=== PATIENT | male | born 1950 | race Caucasian/White ===

== ENCOUNTER 2018-07-13 18:55 | Inpatient (IN) | payer MEDICARE, OTHER ==
[2018-07-13 19:29] LABS: ABS Basophils 0.1 10^3/ul (0-0.2); ABS Eosinophils 0.2 10^3/ul (0-0.6); ABS Lymphocytes 1.8 10^3/ul (1.0-4.8); ABS Monocytes 0.5 10^3/ul (0-0.8); ABS Nucleated RBC 0 10^3/ul; Eosinophil % 1.7 %; Hematocrit 28 % (42-52); Hemoglobin 9.3 g/dl (14.0-18.0); Lymphocyte % 18.6 %; Mean Corpuscular HGB Conc 33 g/dl (31-36); Mean Corpuscular Hemoglobin 30 pg (27-31); Mean Corpuscular Volume 91 fL (80-94); Mean Platelet Volume 8.5 fL (7.4-10.4); Nucleated Red Blood Cells % 0; Platelet Count 323 10^3/ul (150-450); Red Blood Count 3.12 10^6/ul (4.00-5.40); Red Cell Distribution Width 16 % (10.5-15); White Blood Count 9.6 10^3/ul (3.5-10.8)
--- NOTE | 2018-07-13 19:38 | ED ---
Shortness of Breath - HPI Summary HPI Summary: Patient sent to the ED by Dr. Weber urology complains of cold symptoms including nasal congestion, dry cough, 2 weeks, peripheral edema 5 days ( right lower extremity worse than left) exertional shortness of breath 3 days.. Patient has history of renal failure and urine self catheter. Patient also states that he has extreme whitecoat hypertension syndrome up into the 200s. Family states patient has tendency to understates symptoms. - History of Current Complaint Chief Complaint: EDShortnessOfBreath Time Seen by Provider: 07/13/18 19:11 Hx Obtained From: Patient, Family/Director [employer] Onset/Duration: Gradual Onset Current Severity: Moderate Dyspnea At: Exertion Aggrevating Factors: Nothing Alleviating Factors: Nothing Associated Signs & Symptoms: Cough (Nonproductive), Nasal Congestion - Allergy/Home Medications Allergies/Adverse Reactions: Allergies Allergy/AdvReac Type Severity Reaction Status Date / Time No Known Allergies Allergy Verified 07/13/18 19:02 PMH/Surg Hx/FS Hx/Imm Hx Endocrine/Hematology History: Denies: Hx Anticoagulant Therapy Cardiovascular History: Denies: Hx Pacemaker/ICD History: Reports: Hx Acute Renal Failure, Other Problems/Disorders - U/O UP AT NIGHT, PROSTATE SLOW URINATION Denies: Hx Benign Prostatic Hyperplasia, Hx Chronic Renal Failure, Hx Dialysis, Hx Kidney Infection, Hx Kidney Stones Sensory History: Reports: Hx Contacts or Glasses Denies: Hx Cataracts, Hx Eye Injury, Hx Eye Prosthesis, Hx Glaucoma, Hx Legally Blind, Hx Macular Degeneration, Hx Vision Problem, Hx Deafness, Hx Hearing Aid, Hx Hearing Problem, Other Sensory Impairments Opthamlomology History: Reports: Hx Contacts or Glasses Denies: Hx Cataracts, Hx Eye Injury, Hx Eye Prosthesis, Hx Glaucoma, Hx Legally Blind, Hx Macular Degeneration, Hx Vision Problem, Other Sensory Impairments Psychiatric History: Reports: Hx Anxiety Denies: Hx Panic Disorder - Surgical History Surgery Procedure, Year, and Place: tonsilectomy Infectious Disease History: No Infectious Disease History: Denies: Traveled Outside the [place] in Last 30 Days - Family History Known Family History: Positive: Unknown - Social History Alcohol Use: Rare Substance Use Type: Reports: None Smoking Status (MU): Never Smoked Tobacco Have You Smoked in the Last Year: No Review of Systems Constitutional: Negative Eyes: Negative Positive: Nasal Discharge Cardiovascular: Negative Positive: Shortness Of Breath, Cough Gastrointestinal: Negative Genitourinary: Negative Musculoskeletal: Negative Skin: Negative Neurological: Negative Psychological: Normal All Other Systems Reviewed And Are Negative: Yes Physical Exam - Summary Physical Exam Summary: Rales bilaterally. Mild peripheral edema bilateral lower extremities, right worse than left. Triage Information Reviewed: Yes Vital Signs On Initial Exam: Initial Vitals Temp Pulse Resp BP Pulse Ox 97.7 F 113 16 154/86 98 07/13/18 19:03 07/13/18 19:03 07/13/18 19:03 07/13/18 19:03 07/13/18 19:03 Vital Signs Reviewed: Yes Appearance: Positive: Well-Appearing Skin: Positive: Warm Head/Face: Positive: Normal Head/Face Inspection Eyes: Positive: Normal Neck: Positive: Supple Respiratory/Lung Sounds: Positive: Rales - bilat Cardiovascular: Positive: Normal Abdomen Description: Positive: Nontender Musculoskeletal: Positive: Normal Neurological: Positive: Normal Psychiatric: Positive: Normal AVPU Assessment: Alert - Tariq Coma Scale Best Eye Response: 4 - Spontaneous Best Motor Response: 6 - Obeys Commands Best Verbal Response: 5 - Oriented Coma Scale Total: 15 Diagnostics - Vital Signs Vital Signs Temp Pulse Resp BP Pulse Ox 07/13/18 19:03 97.7 F 113 16 154/86 98 - Laboratory Lab Results: Lab Results 07/13/18 Range/Units 19:20 WBC 9.6 (3.5-10.8) 10^3/ul RBC 3.12 L (4.00-5.40) 10^6/ul Hgb 9.3 L (14.0-18.0) g/dl Hct 28 L (42-52) % MCV 91 (80-94) fL MCH 30 (27-31) pg MCHC 33 (31-36) g/dl RDW 16 H (10.5-15) % Plt Count 323 (150-450) 10^3/ul MPV 8.5 (7.4-10.4) fL Neut % (Auto) 73.0 % Lymph % (Auto) 18.6 % Mclean % (Auto) 5.7 % Eos % (Auto) 1.7 % Baso % (Auto) 1.0 % Absolute Neuts (auto) 7.0 (1.5-7.7) 10^3/ul Absolute Lymphs (auto) 1.8 (1.0-4.8) 10^3/ul Absolute Monos (auto) 0.5 (0-0.8) 10^3/ul Absolute Eos (auto) 0.2 (0-0.6) 10^3/ul Absolute Basos (auto) 0.1 (0-0.2) 10^3/ul Absolute Nucleated RBC 0 10^3/ul Nucleated RBC % 0 Result Diagrams: 07/13/18 19:20 07/13/18 19:20 Lab Statement: Any lab studies that have been ordered have been reviewed, and results considered in the medical decision making process. Course/Dx - Course Course Of Treatment: Patient sent to the ED by Dr. Weber urology complains of cold symptoms including nasal congestion, dry cough, 2 weeks, peripheral edema 5 days (right lower extremity worse than left) exertional shortness of breath 3 days.. Patient has history of renal failure and urine self catheter. Patient also states that he has extreme whitecoat hypertension syndrome up into the 200s. Family states patient has tendency to understates symptoms. Physical exam:Rales bilaterally. Mild peripheral edema bilateral lower extremities, right worse than left. Triage vital signs within normal limits. Blood pressure in exam room elevated to 220/120. Checked manually 218/122. Patient states he gets extreme whitecoat syndrome with blood pressure elevating into the 200s. BP elevated, vital signs otherwise unremarkable. Creatinine 11.2. Hemoglobin 9.3. Elevated initial troponin 0.19. Potassium 4.8. BNP 7713. Discussed patient with Dr. Gilliam representing Dr. Weber nephrology, who recommended admission to the hospitalist rather than urgent transfer for dialysis. - Diagnoses Provider Diagnoses: Chronic anemia, Acute on chronic renal failure, CHF (congestive heart failure) Discharge - Sign-Out/Discharge Documenting (check all that apply): Patient Departure - Discharge Plan Condition: Stable Disposition: ADMITTED TO [facility] Referrals: Connor Hunter MD [Primary Care Provider] - - Billing Disposition and Condition Condition: STABLE Disposition: Admitted to [facility]
[2018-07-13 19:45] LABS: ALT 28 U/L (7-52); AST 24 U/L (13-39); Albumin 3.8 g/dL (3.2-5.2); Albumin/Globulin Ratio 1.2 (1-3); Alkaline Phosphatase 72 U/L (34-104); Anion Gap 16 mmol/L (2-11); BUN/Creatinine Ratio 10.8 (8-20); Blood Urea Nitrogen 121 mg/dL (6-24); C Reactive Protein 15.36 mg/L (<8.01); CO2 Carbon Dioxide 24 mmol/L (22-32); Calcium 10.1 mg/dL (8.6-10.3); Chloride 96 mmol/L (101-111); EGFR Non-African American 4.6 (>60); Globulin 3.3 g/dL (2-4); Glucose 120 mg/dL (70-100); Potassium 4.8 mmol/L (3.5-5.0); Sodium 136 mmol/L (135-145); Total Protein 7.1 g/dL (6.4-8.9)
[2018-07-13] MEDS ORDERED: LORazepam INJ* 2 MG/ML 1 ML VIAL IV PUSH ONE (20:06)
[2018-07-13] MEDS ORDERED: Albuterol 2.5 MG/3 ML NEB.SOL* (0.083%) INH PRN (20:23)
--- NOTE | 2018-07-13 20:52 | ADMNOTE ---
Subjective Date of Service: 07/13/18 Interval History: code status full this is admission h/p source from hpi this is a 67 yr old wm who is known to renal service was brought in by girlfriend due to his sob and leg/feet edema. girlfriend was out of town for one week and just came back yesterday. pt drove to pick her up in airport but was so sob that had to drive back from [place] airport. she said his sob has been better---> she later found his leg/feet were very swollen during dinner time and decided to seek medical attention. as per girlfriend, pt has been very vague reg his medical complaints. pt told her that he prob has a cold about 2 weeks ago---> girlfriend called home while away one week ago ---> found pt sounded different over the phone. pt told her that he just had a cold but has been better symptoms robison until she came back yesterday. pt does have increased fatique sob as per nevaehienjuanis for one week. he was here 4 yrs ago for acute renal failure with creatinine around 5.0 has been f/u with Dr Andre rolon for renal problem. phx htn with a component of whitecoat htn cri anxiety chronic anemia with hg around 10 hx of obstructive uropathy doing self cath at home ---> ? atonic bladder pshx dened social hx no cig no etoh due to brain tumor 15 yrs has been with girlfriend for 3 yrs, able to ambulate indp retired fhx denied any htn/dm/cad/cva or familiar renal dz including polyscystic dz Review of Systems - Measurements Intake and Output: Intake and Output Last 24 Hours 07/11/18 07/12/18 07/13/18 07/14/18 06:59 06:59 06:59 06:59 Weight 175 lb - Review of Systems General Comments: sob leg or feet edema Objective Active Medications: Albuterol (Ventolin 2.5 Mg/3 Ml Neb.Janee*) 2.5 mg INH RT.[id number] AWAKE PRN PRN Reason: sob/wheezing Bumetanide 10 mg/ IV Solution 80 mls @ 8 mls/hr IV .PER RATE ALEXI; Protocol Metolazone (Zaroxolyn Tab*) 5 mg PO DAILY@0830 [facility] Vital Signs - 8 hr 07/13/18 07/13/18 07/13/18 19:03 19:15 19:16 Temperature 97.7 F Pulse Rate 113 114 114 Respiratory 16 Rate Blood Pressure 154/86 223/149 (mmHg) O2 Sat by Pulse 98 97 96 Oximetry 07/13/18 07/13/18 19:30 20:17 Temperature Pulse Rate Respiratory 16 20 Rate Blood Pressure 226/131 (mmHg) O2 Sat by Pulse Oximetry Oxygen Devices in Use Now: Nasal Cannula Appearance: nad Eyes: No Scleral Icterus, PERRLA Ears/Nose/Mouth/Throat: NL Teeth, Lips, Gums, Clear Oropharnyx, Mucous Membranes Moist Neck: NL Appearance and Movements; NL JVP, Trachea Midline, No Thyroid Enlargement, Masses Respiratory: Symmetrical Chest Expansion and Respiratory Effort - decreased b/s r> r with few basilar rales not in respiratory distress , - Cardiovascular: NL Sounds; No Murmurs; No JVD, RRR Abdominal: NL Sounds; No Tenderness; No Distention Extremities: - - + 3 pedal edema from foot to knee b/l able to raise ue and le against gravity Skin: No Rash or Ulcers, - - pale looking Neurological: Alert and Oriented x 3, NL Sensation, NL Muscle Strength and Tone Result Diagrams: 07/13/18 19:20 07/13/18 19:20 Additional Lab and Data: Lab Results 07/13/18 Range/Units 19:20 WBC 9.6 (3.5-10.8) 10^3/ul RBC 3.12 L (4.00-5.40) 10^6/ul Hgb 9.3 L (14.0-18.0) g/dl Hct 28 L (42-52) % MCV 91 (80-94) fL MCH 30 (27-31) pg MCHC 33 (31-36) g/dl RDW 16 H (10.5-15) % Plt Count 323 (150-450) 10^3/ul MPV 8.5 (7.4-10.4) fL Neut % (Auto) 73.0 % Lymph % (Auto) 18.6 % Schuyler % (Auto) 5.7 % Eos % (Auto) 1.7 % Baso % (Auto) 1.0 % Absolute Neuts (auto) 7.0 (1.5-7.7) 10^3/ul Absolute Lymphs (auto) 1.8 (1.0-4.8) 10^3/ul Absolute Monos (auto) 0.5 (0-0.8) 10^3/ul Absolute Eos (auto) 0.2 (0-0.6) 10^3/ul Absolute Basos (auto) 0.1 (0-0.2) 10^3/ul Absolute Nucleated RBC 0 10^3/ul Nucleated RBC % 0 EKG Data: ns no acute st t change seen no peak t wave Assess/Plan/Problems-Billing Assessment: this is a 67 yr old wm with hx of cri with baseline creatinine 5.0 4 yrs ago was brought in to er with increased feet/leg edema and sob ---> girlfriend says he might have a cold two weeks ago but she was away until yesterday and found pt was in sig sob with le edema. intial creatinine is 12 but bicarb/k were within normal limits. initial bnp is close to 8000. chest x ray showed cephalization and ? rml infil ---> ct abd to r/o hydro was done which showed no hyro but + distended gallbladder wtih cholelithiasis ( no abd pain with benign abd on exam ) but + r mod pleural effusion and small left pleural effusion with b/ibasilar atelectasis. rml + additional groundglass consolidation/cysts most pronouced on the rll suggestive of active infeciton/inflammation/ edema. 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 will leave for renal to decide ) (2) Volume overload Current Visit: Yes Status: Acute Code(s): E87.70 - FLUID OVERLOAD, UNSPECIFIED SNOMED Code(s): 89168767 Comment: burger inplaced zaroxyline 5 mg daily as per renal bumex ( got ivp from er ) 1 mg/hr for 10 hrs (3) Obstructive uropathy Current Visit: No Status: Suspected Priority: High Onset Date: 06/27/14 Code(s): N13.9 - OBSTRUCTIVE AND REFLUX UROPATHY, UNSPECIFIED SNOMED Code(s): 2413247 Comment: ? atonic bladder ---> selef cath at home burger ck free psa in am (4) Hypertensive urgency Current Visit: Yes Status: Acute Code(s): I16.0 - HYPERTENSIVE URGENCY SNOMED Code(s): 140459033 Comment: labetolol drip ordered as per renal but pharmacy called and stated this med is on national back order and would like to reserve for preg eclampatic pt - lopressor 5 mg along hydralazine 10 q 6 prn ordrered instead tele with anil (5) Elevated C-reactive protein (CRP) Current Visit: Yes Status: Acute Code(s): R79.82 - ELEVATED C-REACTIVE PROTEIN (CRP) SNOMED Code(s): 759317683925076 Comment: not sure it is related to his acute renal failure no wbc no fever on admission blood cx done one set but no abx given yet (6) Pleural effusion, right Current Visit: Yes Status: Acute Code(s): J90 - PLEURAL EFFUSION, NOT ELSEWHERE CLASSIFIED SNOMED Code(s): 76523255 Comment: repeat chest xray ordered for am on bumex drip ck bnp in am (7) Elevated troponin I level Current Visit: Yes Status: Acute Code(s): R74.8 - ABNORMAL LEVELS OF OTHER SERUM ENZYMES SNOMED Code(s): 306432497 Comment: this is related due to his renal failure ekg on admission was neg he took his home asa 325 ---> current asa 325 ON HOLD UNTIL RENAL SEES HIM IN AM ( HE ALREADY TOOK HIS DOSE PRIOR TO ADMISSION ) IN VIEW OF HIS ACUTE RENAL FAILURE echo in am (8) Chronic anemia Current Visit: Yes Status: Acute Code(s): D64.9 - ANEMIA, UNSPECIFIED SNOMED Code(s): 467326415 Comment: baseline hg has around 10 ---> this is prob related to his underlying renal failure iron panel and erythpoientin level ordered for am as well as ldh/lft ( lft on admission wnl 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 does not think he is hemolysis plat wnl as well despite of acute renal failure and no rash) (9) Full code status Current Visit: Yes Status: Acute Code(s): Z78.9 - OTHER SPECIFIED HEALTH STATUS SNOMED Code(s): 593718275 (10) DVT (deep venous thrombosis) Current Visit: Yes Status: Acute Code(s): I82.409 - ACUTE EMBOLISM AND THOMBOS UNSP DEEP VN UNSP LOWER EXTREMITY SNOMED Code(s): 034041595 (11) Distended bladder Current Visit: Yes Status: Acute Code(s): N32.89 - OTHER SPECIFIED DISORDERS OF BLADDER SNOMED Code(s): 85845663 Comment: distended gallbladder with cholelithasis but lft wnl and benign abd moniter lft ordered for am consider deejay oleary in am to eval
[2018-07-13] MEDS ORDERED: Bumetanide IV* 10 MG in PREMIX* 0 ML IV ONE (21:00)
[2018-07-13 21:15] LABS: Iron 59 ug/dL (50-212); Total Iron Binding Capacity 384 mcg/dL (250-450); Transferrin 274 mg/dL (203-362)
[2018-07-13 21:37] LABS: Urine Appearance Cloudy; Urine Bacteria Absent (Absent); Urine Bilirubin Negative (Negative); Urine Blood 2+ (Negative); Urine Color Yellow; Urine Glucose 2+(150 mg/dL) (Negative); Urine Ketones Negative (Negative); Urine Nitrite Negative (Negative); Urine Protein 2+(100 mg/dL) (Negative); Urine Red Blood Cell 3+(>10/hpf) (Absent); Urine Specific Gravity 1.014 (1.010-1.030); Urine Urobilinogen Negative (Negative); Urine White Blood Cell Trace(0-5/hpf) (Absent)
[2018-07-13 21:40] LABS: Urine Creatinine 56.17 mg/dL; Urine Creatinine Concentration 56.17 mg/dL
[2018-07-13] MEDS ORDERED: Metoprolol Tartrate IV* 1 MG/ML 5 ML VIAL IV PRN (21:44)
[2018-07-13] MEDS ORDERED: hydrALAZINE IV* 20 MG/ML VIAL IV SLOW PU PRN (21:45)
[2018-07-13] MEDS: Bumetanide IV* 10 MG in PREMIX* 0 ML IV ONE (22:00)
[2018-07-13] MEDS ORDERED: Labetalol IV* 200 MG in NS 0.9% 250 ML* 160 ML IVPB SCH (22:00)
[2018-07-13 22:16] LABS: UR Microalbumin (mg/L) 2418.9; Urine Microalbumin/Creatinine 4306.3 (<31)
[2018-07-13] MEDS ORDERED: Zolpidem TAB* 5 MG PO ONE (23:00)
[2018-07-14 01:55] LABS: BUN/Creatinine Ratio 11.3 (8-20); Calcium 9.7 mg/dL (8.6-10.3); EGFR Non-African American 4.6 (>60); Potassium 4.4 mmol/L (3.5-5.0)
[2018-07-14] MEDS ORDERED: LORazepam INJ* 2 MG/ML 1 ML VIAL IV PUSH ONE ×2 (02:00→05:20)
[2018-07-14] MEDS ORDERED: LORazepam INJ* 2 MG/ML 1 ML VIAL IV PUSH PRN (02:35)
[2018-07-14] MEDS: Bumetanide IV* 10 MG in PREMIX* 0 ML IV ONE (04:14)
[2018-07-14] MEDS ORDERED: amLODIPine TAB* 5 MG PO ONE (05:30)
[2018-07-14] MEDS ORDERED: hydrALAZINE IV* 20 MG/ML VIAL IV SLOW PU SCH (06:00)
[2018-07-14 06:30] LABS: ABS Basophils 0.1 10^3/ul (0-0.2); ABS Eosinophils 0.1 10^3/ul (0-0.6); ABS Lymphocytes 0.8 10^3/ul (1.0-4.8); ABS Monocytes 0.7 10^3/ul (0-0.8); ABS Neutrophils 6.9 10^3/ul (1.5-7.7); ABS Nucleated RBC 0 10^3/ul; Eosinophil % 1.5 %; Hematocrit 25 % (42-52); Hemoglobin 8.2 g/dl (14.0-18.0); Lymphocyte % 9.1 %; Mean Corpuscular HGB Conc 33 g/dl (31-36); Mean Corpuscular Hemoglobin 30 pg (27-31); Mean Corpuscular Volume 90 fL (80-94); Mean Platelet Volume 9.1 fL (7.4-10.4); Nucleated Red Blood Cells % 0; Platelet Count 260 10^3/ul (150-450); Red Blood Count 2.74 10^6/ul (4.00-5.40); Red Cell Distribution Width 15 % (10.5-15); White Blood Count 8.7 10^3/ul (3.5-10.8)
[2018-07-14 06:41] LABS: INR 1.07 (0.77-1.02)
[2018-07-14 06:47] LABS: ALT 22 U/L (7-52); AST 21 U/L (13-39); Albumin 3.2 g/dL (3.2-5.2); Albumin/Globulin Ratio 1.2 (1-3); Alkaline Phosphatase 64 U/L (34-104); Anion Gap 15 mmol/L (2-11); BUN/Creatinine Ratio 11.8 (8-20); Blood Urea Nitrogen 130 mg/dL (6-24); CO2 Carbon Dioxide 22 mmol/L (22-32); CRP High Sensitivity 14.12 mg/L (<2.00); Calcium 9.4 mg/dL (8.6-10.3); Chloride 98 mmol/L (101-111); EGFR Non-African American 4.7 (>60); Globulin 2.7 g/dL (2-4); Glucose 98 mg/dL (70-100); Magnesium 2.7 mg/dL (1.9-2.7); Phosphorus 6.5 mg/dL (2.5-5.0); Potassium 4.1 mmol/L (3.5-5.0); Sodium 135 mmol/L (135-145); Total Protein 5.9 g/dL (6.4-8.9)
[2018-07-14 07:08] LABS: LDH 353 U/L (140-271)
[2018-07-14 08:50] LABS: Iron 35 ug/dL (50-212); LDH 296 U/L (140-271)
[2018-07-14] MEDS: Metolazone TAB* 5 MG PO SCH (09:11)
[2018-07-14] MEDS: Calcitriol CAP* 0.25 MCG PO SCH ×2 (09:12→21:08)
[2018-07-14] MEDS: Sodium Citrate/Citric Acid* 15 ML UDC PO SCH ×3 (09:12→17:46)
[2018-07-14] MEDS: Sevelamer TAB* 800 MG PO SCH ×3 (11:46→17:46)
--- NOTE | 2018-07-14 11:53 | ECHO ---
Patient: MABLE YOUNGER [facility] Rec#: [id number] : 1950 Date: 07/14/2018 Age: 67y Height: 180 cm / 70.9 in Weight: 79.4 kg / 175.0 lbs Sex: M BSA: 2 Room#: ICU 8 Admit Date#: 07/13/2018 Type: Inpatient Referring: Yeny Tony Reading: Pasha Avalos MD Side Sawyer: Aliza Renteria RN RDCS CC: Connor Hunter MD Transthoracic Echocardiogram Indication: CHF BP: 148/101 HR: 73 Rhythm: NSR Findings History: HTN, CRI, chronic anemia Technical Comments: The study quality is fair. The study was technically limited due to the patient's inability to lay in the left lateral decubitus position. Left Ventricle: The left ventricular chamber size is normal. Moderate concentric left ventricular hypertrophy is observed. There is global hypokinesis of the left ventricle with minor regional variation.the mid to distal inferior segments and the distal anteroapical segments may be relatively more hypokinetic. There is mildly decreased left ventricular systolic function. The estimated ejection fraction is 40-45%. Abnormal left ventricular diastolic function is observed.cannot determine grade. The patient was unable to perform a Valsalva maneuver. Left Atrium: The left atrium is mild to moderately dilated. Right Ventricle: The right ventricular chamber size and systolic function are within normal limits. Right Atrium: The right atrium is mildly dilated. Aortic Valve: The aortic valve is trileaflet. The aortic valve leaflets are mildly thickened. There is aortic annular calcification. There is moderate aortic regurgitation. There is no evidence of aortic stenosis. Mitral Valve: The mitral valve leaflets are mildly thickened. There is mild to moderate mitral regurgitation. There is no evidence of mitral stenosis. Tricuspid Valve: The tricuspid valve structure is not well visualized. There is trace to mild tricuspid regurgitation. Unable to estimate the right ventricular systolic pressure. There is no tricuspid stenosis. Pulmonic Valve: The pulmonic valve appears normal. There is mild pulmonic regurgitation. There is no pulmonic stenosis. Pericardium: There is no significant pericardial effusion. A pericardial fat pad is visualized. A left pleural effusion is present. Aorta: There is no dilatation of the ascending aorta. There is no dilatation of the aortic arch. There is no dilation of the aortic root. Pulmonary Artery: The main pulmonary artery is not well visualized. Venous: The inferior vena cava appears normal in size. There is less than 50% respiratory change in the inferior vena cava dimension. Conclusions Moderate concentric left ventricular hypertrophy is observed. There is global hypokinesis of the left ventricle with minor regional variation; the mid to distal inferior segments and the distal anteroapical segments may be relatively more hypokinetic. The estimated ejection fraction is 40-45%. There is mildly decreased left ventricular systolic function. Abnormal left ventricular diastolic function is observed; cannot determine grade. The left atrium is mild to moderately dilated. The aortic valve leaflets are mildly thickened. There is moderate aortic regurgitation. There is mild to moderate mitral regurgitation. There is trace to mild tricuspid regurgitation. There is mild pulmonic regurgitation. Overall, similar to 06/2014 with slight decrease in reported EF. Unable to compare images directly. Measurements Name Value Normal Range RVDdMajor (2D) 4.1 cm (2.2 - 4.4) RAd ISD 4CH 5.6 cm (3.4 - 4.9) RA (A4C)W 4.3 cm (2.9 - 4.6) IVSd (2D) 1.6 cm (0.6 - 1) LVPWd (2D) 1.5 cm (0.6 - 1) LVIDd (2D) 5.2 cm (3.6 - 5.4) LVIDs (2D) 3.9 cm - LV FS (2D) 25 % (25 - 45) Aortic Annulus 2.2 cm (1.4 - 2.6) Ao root diameter (2D) 3 cm (2.1 - 3.5) Ascending Ao 3.1 cm (2.1 - 3.4) Aortic arch 2.3 cm (1.8 - 3.4) LA dimension (AP) 2D 3.7 cm (2.3 - 3.8) LAd ISD 4CH 5.6 cm (2.9 - 5.3) LA ISD 4CH W 4.4 cm (2.5 - 4.5) Name Value Normal Range LA ESV BP (A/L) index 46.7 ml/m2 - Name Value Normal Range MV E-wave Vmax 0.77 m/sec - MV deceleration time 183 msec - MV A-wave Vmax 0.9 m/sec - MV E:A ratio 0.9 ratio - LV septal e' Vmax 0.07 m/sec - LV lateral e' Vmax 0.06 m/sec - LV E:e' septal ratio 11 ratio - LV E:e' lateral ratio 12.8 ratio - Name Value Normal Range AV Vmax 1.6 m/sec - AV VTI 30.3 cm - AV peak gradient 10 mmHg - AV mean gradient 6 mmHg - LVOT Vmax 1.2 m/sec - LVOT VTI 20.3 cm - LVOT peak gradient 5 mmHg - LVOT mean gradient 3 mmHg - AR PHT 466 msec - GANGA Vmax 0.89 m/sec - Name Value Normal Range IVC diameter 2.1 cm - Name Value Normal Range PV Vmax 0.89 m/sec -
[2018-07-14] MEDS: Bumetanide IV* 0.25 MG/ML 4 ML VIAL SLOW PUSH SCH ×2 (12:02→21:08)
--- NOTE | 2018-07-14 16:29 | PN ---
Subjective Date of Service: 07/14/18 Interval History: SOB little better.Detailed discussion with pt and about dialysis,options, transplant and condition Objective Active Medications: Albuterol (Ventolin 2.5 Mg/3 Ml Neb.Janee*) 2.5 mg INH [id number] AWAKE PRN PRN Reason: sob/wheezing Bumetanide (Bumex*) 2 mg SLOW PUSH BID [facility] Stop: 07/16/18 11:59 Last Admin: 07/14/18 12:02 Dose: 2 mg Calcitriol (Rocaltrol Cap*) 0.25 mcg PO BID [facility] Last Admin: 07/14/18 09:12 Dose: 0.25 mcg Citric Acid/Sodium Citrate (Bicitra*) 30 ml PO TID PC [facility] Last Admin: 07/14/18 12:02 Dose: 30 ml Hydralazine HCl (Apresoline Iv*) 10 mg IV SLOW PU Q4H PRN PRN Reason: BLOOD PRESSURE Lorazepam (Ativan Inj*) 0.5 mg IV PUSH ONCE PRN PRN Reason: ANXIETY Stop: 07/15/18 02:34 Last Admin: 07/14/18 05:19 Dose: 0.5 mg Metolazone (Zaroxolyn Tab*) 5 mg PO DAILY@0830 [facility] Last Admin: 07/14/18 09:11 Dose: 5 mg Metoprolol Tartrate (Lopressor Iv*) 5 mg IV Q6H PRN PRN Reason: BLOOD PRESSURE Sevelamer Carbonate (Renvela Tab*) 800 mg PO TID WITH MEALS [facility] Last Admin: 07/14/18 12:02 Dose: 800 mg Vital Signs - 8 hr 07/14/18 07/14/18 07/14/18 08:30 08:45 09:00 Temperature Pulse Rate 76 77 88 Respiratory 16 21 11 Rate Blood Pressure 153/83 162/88 (mmHg) O2 Sat by Pulse 97 96 93 Oximetry 07/14/18 07/14/18 07/14/18 09:01 09:16 09:30 Temperature Pulse Rate 91 86 80 Respiratory 17 24 20 Rate Blood Pressure 136/84 163/86 174/89 (mmHg) O2 Sat by Pulse 94 95 97 Oximetry 07/14/18 07/14/18 07/14/18 09:45 10:00 10:30 Temperature Pulse Rate 76 87 85 Respiratory 20 16 22 Rate Blood Pressure 150/79 150/88 164/91 (mmHg) O2 Sat by Pulse 97 97 96 Oximetry 07/14/18 07/14/18 07/14/18 11:00 11:30 12:00 Temperature 98.5 F Pulse Rate 76 88 82 Respiratory 18 22 15 Rate Blood Pressure 151/79 160/87 161/88 (mmHg) O2 Sat by Pulse 98 92 98 Oximetry 07/14/18 07/14/18 07/14/18 12:30 13:00 13:30 Temperature Pulse Rate 81 82 74 Respiratory 15 24 17 Rate Blood Pressure 152/82 144/80 129/74 (mmHg) O2 Sat by Pulse 95 97 97 Oximetry 07/14/18 07/14/18 07/14/18 14:00 14:30 15:00 Temperature Pulse Rate 77 76 77 Respiratory 17 16 18 Rate Blood Pressure 151/79 150/74 145/81 (mmHg) O2 Sat by Pulse 96 98 97 Oximetry 07/14/18 07/14/18 07/14/18 15:13 16:00 16:09 Temperature 99.2 F Pulse Rate 80 86 Respiratory 11 24 Rate Blood Pressure 171/89 (mmHg) O2 Sat by Pulse 98 98 Oximetry Oxygen Devices in Use Now: Nasal Cannula, OxyMask Eyes: No Scleral Icterus Ears/Nose/Mouth/Throat: NL Teeth, Lips, Gums Neck: - - JVD present but improved from last night.Maintaining 02 sats Respiratory: Symmetrical Chest Expansion and Respiratory Effort, - - Basal crackles Cardiovascular: NL Sounds; No Murmurs; No JVD, - - 2+ Edema bilateral LE Abdominal: NL Sounds; No Tenderness; No Distention Extremities: - - Edema present no pain Skin: No Rash or Ulcers Neurological: Alert and Oriented x 3, NL Muscle Strength and Tone Result Diagrams: 07/14/18 06:10 07/14/18 06:10 Additional Lab and Data: Lab Results 07/13/18 Range/Units 19:20 WBC 9.6 (3.5-10.8) 10^3/ul RBC 3.12 L (4.00-5.40) 10^6/ul Hgb 9.3 L (14.0-18.0) g/dl Hct 28 L (42-52) % MCV 91 (80-94) fL MCH 30 (27-31) pg MCHC 33 (31-36) g/dl RDW 16 H (10.5-15) % Plt Count 323 (150-450) 10^3/ul MPV 8.5 (7.4-10.4) fL Neut % (Auto) 73.0 % Lymph % (Auto) 18.6 % [place] % (Auto) 5.7 % Eos % (Auto) 1.7 % Baso % (Auto) 1.0 % Absolute Neuts (auto) 7.0 (1.5-7.7) 10^3/ul Absolute Lymphs (auto) 1.8 (1.0-4.8) 10^3/ul Absolute Monos (auto) 0.5 (0-0.8) 10^3/ul Absolute Eos (auto) 0.2 (0-0.6) 10^3/ul Absolute Basos (auto) 0.1 (0-0.2) 10^3/ul Absolute Nucleated RBC 0 10^3/ul Nucleated RBC % 0 Microbiology and Other Data: Microbiology 07/14/18 01:20 Nasal Screen MRSA (PCR) - Final Nasal Mrsa Not Detected EKG Data: ns no acute st t change seen no peak t wave Assess/Plan/Problems-Billing Assessment: 67 y/o with CKD5 with acute worsening,volume overload,hypertensive emergency - Patient Problems (1) Hypertensive emergency Current Visit: Yes Status: Acute Code(s): I16.1 - HYPERTENSIVE EMERGENCY SNOMED Code(s): 890504788960045 Comment: Likely volume driven With weight gain and sig edema Bumex drip and diuretics Labetelolol on back order.Was on IV hydralazine and lopressor prn -Overnight team started Amlodipine.Continue for now despite LE edema as high risk of hyperk with LARISA.Continue IV bumex and metalazone.Add B rhonda till improved in setting of inc troponins while pursuing cardiac w/u (2) Acute on chronic renal failure Current Visit: Yes Status: Acute Code(s): N17.9 - ACUTE KIDNEY FAILURE, UNSPECIFIED; N18.9 - CHRONIC KIDNEY DISEASE, UNSPECIFIED SNOMED Code(s): 621012219 Comment: Renal failure sec to Neurogenic Bladder and chronic kidney damage from urinary retention/?additional reflux nephropathy -Poss FSGS from above CT abd pelvis kidneys atrophic.No hydronephrosis Pt self caths.Garcia cath for strict I/O and help with obstruction PSA Will req urodynamic and f/u records from urology Interestingly pt noted to have 7 g of protein suggesting nephrotic syndrome on spot collection.May be inaccurate.But also noted to have proteinuria before.While this is possible from kidney damage from urinary retention,Also noted to have conc hypertrophy and changes on echo.Will pursue w/u to eval for other etiology predisposing to worsening as well. JAZIEL,ANCA,SPEP,UPEP,free light chains ( eval for amyloid etc),anti gbm,pla2r if avail ( membranous) w/u for completion. Reflux nephropathy can cause FSGS from chronic damage but no serologic marker.Not much kidney really to biopsy.However based on above w/u if further clarity needed, can consider kidney biopsy.Will leave it upto Dr Pickard who knows the pt very well. Completed 10 h bumex drip, will place on bumex 2 mg iv bid No emergent need for HD today.Electrolytes and acid base stable and volume manageable with diuretics.However will likely need dialysis initiated in the next 48-72h based on progress given that he has advanced kidney failure.Plan for Tunelled dialysis catheter with IR tomorrow and dialysis initiation Discussed kidney transplantation with pt and office will initiate referal to transplant center (3) Anemia Current Visit: Yes Status: Acute Code(s): D64.9 - ANEMIA, UNSPECIFIED SNOMED Code(s): 933438137 Comment: sec to renal failure no need for epo and contraindicated with such high bp but will follow closely acutely to eval for pul hemorrhage if acute drop (4) Metabolic acidosis Current Visit: Yes Status: Acute Code(s): E87.2 - ACIDOSIS SNOMED Code(s) : 57193437 Comment: continue bicitra (5) Elevated troponin I level Current Visit: Yes Status: Acute Code(s): R74.8 - ABNORMAL LEVELS OF OTHER SERUM ENZYMES SNOMED Code(s): 879873694 Comment: likely from inc bnp,vol overload and elevation in setting of renal failure however pt high risk for cardiac dx with his underlying renal condition echo w/u as above b rhonda,aspirin,monitor on tele (6) Volume overload Current Visit: Yes Status: Acute Code(s): E87.70 - FLUID OVERLOAD, UNSPECIFIED SNOMED Code(s): 58483622 Comment: as madie above bumex drip transitioning to bumex 2 mg iv bid and metalazone 5 mg po q daily Initiation of dialysis planning BP management to manage flash pul edema Will repeat CXR in am for further evaluation (7) Pulmonary edema Current Visit: No Status: Acute Priority: High Onset Date: 06/27/14 Code (s): J81.1 - CHRONIC PULMONARY EDEMA SNOMED Code(s): 71197125 Comment: see above in vol overload Status and Disposition: Total critical care time spent is 70 mins
[2018-07-14 18:54] LABS: Magnesium 2.8 mg/dL (1.9-2.7)
[2018-07-14 18:59] LABS: Phosphorus 6.9 mg/dL (2.5-5.0)
[2018-07-14] MEDS: Metoprolol Tartrate IV* 1 MG/ML 5 ML VIAL IV PRN (20:15)
[2018-07-14] MEDS: hydrALAZINE IV* 20 MG/ML VIAL IV SLOW PU PRN (23:05)
--- NOTE | 2018-07-15 00:58 | CONS ---
NEPHROLOGY CONSULTATION: DATE OF CONSULT: 07/13/18 REASON FOR CONSULT: [id number] renal failure/volume overload. HISTORY OF PRESENT ILLNESS: A 67-year-old male with a history of chronic kidney disease stage 5, thought to be secondary to neurogenic bladder, evaluated in the ER for shortness of breath. The patient denies any overt shortness of breath, but noted to be extremely edematous with some JVD; also reports that he has gained weight recently and noted to have significant lower extremity edema. The patient was noted to be like this by his who was away for a week and brought the patient then to the ER for further evaluation. The patient's blood pressure in the ER was noted to be 215/130. Initially, it was noted to be 226/131. The patient's prior labs have been reviewed. The patient saw Dr. Pickard in evaluation in March. At that time, his GFR was noted to be less than 10 and his creatinine was noted to be 7. PAST MEDICAL HISTORY: 1. Chronic kidney disease stage 5, as described above. 2. Neurogenic bladder, follows with Urology as an outpatient. 3. The patient was on dialysis for 2 months in 2013, when he was admitted for volume overload and acute kidney injury. He was noted to have flaccid neurogenic bladder at that time and eventually was able to come off dialysis. The patient also reports that he makes about 2 L of urine. 4. The patient self-catheterizes himself at home. 5. Chronic anemia. 6. Anxiety. 7. White-coat hypertension, but the patient has not really been on any blood pressure medications at home. 8. Denies a history of diabetes. MEDICATIONS: Home medication list: 1. Sodium citrate (Bicitra) 30 mL p.o. t.i.d. 2. Sevelamer 800 mg p.o. t.i.d. 3. Calcitriol 0.25 mcg p.o. b.i.d. 4. Aspirin 325 mg p.o. daily p.r.n. SOCIAL HISTORY: Does not smoke cigarettes. No alcohol use. Retired from [employer]. FAMILY HISTORY: Denies any known family history of kidney disease. No known congenital urethral, ureteral, or kidney abnormalities noted in the family. Denies any significant family history of heart disease. REVIEW OF SYSTEMS: Constitutional: Reports feeling very tired. Respiratory: Reports shortness of breath. Cardiovascular: No chest pain, no palpitations. Other review of systems as described in the HPI. Other 14-point review of systems noted to be negative. PHYSICAL EXAM: Vitals on admission notable for blood pressure of 226/131, respiratory rate 16, heart rate 112, temperature 97.7, oxygen saturation 90% on room air, fluctuating between 90% and 97%. HEENT: NC/AT. Heart: S1, S2 present. Regular at the time of exam. Tachycardic at the time of exam. JVD present. Lungs: Noted to have bibasilar crackles. No wheezes. Abdomen: Soft , nontender, no distention. Extremities: Noted to have 2+ edema. Neurologic: Alert and oriented x3. LABORATORY DATA: On admission, sodium 136, potassium 4.8, chloride 96, CO2 24, BUN 121, creatinine noted to be 11.2, glucose noted to be 120. ASSESSMENT AND PLAN: A 67-year-old male with a history of neurogenic bladder and chronic kidney disease stage 5, here with acute worsening in renal function/ volume overload and pulmonary edema. 1. Acute kidney injury on chronic kidney disease, stage 5/volume overload/ pulmonary edema. At this time, the patient's potassium noted to be 4.8. The patient also reports that he makes about 2 L of urine and he self-catheterizes himself. The patient noted to be in significant volume overload, but will acutely manage this with diuretics. We will give the patient 2 mg of IV Bumex and recommended to put the patient on a Bumex drip 10 mg over 10 hours and also recommend addition of metolazone 5 mg p.o. daily. Recommend repeating chest x- ray and monitoring the patient's oxygen status closely. 2. Even though the patient does not require emergent dialysis overnight, based on the patient's progress in the next 24 to 48 hours, the patient would likely need a dialysis initiated as he was already chronic kidney disease stage 5 with worsening with significant volume overload. We will follow the patient closely with the primary team. 3. Hypertensive emergency. Recommend IV labetalol and diuretics as described as the patient's blood pressure seems to be driven significantly by a volume component. 4. With respect to workup for his kidney failure and anasarca, also recommend getting a UA, urine protein and creatinine and a microalbumin/creatinine as the patient was already noted to have more than 3 g of protein during his March visit. If the patient noted to have significant nephrotic range proteinuria, can consider further workup. The patient's etiology of renal failure seems to be secondary to neurogenic bladder and chronic urinary retention and kidney damage; however, a second etiology with acute worsening may also be possible. On the same lines, it would be very important to get a CAT scan of the abdomen and pelvis to evaluate for any hydronephrosis or worsening obstructive uropathy that could be worsening his kidney function acutely and would also be prudent to evaluate for any masses, malignancy and prostate size and function to see if this has any contribution to his renal failure. 5. I recommend getting 2D echocardiogram to evaluate his cardiac function to understand his pulmonary edema and volume overload better. Also serial troponins. 6. Metabolic acidosis. At this time, the patient's bicarb is stable on the Bicitra and this is to be continued. 7. Anemia. The patient does not have any acute indications for blood transfusion or Epogen yet. 8. We will follow the patient closely through his hospital stay in the ICU. Total time spent with the patient is equal to 70 minutes. [id number]/[facility] #: [id number] MTDD
[2018-07-15] MEDS: Metoprolol Tartrate IV* 1 MG/ML 5 ML VIAL IV PRN (03:05)
[2018-07-15 06:36] LABS: ABS Basophils 0.1 10^3/ul (0-0.2); ABS Eosinophils 0.3 10^3/ul (0-0.6); ABS Lymphocytes 1.2 10^3/ul (1.0-4.8); ABS Monocytes 0.6 10^3/ul (0-0.8); ABS Neutrophils 7.7 10^3/ul (1.5-7.7); ABS Nucleated RBC 0 10^3/ul; Eosinophil % 2.7 %; Hematocrit 26 % (42-52); Hemoglobin 8.8 g/dl (14.0-18.0); Lymphocyte % 11.8 %; Mean Corpuscular HGB Conc 34 g/dl (31-36); Mean Corpuscular Hemoglobin 30 pg (27-31); Mean Corpuscular Volume 90 fL (80-94); Mean Platelet Volume 8.6 fL (7.4-10.4); Nucleated Red Blood Cells % 0; Platelet Count 264 10^3/ul (150-450); Red Blood Count 2.88 10^6/ul (4.00-5.40); Red Cell Distribution Width 15 % (10.5-15); White Blood Count 9.8 10^3/ul (3.5-10.8)
[2018-07-15 06:53] LABS: BUN/Creatinine Ratio 10.7 (8-20); Calcium 9.6 mg/dL (8.6-10.3); EGFR Non-African American 4.4 (>60)
--- NOTE | 2018-07-15 07:05 | PN ---
Subjective Date of Service: 07/15/18 Interval History: Feeling "pretty good" today. He is sitting up in the recliner and has no complaints other than being anxious to go home. He is able to lie in bed, he just finds it uncomfortable due to the cords, but denies orthopnea. He has no shortness of breath on 2L O2. He had a nose bleed but says this is not uncommon for him in the winter. His legs feel better and he thinks the swelling has decreased significantly. He has a good appetite. Objective Active Medications: Albuterol (Ventolin 2.5 Mg/3 Ml Neb.Janee*) 2.5 mg INH RT.[id number] AWAKE PRN PRN Reason: sob/wheezing Amlodipine Besylate (Norvasc Tab*) 10 mg PO DAILY [facility] Bumetanide (Bumex*) 2 mg SLOW PUSH BID [facility] Stop: 07/16/18 11:59 Last Admin: 07/14/18 21:08 Dose: 2 mg Calcitriol (Rocaltrol Cap*) 0.25 mcg PO BID [facility] Last Admin: 07/14/18 21:08 Dose: 0.25 mcg Citric Acid/Sodium Citrate (Bicitra*) 30 ml PO TID PC [facility] Last Admin: 07/14/18 17:46 Dose: 30 ml Hydralazine HCl (Apresoline Iv*) 10 mg IV SLOW PU Q4H PRN PRN Reason: SBP > 160 [facility] Last Admin: 07/14/18 23:05 Dose: 10 mg Metolazone (Zaroxolyn Tab*) 5 mg PO DAILY@0830 [facility] Last Admin: 07/14/18 09:11 Dose: 5 mg Metoprolol Tartrate (Lopressor Iv*) 5 mg IV Q6H PRN PRN Reason: SBP > 160 [facility] Last Admin: 07/15/18 03:05 Dose: 5 mg Metoprolol Tartrate (Lopressor Tab*) 25 mg PO DAILY [facility] Sevelamer Carbonate (Renvela Tab*) 800 mg PO TID WITH MEALS [facility] Last Admin: 07/14/18 17:46 Dose: 800 mg Vital Signs - 8 hr 07/14/18 07/14/18 07/15/18 23:16 23:31 00:00 Temperature Pulse Rate 86 84 86 Respiratory 16 15 15 Rate Blood Pressure 174/95 163/78 (mmHg) O2 Sat by Pulse 96 95 94 Oximetry 07/15/18 07/15/18 07/15/18 00:05 00:30 00:43 Temperature 97.8 F Pulse Rate 86 Respiratory 16 12 Rate Blood Pressure 170/93 (mmHg) O2 Sat by Pulse 94 Oximetry 07/15/18 07/15/18 07/15/18 00:58 01:00 01:30 Temperature Pulse Rate 86 87 Respiratory 18 23 18 Rate Blood Pressure 169/97 171/99 (mmHg) O2 Sat by Pulse 94 96 Oximetry 07/15/18 07/15/18 07/15/18 02:00 02:08 02:31 Temperature Pulse Rate 79 83 Respiratory 13 15 14 Rate Blood Pressure 165/98 159/105 (mmHg) O2 Sat by Pulse 96 96 Oximetry 07/15/18 07/15/18 07/15/18 03:00 03:02 03:15 Temperature Pulse Rate 86 86 Respiratory 12 19 17 Rate Blood Pressure 182/101 178/93 (mmHg) O2 Sat by Pulse 97 97 Oximetry 07/15/18 07/15/18 07/15/18 03:30 04:00 04:22 Temperature 98.5 F Pulse Rate 76 73 Respiratory 13 15 16 Rate Blood Pressure 164/97 159/92 (mmHg) O2 Sat by Pulse 95 94 Oximetry 07/15/18 07/15/18 07/15/18 04:30 05:03 05:04 Temperature Pulse Rate 75 75 Respiratory 8 14 13 Rate Blood Pressure 160/98 143/83 (mmHg) O2 Sat by Pulse 96 97 Oximetry 07/15/18 07/15/18 05:30 06:00 Temperature Pulse Rate 72 76 Respiratory 5 16 Rate Blood Pressure 140/80 155/89 (mmHg) O2 Sat by Pulse 97 95 Oximetry Oxygen Devices in Use Now: Nasal Cannula Appearance: alert, comfortable, well appearing, breathing comfortably Eyes: No Scleral Icterus Ears/Nose/Mouth/Throat: NL Teeth, Lips, Gums Neck: - - No JVP Respiratory: Symmetrical Chest Expansion and Respiratory Effort, - - No crackles Cardiovascular: NL Sounds; No Murmurs; No JVD, RRR, - - No rub Abdominal: NL Sounds; No Tenderness; No Distention, No Hepatosplenomegaly Lymphatic: No Cervical Adenopathy Extremities: - - 2+ pitting leg edema, R>L Skin: No Rash or Ulcers Neurological: Alert and Oriented x 3, - - no asterixis Result Diagrams: 07/15/18 06:24 07/15/18 06:24 Additional Lab and Data: Lab Results 07/13/18 Range/Units 19:20 WBC 9.6 (3.5-10.8) 10^3/ul RBC 3.12 L (4.00-5.40) 10^6/ul Hgb 9.3 L (14.0-18.0) g/dl Hct 28 L (42-52) % MCV 91 (80-94) fL MCH 30 (27-31) pg MCHC 33 (31-36) g/dl RDW 16 H (10.5-15) % Plt Count 323 (150-450) 10^3/ul MPV 8.5 (7.4-10.4) fL Neut % (Auto) 73.0 % Lymph % (Auto) 18.6 % [place]ck[place] % (Auto) 5.7 % Eos % (Auto) 1.7 % Baso % (Auto) 1.0 % Absolute Neuts (auto) 7.0 (1.5-7.7) 10^3/ul Absolute Lymphs (auto) 1.8 (1.0-4.8) 10^3/ul Absolute Monos (auto) 0.5 (0-0.8) 10^3/ul Absolute Eos (auto) 0.2 (0-0.6) 10^3/ul Absolute Basos (auto) 0.1 (0-0.2) 10^3/ul Absolute Nucleated RBC 0 10^3/ul Nucleated RBC % 0 Microbiology and Other Data: Microbiology 07/14/18 01:20 Nasal Screen MRSA (PCR) - Final Nasal Mrsa Not Detected EKG Data: ns no acute st t change seen no peak t wave Assess/Plan/Problems-Billing Assessment: This is a 67 year old man with history of CKD who had required HD for a few months 4 years ago; etiology of CKD was thought to be chronic urinary retention ; now admitted with volume overload, worsening renal failure, htn emergency. - Patient Problems (1) Acute on chronic renal failure Current Visit: Yes Status: Acute Code(s): N17.9 - ACUTE KIDNEY FAILURE, UNSPECIFIED; N18.9 - CHRONIC KIDNEY DISEASE, UNSPECIFIED SNOMED Code(s): 048302603 Comment: as above, etiology thought to be from neurogenic bladder/retention and reflux nephropathy; however he has marked proteinuria CT abd pelvis shows atrophic kidneys, no hydro Garcia cath for strict I/O and help with obstruction Serologic work up pending--sent this weekend by Dr. Chapman Good urine output on bumex 2 mg iv bid No need for OFFBEARER SEWER PIPE at this time; lytes and volume acceptable and no overt evidence of uremia Need to discuss plan going forward with Dr. Pickard today (2) Positive for macroalbuminuria Current Visit: Yes Status: Acute Code(s): R80.9 - PROTEINURIA, UNSPECIFIED SNOMED Code(s): 849792307 Comment: work up pending (yinka, anca, etc) biopsy may be warranted? will discuss with nephrology (3) Anemia Current Visit: Yes Status: Acute Code(s): D64.9 - ANEMIA, UNSPECIFIED SNOMED Code(s): 702200711 Comment: stable; likely due to ckd (4) Elevated troponin I level Current Visit: Yes Status: Acute Code(s): R74.8 - ABNORMAL LEVELS OF OTHER SERUM ENZYMES SNOMED Code(s): 175062113 Comment: likely from htn emergency in setting of TERI on CKD however pt high risk for cardiac dx with his underlying renal condition echo b rhonda,aspirin,monitor on tele (5) Hypertensive urgency Current Visit: Yes Status: Acute Code(s): I16.0 - HYPERTENSIVE URGENCY SNOMED Code(s): 101648354 Comment: stable now on metoprolol and amlodipine and bumex (6) Volume overload Current Visit: Yes Status: Acute Code(s): E87.70 - FLUID OVERLOAD, UNSPECIFIED SNOMED Code(s): 25552187 Comment: responding well to bumex iv BP control to prevent flash pulm edema Status and Disposition: Total critical care time spent is 60 min
[2018-07-15 07:18] LABS: Free T4 0.99 ng/dL (0.61-1.12)
[2018-07-15] MEDS: Sodium Citrate/Citric Acid* 15 ML UDC PO SCH ×3 (08:10→17:52)
[2018-07-15] MEDS: Bumetanide IV* 0.25 MG/ML 4 ML VIAL SLOW PUSH SCH ×2 (08:10→20:22)
[2018-07-15] MEDS: Sevelamer TAB* 800 MG PO SCH ×3 (08:10→17:52)
[2018-07-15] MEDS: amLODIPine TAB* 5 MG PO SCH (08:11)
[2018-07-15] MEDS: Metoprolol Tartrate TAB* 25 MG PO SCH (08:11)
[2018-07-15] MEDS: Calcitriol CAP* 0.25 MCG PO SCH ×2 (08:11→20:30)
[2018-07-15] MEDS: Metolazone TAB* 5 MG PO SCH (08:12)
[2018-07-15 09:34] LABS: TSH (Thyroid Stimulating Horm) 4.72 mcIU/mL (0.34-5.60)
[2018-07-16 05:47] LABS: ABS Basophils 0.1 10^3/ul (0-0.2); ABS Eosinophils 0.4 10^3/ul (0-0.6); ABS Lymphocytes 1.1 10^3/ul (1.0-4.8); ABS Monocytes 0.7 10^3/ul (0-0.8); ABS Neutrophils 6.7 10^3/ul (1.5-7.7); ABS Nucleated RBC 0 10^3/ul; Eosinophil % 4.5 %; Hematocrit 25 % (42-52); Hemoglobin 8.5 g/dl (14.0-18.0); Lymphocyte % 12.6 %; Mean Corpuscular HGB Conc 34 g/dl (31-36); Mean Corpuscular Hemoglobin 30 pg (27-31); Mean Corpuscular Volume 90 fL (80-94); Mean Platelet Volume 8.2 fL (7.4-10.4); Nucleated Red Blood Cells % 0; Platelet Count 287 10^3/ul (150-450); Red Blood Count 2.84 10^6/ul (4.00-5.40); Red Cell Distribution Width 15 % (10.5-15)
[2018-07-16 06:02] LABS: EGFR Non-African American 4.2 (>60); Magnesium 2.7 mg/dL (1.9-2.7); Phosphorus 8.1 mg/dL (2.5-5.0); Potassium 3.8 mmol/L (3.5-5.0)
[2018-07-16 06:20] LABS: BUN/Creatinine Ratio 11.4 (8-20)
[2018-07-16 06:35] LABS: Creatinine, Serum 12.05 mg/dL (0.51-0.95)
[2018-07-16 06:36] LABS: Urine Creatinine Concentration 39.67 mg/dL
[2018-07-16 06:58] LABS: Urine TP Concentration 235 mg/dL
--- NOTE | 2018-07-16 09:55 | PN ---
PROGRESS NOTE: DATE OF SERVICE: 07/16/18 HISTORY OF PRESENT ILLNESS: I had seen Mr. Gould yesterday. He had been admitted with an exacerbation of his chronic renal insufficiency secondary to obstructive uropathy. He had previously been on dialysis and had some recovery of renal function when starting on frequent self-catheterizations. He has been having some easy fatigability, some tremulousness. He had noticed some worsening of edema. He had had some weight gain. He was brought into the hospital where he was noted to have a significant elevation in his baseline serum creatinine. We had a prolonged discussion of approximately 45 minutes of the issue of whether to proceed along with dialysis. At this point, I pointed out to him that his renal function was considerably worse than it had been. I pointed out the risks to him including the risk of as well as worsening of his symptomatology. We discussed the issue of the potential for other superimposed nephrologic illnesses particularly because of the development of proteinuria. I discussed with him the issue of immunosuppression should one of those diagnoses be confirmed. He was not interested in proceeding on with immunosuppression even if we found one of those diseases. We discussed the issue of transplantation which is complicated by his neurogenic bladder. I recommended to him that we proceed along with placement of a cuffed tunneled hemodialysis catheter and treatment with hemodialysis and then eventually potentially the movement to home hemodialysis. His significant other was with him in the room during these discussions. I communicated all of this to Dr. Shaver. [id number]/[facility] #: [id number] [place]
[2018-07-16] MEDS ORDERED: ceFAZolin 1 GM in Dextrose (*) 1 GM/50 ML BAG IVPB ONE (10:00)
[2018-07-16] MEDS ORDERED: ceFAZolin 1 GM* X ONE DOSE (AddVan) IVPB ×2 (10:00)
[2018-07-16] MEDS ORDERED: Midazolam* 1 MG/ML 2 ML VIAL (2 MG) ONE (10:07)
[2018-07-16] MEDS ORDERED: fentaNYL* 50 MCG/ML 2 ML VIAL (100 MCG VIAL) ONE (10:08)
[2018-07-16 10:27] LABS: Hepatitis B Surface Antigen Nonreactive (Nonreactive)
[2018-07-16 10:45] LABS: Hepatitis C Antibody Nonreactive (Nonreactive)
[2018-07-16 10:56] LABS: Hepatitis B Surface AB Not Immune (Immune)
[2018-07-16] MEDS: Sodium Citrate/Citric Acid* 15 ML UDC PO SCH ×3 (12:37→17:27)
[2018-07-16] MEDS: Sevelamer TAB* 800 MG PO SCH ×3 (12:37→17:27)
[2018-07-16] MEDS: Bumetanide IV* 0.25 MG/ML 4 ML VIAL SLOW PUSH SCH (13:11)
[2018-07-16] MEDS: amLODIPine TAB* 5 MG PO SCH (13:12)
[2018-07-16] MEDS: Metoprolol Tartrate TAB* 25 MG PO SCH (13:12)
[2018-07-16] MEDS: Metolazone TAB* 5 MG PO SCH (13:12)
[2018-07-16] MEDS: Calcitriol CAP* 0.25 MCG PO SCH ×2 (13:22→20:27)
[2018-07-16] MEDS: hydrALAZINE IV* 20 MG/ML VIAL IV SLOW PU PRN (14:51)
[2018-07-16] MEDS ORDERED: Saline NASAL SPRAY 0.65%* BTL BOTH NARES PRN (15:17)
[2018-07-16] MEDS: Acetaminophen TAB* 325 MG PO PRN ×2 (15:46→20:27)
--- NOTE | 2018-07-16 16:01 | PN ---
Subjective Date of Service: 07/16/18 Interval History: Called for fever and tachycardia. Mr Gould is feeling poorly with chills but no other localizing symptoms. His permcath was placed this morning uneventfully. Objective Active Medications: Acetaminophen (Tylenol Tab*) 650 mg PO Q4H PRN PRN Reason: FEVER Last Admin: 07/16/18 15:46 Dose: 650 mg Albuterol (Ventolin 2.5 Mg/3 Ml Neb.Janee*) 2.5 mg INH [id number] AWAKE PRN PRN Reason: sob/wheezing Amlodipine Besylate (Norvasc Tab*) 10 mg PO DAILY [facility] Last Admin: 07/16/18 13:12 Dose: 10 mg Calcitriol (Rocaltrol Cap*) 0.25 mcg PO BID [facility] Last Admin: 07/16/18 13:22 Dose: 0.25 mcg Citric Acid/Sodium Citrate (Bicitra*) 30 ml PO TID PC [facility] Last Admin: 07/16/18 13:11 Dose: 30 ml Hydralazine HCl (Apresoline Iv*) 10 mg IV SLOW PU Q4H PRN PRN Reason: SBP > 160 MMHG Last Admin: 07/16/18 14:51 Dose: 10 mg Cefazolin Sodium 500 mg/ (Sodium Chloride) 50 mls @ 200 mls/hr IVPB Q12H [facility] Metolazone (Zaroxolyn Tab*) 5 mg PO DAILY@0830 [facility] Last Admin: 07/16/18 13:12 Dose: 5 mg Metoprolol Tartrate (Lopressor Iv*) 5 mg IV Q6H PRN PRN Reason: SBP > 160 MMHG Last Admin: 07/15/18 03:05 Dose: 5 mg Metoprolol Tartrate (Lopressor Tab*) 25 mg PO DAILY [facility] Last Admin: 07/16/18 13:12 Dose: 25 mg Sevelamer Carbonate (Renvela Tab*) 800 mg PO TID WITH MEALS [facility] Last Admin: 07/16/18 13:12 Dose: 800 mg Sodium Chloride (Sodium Chloride 0.65% Nasal [place]*) 1 spray BOTH NARES Q4H PRN PRN Reason: CONGESTION Vital Signs - 8 hr 07/16/18 07/16/18 07/16/18 08:00 12:20 14:43 Temperature 98.7 F 100.6 F Pulse Rate 94 98 Respiratory 16 14 18 Rate Blood Pressure 183/94 185/83 (mmHg) O2 Sat by Pulse 99 97 Oximetry Oxygen Devices in Use Now: Nasal Cannula Appearance: alert, rigors, no distress but uncomfortable Eyes: No Scleral Icterus Ears/Nose/Mouth/Throat: NL Teeth, Lips, Gums Respiratory: Symmetrical Chest Expansion and Respiratory Effort Cardiovascular: RRR, - - 2+ edema b/l Abdominal: NL Sounds; No Tenderness; No Distention Lymphatic: No Cervical Adenopathy Skin: No Rash or Ulcers, - - site of permcath is clean Neurological: Alert and Oriented x 3 Result Diagrams: 07/16/18 05:36 07/16/18 06:00 Additional Lab and Data: Lab Results 07/13/18 Range/Units 19:20 WBC 9.6 (3.5-10.8) 10^3/ul RBC 3.12 L (4.00-5.40) 10^6/ul Hgb 9.3 L (14.0-18.0) g/dl Hct 28 L (42-52) % MCV 91 (80-94) fL MCH 30 (27-31) pg MCHC 33 (31-36) g/dl RDW 16 H (10.5-15) % Plt Count 323 (150-450) 10^3/ul MPV 8.5 (7.4-10.4) fL Neut % (Auto) 73.0 % Lymph % (Auto) 18.6 % Warren % (Auto) 5.7 % Eos % (Auto) 1.7 % Baso % (Auto) 1.0 % Absolute Neuts (auto) 7.0 (1.5-7.7) 10^3/ul Absolute Lymphs (auto) 1.8 (1.0-4.8) 10^3/ul Absolute Monos (auto) 0.5 (0-0.8) 10^3/ul Absolute Eos (auto) 0.2 (0-0.6) 10^3/ul Absolute Basos (auto) 0.1 (0-0.2) 10^3/ul Absolute Nucleated RBC 0 10^3/ul Nucleated RBC % 0 Microbiology and Other Data: Microbiology 07/14/18 01:20 Nasal Screen MRSA (PCR) - Final Nasal Mrsa Not Detected EKG Data: ns no acute st t change seen no peak t wave Assess/Plan/Problems-Billing Assessment: This is a 67 year old man with history of CKD who had required HD for a few months 4 years ago; etiology of CKD was thought to be chronic urinary retention ; now admitted with volume overload, worsening renal failure, htn emergency. - Patient Problems (1) Sepsis Current Visit: Yes Status: Acute Comment: Source is unclear but most concerning for bloodstream infection--check stat blood cultures and UA. Start cefazolin empirically after blood cultures. No IVF given ESRDD. (2) Acute on chronic renal failure Current Visit: Yes Status: Acute Code(s): N17.9 - ACUTE KIDNEY FAILURE, UNSPECIFIED; N18.9 - CHRONIC KIDNEY DISEASE, UNSPECIFIED SNOMED Code(s): 473224270 Comment: etiology thought to be from neurogenic bladder/retention and reflux nephropathy; however he has marked proteinuria. regardless, he would not want pulse-dose steroids anyway, so proceding with HD is appropriate CT abd pelvis shows atrophic kidneys, no hydro Garcia cath for strict I/O and help with obstruction Serologic work up pending--sent this weekend by Dr. Chapman Good urine output on bumex 2 mg iv bid No need for CONVENTION WORKER at this time; lytes and volume acceptable and no overt evidence of uremia (3) Positive for macroalbuminuria Current Visit: Yes Status: Acute Code(s): R80.9 - PROTEINURIA, UNSPECIFIED SNOMED Code(s): 342765058 Comment: work up pending (yinka, anca, etc) but again, after a long discussion with Carlton Rico decided he would not want pulse dose steroids regardless (4) Anemia Current Visit: Yes Status: Acute Code(s): D64.9 - ANEMIA, UNSPECIFIED SNOMED Code(s): 052068145 Comment: stable; likely due to ckd (5) Elevated troponin I level Current Visit: Yes Status: Acute Code(s): R74.8 - ABNORMAL LEVELS OF OTHER SERUM ENZYMES SNOMED Code(s): 834864883 Comment: likely from htn emergency in setting of TERI on CKD however pt high risk for cardiac dx with his underlying renal condition echo b rhonda,aspirin,monitor on tele (6) Hypertensive urgency Current Visit: Yes Status: Acute Code(s): I16.0 - HYPERTENSIVE URGENCY SNOMED Code(s): 581877736 Comment: stable now on metoprolol and amlodipine and bumex (7) Volume overload Current Visit: Yes Status: Acute Code(s): E87.70 - FLUID OVERLOAD, UNSPECIFIED SNOMED Code(s): 61182887 Comment: responding well to bumex iv BP control to prevent flash pulm edema Status and Disposition: Total critical care time spent is 60 min
[2018-07-16 16:05] LABS: Kappa Free Light Chain 16.7 mg/dL
[2018-07-16 16:31] LABS: Urine Appearance Clear; Urine Bacteria Absent (Absent); Urine Bilirubin Negative (Negative); Urine Blood 2+ (Negative); Urine Color Straw; Urine Glucose 2+(150 mg/dL) (Negative); Urine Ketones Negative (Negative); Urine Nitrite Negative (Negative); Urine Protein 2+(100 mg/dL) (Negative); Urine Red Blood Cell 3+(>10/hpf) (Absent); Urine Urobilinogen Negative (Negative); Urine White Blood Cell 1+(6-10/hpf) (Absent)
[2018-07-16] MEDS: ceFAZolin 500 MG VIAL(*) 500 MG in NS 0.9% 50 ML* 50 ML IVPB SCH (16:37)
[2018-07-16 21:56] LABS: Calcium 9.3 mg/dL (8.6-10.3); EGFR Non-African American 4.1 (>60); Magnesium 2.5 mg/dL (1.9-2.7); Potassium 3.6 mmol/L (3.5-5.0)
[2018-07-16 22:15] LABS: BUN/Creatinine Ratio 11.4 (8-20)
[2018-07-17] MEDS: ceFAZolin 500 MG VIAL(*) 500 MG in NS 0.9% 50 ML* 50 ML IVPB SCH ×2 (03:30→17:08)
[2018-07-17 05:37] LABS: ABS Basophils 0 10^3/ul (0-0.2); ABS Eosinophils 0.1 10^3/ul (0-0.6); ABS Lymphocytes 1.1 10^3/ul (1.0-4.8); ABS Monocytes 0.7 10^3/ul (0-0.8); ABS Neutrophils 11.8 10^3/ul (1.5-7.7); ABS Nucleated RBC 0 10^3/ul; Eosinophil % 0.8 %; Hematocrit 22 % (42-52); Hemoglobin 7.3 g/dl (14.0-18.0); Lymphocyte % 7.7 %; Mean Corpuscular HGB Conc 34 g/dl (31-36); Mean Corpuscular Hemoglobin 30 pg (27-31); Mean Corpuscular Volume 89 fL (80-94); Mean Platelet Volume 8.1 fL (7.4-10.4); Nucleated Red Blood Cells % 0; Platelet Count 241 10^3/ul (150-450); Red Blood Count 2.43 10^6/ul (4.00-5.40); Red Cell Distribution Width 15 % (10.5-15); White Blood Count 13.8 10^3/ul (3.5-10.8)
[2018-07-17 05:46] LABS: INR 1.07 (0.77-1.02)
[2018-07-17 05:56] LABS: Albumin 2.9 g/dL (3.2-5.2); Albumin/Globulin Ratio 1.1 (1-3); Calcium 9.4 mg/dL (8.6-10.3); Globulin 2.6 g/dL (2-4); Indirect Bilirubin 0.2 mg/dL (0.3-1.0); Magnesium 2.7 mg/dL (1.9-2.7); Potassium 3.5 mmol/L (3.5-5.0); Total Bilirubin 0.3 mg/dL (0.2-1.0); Total Protein 5.5 g/dL (6.4-8.9)
[2018-07-17 06:40] LABS: BUN/Creatinine Ratio 11.1 (8-20)
--- NOTE | 2018-07-17 07:57 | PN ---
Subjective Date of Service: 07/17/18 Interval History: Mr. Gould had an uneventful night. He feels much better this morning and his agrees he is much improved. He has been afebrile since I saw him yesterday afternoon. No flank pain, no headache, no diarrhea, no rashes, no cough. Objective Active Medications: Acetaminophen (Tylenol Tab*) 650 mg PO Q4H PRN PRN Reason: FEVER Last Admin: 07/16/18 20:27 Dose: 650 mg Albuterol (Ventolin 2.5 Mg/3 Ml Neb.Janee*) 2.5 mg INH [id number] AWAKE PRN PRN Reason: sob/wheezing Amlodipine Besylate (Norvasc Tab*) 10 mg PO DAILY [facility] Last Admin: 07/16/18 13:12 Dose: 10 mg Calcitriol (Rocaltrol Cap*) 0.25 mcg PO BID [facility] Last Admin: 07/16/18 20:27 Dose: 0.25 mcg Citric Acid/Sodium Citrate (Bicitra*) 30 ml PO TID [facility] Last Admin: 07/16/18 17:27 Dose: 30 ml Hydralazine HCl (Apresoline Iv*) 10 mg IV SLOW PU Q4H PRN PRN Reason: SBP > 160 MMHG Last Admin: 07/16/18 14:51 Dose: 10 mg Cefazolin Sodium 500 mg/ (Sodium Chloride) 50 mls @ 200 mls/hr IVPB Q12H [facility] Last Admin: 07/17/18 03:30 Dose: 200 mls/hr Metolazone (Zaroxolyn Tab*) 5 mg PO DAILY@0830 [facility] Last Admin: 07/16/18 13:12 Dose: 5 mg Metoprolol Tartrate (Lopressor Iv*) 5 mg IV Q6H PRN PRN Reason: SBP > 160 MMHG Last Admin: 07/15/18 03:05 Dose: 5 mg Metoprolol Tartrate (Lopressor Tab*) 25 mg PO DAILY [facility] Last Admin: 07/16/18 13:12 Dose: 25 mg Sevelamer Carbonate (Renvela Tab*) 800 mg PO TID WITH MEALS [facility] Last Admin: 07/16/18 17:27 Dose: 800 mg Sodium Chloride (Sodium Chloride 0.65% Nasal [place]*) 1 spray BOTH NARES Q4H PRN PRN Reason: CONGESTION Last Admin: 07/16/18 19:00 Dose: 1 spray Vital Signs - 8 hr 07/17/18 07/17/18 03:19 07:11 Temperature 99.0 F 98.3 F Pulse Rate 78 81 Respiratory 18 20 Rate Blood Pressure 140/71 139/56 (mmHg) O2 Sat by Pulse 96 97 Oximetry Oxygen Devices in Use Now: Nasal Cannula Appearance: alert, well appearing Eyes: No Scleral Icterus Ears/Nose/Mouth/Throat: NL Teeth, Lips, Gums Respiratory: Symmetrical Chest Expansion and Respiratory Effort, Clear to Auscultation Cardiovascular: NL Sounds; No Murmurs; No JVD, RRR, - - right chest wall permcath Abdominal: NL Sounds; No Tenderness; No Distention Lymphatic: No Cervical Adenopathy Extremities: No Edema Skin: No Rash or Ulcers Neurological: Alert and Oriented x 3, - - no nuchal rigidity Result Diagrams: 07/17/18 05:25 07/17/18 05:25 Additional Lab and Data: Lab Results 07/13/18 Range/Units 19:20 WBC 9.6 (3.5-10.8) 10^3/ul RBC 3.12 L (4.00-5.40) 10^6/ul Hgb 9.3 L (14.0-18.0) g/dl Hct 28 L (42-52) % MCV 91 (80-94) fL MCH 30 (27-31) pg MCHC 33 (31-36) g/dl RDW 16 H (10.5-15) % Plt Count 323 (150-450) 10^3/ul MPV 8.5 (7.4-10.4) fL Neut % (Auto) 73.0 % Lymph % (Auto) 18.6 % [place] % (Auto) 5.7 % Eos % (Auto) 1.7 % Baso % (Auto) 1.0 % Absolute Neuts (auto) 7.0 (1.5-7.7) 10^3/ul Absolute Lymphs (auto) 1.8 (1.0-4.8) 10^3/ul Absolute Monos (auto) 0.5 (0-0.8) 10^3/ul Absolute Eos (auto) 0.2 (0-0.6) 10^3/ul Absolute Basos (auto) 0.1 (0-0.2) 10^3/ul Absolute Nucleated RBC 0 10^3/ul Nucleated RBC % 0 Microbiology and Other Data: Microbiology 07/14/18 01:20 Nasal Screen MRSA (PCR) - Final Nasal Mrsa Not Detected EKG Data: ns no acute st t change seen no peak t wave Assess/Plan/Problems-Billing Assessment: This is a 67 year old man with history of CKD who had required HD for a few months 4 years ago; etiology of CKD was thought to be chronic urinary retention ; now admitted with volume overload, worsening renal failure, htn emergency. - Patient Problems (1) Sepsis Current Visit: Yes Status: Acute Comment: Improved this morning after 2 doses of cefazolin. Source is unclear but most concerning for bloodstream infection--blood cultures are pending. UA unremarkable No other localizing source Remains volume overloaded--IVF contraindicated (2) Acute on chronic renal failure Current Visit: Yes Status: Acute Code(s): N17.9 - ACUTE KIDNEY FAILURE, UNSPECIFIED; N18.9 - CHRONIC KIDNEY DISEASE, UNSPECIFIED SNOMED Code(s): 733313547 Comment: etiology thought to be from neurogenic bladder/retention and reflux nephropathy; however he has marked proteinuria. regardless, he would not want pulse-dose steroids anyway, so proceding with HD is appropriate CT abd pelvis shows atrophic kidneys, no hydro Garcia cath for strict I/O and help with obstruction Serologic work up pending--sent this weekend by Dr. Chapman Good urine output on bumex 2 mg iv bid No need for BUDGET RECORD CLERK at this time; lytes and volume acceptable and no overt evidence of uremia (3) Positive for macroalbuminuria Current Visit: Yes Status: Acute Code(s): R80.9 - PROTEINURIA, UNSPECIFIED SNOMED Code(s): 185281684 Comment: work up pending (yinka, anca, etc) but again, after a long discussion with Carlton Rico decided he would not want pulse dose steroids regardless (4) Anemia Current Visit: Yes Status: Acute Code(s): D64.9 - ANEMIA, UNSPECIFIED SNOMED Code(s): 050594037 Comment: decreased this morning but evidence of bleeding goal is >7, will continue to monitor (5) Elevated troponin I level Current Visit: Yes Status: Acute Code(s): R74.8 - ABNORMAL LEVELS OF OTHER SERUM ENZYMES SNOMED Code(s): 171710856 Comment: likely from htn emergency in setting of TERI on CKD however pt high risk for cardiac dx with his underlying renal condition echo b rhonda,aspirin,monitor on tele (6) Hypertensive urgency Current Visit: Yes Status: Acute Code(s): I16.0 - HYPERTENSIVE URGENCY SNOMED Code(s): 843580170 Comment: stable now on metoprolol and amlodipine and bumex (7) Volume overload Current Visit: Yes Status: Acute Code(s): E87.70 - FLUID OVERLOAD, UNSPECIFIED SNOMED Code(s): 75058549 Comment: responding well to bumex iv BP control to prevent flash pulm edema
[2018-07-17] MEDS: Sodium Citrate/Citric Acid* 15 ML UDC PO SCH ×3 (08:30→17:08)
[2018-07-17] MEDS: Sevelamer TAB* 800 MG PO SCH ×3 (08:31→17:08)
[2018-07-17] MEDS: Metoprolol Tartrate TAB* 25 MG PO SCH (08:31)
[2018-07-17] MEDS: Metolazone TAB* 5 MG PO SCH (08:31)
[2018-07-17] MEDS: amLODIPine TAB* 5 MG PO SCH (08:31)
[2018-07-17] MEDS ORDERED: Bisacodyl SUPP* 10 MG SUPP PR PRN (13:40)
[2018-07-17 14:10] LABS: TB Mitogen minus Nil Result 6.53 IU/mL; TB Nil Result 0.02 IU/mL; TB1 Ag minus Nil Result 0 IU/mL
[2018-07-17] MEDS: Calcitriol CAP* 0.25 MCG PO SCH ×2 (17:00→20:58)
[2018-07-17 17:08] LABS: Albumin 2.7 g/dL (3.4-4.7); Albumin/Globulin Ratio 0.84; Gamma Globulin 0.9 g/dL (0.6-1.6); Total Protein(PEP) 5.8 g/dL (6.3 - 7.9)
[2018-07-17] MEDS ORDERED: Heparin DIALYSIS ONLY(*) 1,000 UNITS/ML VIAL DIALYSIS ONE (17:17)
[2018-07-17] MEDS ORDERED: Epoetin Alfa* 10,000 UNITS/ML VIAL IV ONE (17:17)
[2018-07-17] MEDS: Acetaminophen TAB* 325 MG PO PRN (20:58)
[2018-07-17] MEDS: hydrALAZINE IV* 20 MG/ML VIAL IV SLOW PU PRN (21:59)
[2018-07-18] MEDS: Metoprolol Tartrate IV* 1 MG/ML 5 ML VIAL IV PRN (00:04)
[2018-07-18] MEDS: ceFAZolin 500 MG VIAL(*) 500 MG in NS 0.9% 50 ML* 50 ML IVPB SCH (03:58)
[2018-07-18 05:37] LABS: Hematocrit 22 % (42-52); Hemoglobin 7.3 g/dl (14.0-18.0); Mean Corpuscular HGB Conc 34 g/dl (31-36); Mean Corpuscular Hemoglobin 30 pg (27-31); Mean Corpuscular Volume 89 fL (80-94); Mean Platelet Volume 8.6 fL (7.4-10.4); Platelet Count 254 10^3/ul (150-450); Red Blood Count 2.46 10^6/ul (4.00-5.40); Red Cell Distribution Width 15 % (10.5-15); White Blood Count 10.5 10^3/ul (3.5-10.8)
[2018-07-18 05:56] LABS: BUN/Creatinine Ratio 10.3 (8-20); Calcium 9.4 mg/dL (8.6-10.3); EGFR Non-African American 6.1 (>60); Magnesium 2.3 mg/dL (1.9-2.7); Potassium 3.5 mmol/L (3.5-5.0)
[2018-07-18] MEDS: Sevelamer TAB* 800 MG PO SCH ×2 (09:03→12:30)
[2018-07-18] MEDS: Metolazone TAB* 5 MG PO SCH (09:03)
[2018-07-18] MEDS: Metoprolol Tartrate TAB* 25 MG PO SCH (09:03)
[2018-07-18] MEDS: Sodium Citrate/Citric Acid* 15 ML UDC PO SCH ×2 (09:04→12:30)
[2018-07-18] MEDS: amLODIPine TAB* 5 MG PO SCH (09:04)
[2018-07-18] MEDS: Calcitriol CAP* 0.25 MCG PO SCH (09:07)
[2018-07-18] MEDS: hydrALAZINE IV* 20 MG/ML VIAL IV SLOW PU PRN (10:03)
[2018-07-18 12:20] VITALS: BP 140/72
--- NOTE | 2018-07-18 13:19 | DS ---
CC: Dr. Pickard DISCHARGE SUMMARY: DATE OF ADMISSION: 07/13/18 DATE OF DISCHARGE: 07/18/18 PRINCIPAL DISCHARGE DIAGNOSES: 1. End-stage renal disease. 2. Hypertensive urgency. 3. Dti-AP-bconhyiob myocardial infarction. 4. Presumed blood stream infection. SECONDARY DISCHARGE DIAGNOSES: 1. Anemia of chronic kidney disease. 2. Atonic bladder and reflux nephropathy. MEDICATIONS AT THE TIME OF DISCHARGE: 1. Aspirin 81 mg daily. 2. Bicitra 30 mL t.i.d. 3. Sevelamer 800 mg t.i.d. 4. Calcitriol 0.25 mcg b.i.d. 5. Keflex 250 mg every other day. 6. Amlodipine 10 mg daily. 7. Toprol-XL 25 mg daily. 8. Bumex 2 mg daily. PHYSICAL EXAM AT DISCHARGE: Temperature 98.8, heart rate 91, respiratory rate 16, pulse ox 98% on room air, blood pressure 172/78. General: Alert, well- appearing man, in no distress. He is sitting up in his chair and walking to the hallway frequently. HEENT: His pupils are 3 mm bilaterally. His oral mucosa is moist. Neck: He has JVP to 8 cm. He has no cervical adenopathy. Chest: He has the PermCath on his right chest wall. He is in a regular rate and rhythm with no murmurs. His lungs are clear bilaterally. His abdomen is soft, nontender, nondistended. He has 1+ lower extremity edema bilaterally. Neurologic: He has no asterixis, no tremor. He is oriented x3. He is mildly forgetful, but answers all questions and commands appropriately. HOSPITAL COURSE BY PROBLEM: 1. End-stage renal disease. Mr. Gould has a long history of chronic kidney disease for which he has followed with Dr. Pickard for many years. He required hemodialysis for several months 4 years ago, but was able to be discontinued from hemodialysis and has done well since that time. At admission, he was short of breath and was noted to have a markedly reduced GFR from his baseline so Mr. Gould was admitted to the ICU with volume overload. His electrolytes and acid-base status were acceptable and he had no indication for urgent renal replacement therapy. He underwent diuresis including a Bumex drip at admission and responded quite well. The etiology of his renal failure is thought to be from chronic reflux nephropathy; however, macroalbuminuria was noted, so other etiologies were considered. The reason for sudden decompensation may have been a recent viral illness. Further work up was discussed between the patient and Dr. Pickard, and Dr. Pickard explained that high dose pulse steroids would be the treatment if biopsies were positive and Mr. Gould elected to defer a biopsy and proceed with dialysis. This conversation can continue as an outpatient but in the meantime, his BUN continued to rise and his creatinine plateaued around 12.5 and since the trajectory is expected to continue this way, Dr. Pickard recommended a PermCath placement and initiation of dialysis on this admission. He underwent a tunneled catheter placement on 07/16/18 and underwent a first hemodialysis session on 07/17/18 and he tolerated it very well. On the morning of 07/18/18, he feels good. His potassium is 3.5. His bicarb is 23. His BUN is 90 from 139 and his creatinine is 8.78 from 2.54. He has maintained good urine output throughout his hospitalization and has responded well to Bumex, so I am discharging him on Bumex. He will also continue sevelamer, calcitriol, and Bicitra. He will come back to have his next dialysis session on Sunday morning at 5:30. He will be on a Sunday, , Sunday schedule and will follow closely with Dr. Pickard. 2. Sepsis. Mr. Gould had a fever, rigors, leukocytosis, and tachycardia several hours after his tunneled catheter was placed on 07/16/18. His blood cultures had been negative for 2 consecutive days and he has been on cefazolin since that time. His urinalysis was unremarkable and he had no other localizing symptoms. It will be unusual for a blood stream infection to occur so quickly after a tunneled catheter placement, but given the time course, I am treating him empirically for a transient bacteremia and discharging him on every other day Keflex. 3. Hypertensive urgency likely related to end-stage renal disease. New antihypertensives were added and he responded adequately and ultimately, his blood pressure will be better managed with dialysis. 4. NSTEMI. His troponin peaked at 0.38 likely related to demand in the setting of volume overload and end-stage renal disease; however, it should be noted that a transthoracic echocardiogram performed on 07/14/18 showed concentric LVH with global hypokinesis of the LV and minor regional variation with an EF of 40% to 45% and abnormal diastolic function. I would recommend a stress test in the future after he has stabilized on dialysis. 5. Obstructive uropathy with reflux nephropathy. This has been a chronic problem for him and he intermittently straight caths at home. He was maintained with the Garcia catheter while he was inpatient but he will be discharged with continuation of intermittent straight catheterization. 6. Anemia. Dr. Pickard started epoetin carin while he was admitted. He had no evidence of bleeding. His discharge hemoglobin is 7.3. DISPOSITION: Mr. Gould will be discharged to home on 07/18/18 with his . His discharge weight is 79.6 kilos. He is to report to dialysis on Sunday morning at 5:30 a.m. and he is aware of this. I have discussed his care with Dr. Pickard and he is in agreement with this plan. Mr. Gould is instructed to return to the emergency department should he experience loss of urine output, chest pain, shortness of breath, or any other new symptoms. TIME SPENT: Sixty minutes were spent on the discharge with the patient. [id number]/[facility] #: [id number] [place]
[2018-07-18 15:02] LABS: Albumin 55 %; Albumin/Globulin Ratio 1.22; Gamma Globulin 9 %; Total Protein Concentration 198 mg/dL; Total Protein(PEP) Urine 5643 mg/24 h (<229)
== END 2018-07-18 14:03 | disposition home or self-care (01) | DRG 673 ==
LOC: ED 18:55 → ICU 20:23 → MEDTELE 07-15 12:44
PROVIDERS: ADMIT Internal Medicine; ATTEND Internal Medicine
PROC: 0JH63XZ Insertion of Tunneled Vascular Access Device into Chest Subcutaneous Tissue and Fascia, Percutaneous Approach (ICD-10-PCS; principal; 2018-07-16)
PROC: 05HM33Z Insertion of Infusion Device into Right Internal Jugular Vein, Percutaneous Approach (ICD-10-PCS; 2018-07-16)
PROC: B513ZZA Fluoroscopy of Right Jugular Veins, Guidance (ICD-10-PCS; 2018-07-16)
PROC: 5A1D70Z Performance of Urinary Filtration, Intermittent, Less than 6 Hours Per Day (ICD-10-PCS; 2018-07-17)
DX: I12.0 Hypertensive chronic kidney disease with stage 5 chronic kidney disease or end stage renal disease (principal); J81.0 Acute pulmonary edema; N18.6 End stage renal disease; I21.A1 Myocardial infarction type 2; A41.9 Sepsis, unspecified organism; N17.9 Acute kidney failure, unspecified; E87.2 Acidosis; T82.7XXA Infection and inflammatory reaction due to other cardiac and vascular devices, implants and grafts, initial encounter; F41.9 Anxiety disorder, unspecified; R40.2412 Glasgow coma scale score 13-15, at arrival to emergency department; D63.1 Anemia in chronic kidney disease; N13.9 Obstructive and reflux uropathy, unspecified; K80.20 Calculus of gallbladder without cholecystitis without obstruction; I16.0 Hypertensive urgency; N31.9 Neuromuscular dysfunction of bladder, unspecified; N31.2 Flaccid neuropathic bladder, not elsewhere classified; Z79.82 Long term (current) use of aspirin; Y84.1 Kidney dialysis as the cause of abnormal reaction of the patient, or of later complication, without mention of misadventure at the time of the procedure; Y92.239 Unspecified place in hospital as the place of occurrence of the external cause
CPT/HCPCS: 36415; 36558; 71045; 71046; 74176; 76700; 76937; 77001; 80048; 80053; 80076; 81003; 81015; 82043; 82306; 82330; 82570; 82575; 82595; 82668; 83516; 83520; 83540; 83550; 83605; 83615; 83735; 83880; 83883; 83970; 84100; 84153; 84154; 84155; 84156; 84165; 84166; 84439; 84443; 84484; 85025; 85027; 85610; 85730; 86038; 86140; 86141; 86255; 86256; 86334; 86480; 86704; 86705; 86706; 86803; 86850; 86900; 86901; 87040; 87086; 87340; 87641; 93005; 93306; 93970; 99156; 99157; 99285; A9270-GY; C1750; G0103; J0360; J0690; J0885; J1642; J1644; J2060; J2250; J3010; J3490

== ENCOUNTER 2018-08-01 16:45 | Inpatient (IN) | payer MEDICARE, OTHER ==
[2018-08-01 17:36] LABS: ABS Basophils 0.1 10^3/ul (0-0.2); ABS Eosinophils 0.2 10^3/ul (0-0.6); ABS Lymphocytes 1.1 10^3/ul (1.0-4.8); ABS Monocytes 0.8 10^3/ul (0-0.8); ABS Neutrophils 4.3 10^3/ul (1.5-7.7); ABS Nucleated RBC 0 10^3/ul; Eosinophil % 2.5 %; Hematocrit 28 % (42-52); Hemoglobin 9.4 g/dl (14.0-18.0); Lymphocyte % 17.5 %; Mean Corpuscular HGB Conc 34 g/dl (31-36); Mean Corpuscular Hemoglobin 30 pg (27-31); Mean Corpuscular Volume 89 fL (80-94); Mean Platelet Volume 6.9 fL (7.4-10.4); Nucleated Red Blood Cells % 0.1; Platelet Count 376 10^3/ul (150-450); Red Blood Count 3.16 10^6/ul (4.00-5.40); Red Cell Distribution Width 15 % (10.5-15); White Blood Count 6.5 10^3/ul (3.5-10.8)
--- NOTE | 2018-08-01 17:52 | ED ---
Palpitations / Dysrhythmia - HPI Summary HPI Summary: A 68 y/o male presents to [facility] with a chief complaint of irregular heart rate since about 15:45 08/01/18, onset several hr after completing dialysis today. He knew his heart rate due to his apple watch readings "shooting up to the 140s then went back down to 70s and then back up to the 80s or 90s". He claims his BP was 160/80. At triage he rated his pain as 0/10. The pt has two ways to check his BP at home. His Panasonic cuff read BP 162/80 and pulse of 72. When using the Panasonic cuff again his pulse was up to 120s with the same BP. He also reports that his cardio system said that it detected an irregular heartbeat after taking his BP. The patient was admitted to [facility] on 07/13/18-07/18 for acute on chronic renal failure with hypertensive urgency. He was dialyzed during this admission via Permcath, and was treated for sepsis, transient bacteremia with no definite source. He does not have a fistula or graft. He was dialyzed in 2013 for a short time and was able to be maintained off dialysis until this recent admission 06/2018, and he has been on 3x/week outpt dialysis His troponin peaked 07/13/18 at 0.38, and discharge summary for that admission called this a NSTEMI, although pt was unaware of that dx. The patient denies any WISDOM, CP, fever or dizziness but reports palpitations. He reports that his dry weight stays around 79.3. The patient reports that things went well before and after dialysis today claiming his entering weight was 79.35kg and his leaving weight was 79.2kg. The patient has some swelling in his legs. He claims that he went home and fell asleep when his right anterior chest Permcath dialysis catheter slid over and was caught under his arm and he "adjusted it". The patient has a neurogenic bladder, pt believes due to prostate issues, and pt has been self catheterizing for urine since 2013. He states he still produces a good urine output and he was DC'd on Bumex. The patient reports that he waited for 1.5 hours for his , Christiana, to get home to drive him to the hospital. Pt and his do not recall pt ever having atrial fibrillation, and pt is not on anticoagulation. Vital signs in the room: HR 143, BP 150/107, O2 Sat 97. - History of Current Complaint Chief Complaint: EDDysrhythmPalp Hx Obtained From: Patient, Family/Process Lead - Christiana Onset/Duration: Sudden Onset, Lasting Hours, Still Present Timing: Constant Severity Initially: Mild Severity Currently: Mild Character: Irregular Aggravating: Nothing Alleviating: Nothing Associated Signs & Symptoms: Negative - Allergy/Home Medications Allergies/Adverse Reactions: Allergies Allergy/AdvReac Type Severity Reaction Status Date / Time No Known Allergies Allergy Verified 07/13/18 19:02 PMH/Surg Hx/FS Hx/Imm Hx Previously Healthy: No Endocrine/Hematology History: Reports: Hx Anemia - on Epogen with dialysis Denies: Hx Anticoagulant Therapy Cardiovascular History: Reports: Hx Hypertension, Other Cardiovascular Problems/ Disorders - elevated troponins on 06/2018 admission, global hypokinesis on ECHO Denies: Hx Pacemaker/ICD Respiratory History: Reports: Hx Pleural Effusion Denies: Other Respiratory Problems/Disorders History: Reports: Hx Acute Renal Failure, Hx Dialysis - via Permcath since , Other Problems/Disorders - self cath at home, due to neurogenic bladder since 2013 Denies: Hx Benign Prostatic Hyperplasia, Hx Kidney Infection, Hx Kidney Stones Sensory History: Reports: Hx Contacts or Glasses Denies: Hx Cataracts, Hx Eye Injury, Hx Eye Prosthesis, Hx Glaucoma, Hx Legally Blind, Hx Macular Degeneration, Hx Vision Problem, Hx Deafness, Hx Hearing Aid, Hx Hearing Problem, Other Sensory Impairments Opthamlomology History: Reports: Hx Contacts or Glasses Denies: Hx Cataracts, Hx Eye Injury, Hx Eye Prosthesis, Hx Glaucoma, Hx Legally Blind, Hx Macular Degeneration, Hx Vision Problem, Other Sensory Impairments Psychiatric History: Reports: Hx Anxiety Denies: Hx Panic Disorder - Surgical History Surgery Procedure, Year, and Place: tonsillectomy Infectious Disease History: No Infectious Disease History: Denies: Traveled Outside the [place] in Last 30 Days - Family History Known Family History: Positive: Other - negative: kidney disease - Social History Lives: With Family Alcohol Use: None Substance Use Type: Reports: None Hx Tobacco Use: No Smoking Status (MU): Never Smoked Tobacco Have You Smoked in the Last Year: No Review of Systems Negative: Fever Positive: Palpitations. Negative: Chest Pain Respiratory: Negative Gastrointestinal: Negative Genitourinary: Other - continues self catheterization for urine Positive: no symptoms reported Musculoskeletal: Negative Skin: Negative Neurological: Negative - Dizziness Negative: Headache Psychological: Normal All Other Systems Reviewed And Are Negative: Yes Physical Exam - Summary Physical Exam Summary: Appearance: Well-appearing, no pain distress, well-nourished Skin: Warm, color reflects adequate perfusion, dry, perm cath in right anterior chest sutured in place, dry and intact Head: Normal Head/Face inspection, atraumatic Eyes: Conjunctiva clear ENT: Normal inspection Neck: Supple, no nodes, no JVD Respiratory: Lungs clear, normal breath sounds, no respiratory distress Cardio: Rapid irregularly irregular rhythm, afib on monitor, No murmur, pulses normal, brisk capillary refill Abdomen: Soft, nontender Bowel sounds: Present Musculoskeletal: Strength Intact/ROM intact, no calf tenderness, 1+ edema. Psychological: Normal Neuro: Alert, muscle tone normal, no focal deficit Triage Information Reviewed: Yes Vital Signs On Initial Exam: Initial Vitals Temp Pulse Resp BP Pulse Ox 97.9 F 118 20 159/80 100 08/01/18 16:48 08/01/18 16:48 08/01/18 16:48 08/01/18 16:48 08/01/18 16:48 Vital Signs Reviewed: Yes Diagnostics - Vital Signs Vital Signs Temp Pulse Resp BP Pulse Ox 08/01/18 16:48 97.9 F 118 20 159/80 100 - Laboratory Lab Results: Lab Results 08/01/18 Range/Units 17:16 WBC 6.5 (3.5-10.8) 10^3/ul RBC 3.16 L (4.00-5.40) 10^6/ul Hgb 9.4 L (14.0-18.0) g/dl Hct 28 L (42-52) % MCV 89 (80-94) fL MCH 30 (27-31) pg MCHC 34 (31-36) g/dl RDW 15 (10.5-15) % Plt Count 376 (150-450) 10^3/ul MPV 6.9 L (7.4-10.4) fL Neut % (Auto) 66.2 % Lymph % (Auto) 17.5 % [place]cdonough % (Auto) 12.5 % Eos % (Auto) 2.5 % Baso % (Auto) 1.3 % Absolute Neuts (auto) 4.3 (1.5-7.7) 10^3/ul Absolute Lymphs (auto) 1.1 (1.0-4.8) 10^3/ul Absolute Monos (auto) 0.8 (0-0.8) 10^3/ul Absolute Eos (auto) 0.2 (0-0.6) 10^3/ul Absolute Basos (auto) 0.1 (0-0.2) 10^3/ul Absolute Nucleated RBC 0 10^3/ul Nucleated RBC % 0.1 Result Diagrams: 08/02/18 05:26 08/05/18 05:57 Lab Statement: Any lab studies that have been ordered have been reviewed, and results considered in the medical decision making process. - Radiology CXR Radiology Interpretation Completed By: ED Physician Summary of Radiographic Findings: Catheter is in the proper location, otherwise NAD. Pending official radiology report. - EKG 16:54 Cardiac Rate: Other Rate - atrial fibrillation at 136 bpm EKG Rhythm: Atrial Fibrillation ST Segment: Non-Specific Ectopy: None EKG Comparison: Other - compared with EKG 07/14/18, pt is now in afib with RVR, was in SR. Summary of EKG Findings: Atrial fibrillation at 136 bpm with nl IVCT, left axis (-31), nonspecific ST-T, no acute changes, compared with EKG done 07/14/18, pt now in Afib. Re-Evaluation - Re-Evaluation First Eval Re-Evaluation Time: 20:35 Change: Unchanged Comment: Discussed plan to admit and control afib rate, with the pt and patient' s . Second Eval Re-Evaluation Time: 20:00 Change: Unchanged Comment: Discussed results and plan with patient and his . Course/Dx - Course Course Of Treatment: A 68 y/o male hx ESRD on HD via Permcath right anterior chest, recent bacteremia, presents to [facility] with a chief complaint of irregular heart rate since about 15:45 08/01/18 several hours after dailysis today, which is new onset afib with RVR on EKG. He also c/o his dialysis Permcath being "moved" by him when he went to fall asleep. Care was discussed with Dr. Pickard who knows pt well. He advised blood cultures x 2 through the Permcath and Vancomycin 1gm IV, given pt's recent hx of bacteremia, and possible dislodging of the catheter by pt, and he recommends discussion with surgery regarding the catheter location/placement. A CXR which was discussed with Dr. Howe, surgery , showed good placement of the cath and NAD (pending official radiology report) . Troponin 0.03 at 17:16. The patient's EKG at 16:54 showed atrial fibrillation at 136 bpm. Pt was given metoprolol 5mg IV, with no significant change in rate, and then started on cardizem bolus and cardizem drip, and given vancomycin 1gm IV empirically. Anticoagulation/cardioversion per hospitalists/cardiology. Case discussed with Dr. Moreno, hospitalist, who accepted the patient for admission. The patient and are agreeable with this plan. - Diagnoses Provider Diagnoses: ESRD on hemodialysis, New onset atrial fibrillation, Atrial fibrillation with RVR - Physician Notifications Discussed Care Of Patient With: Connor Pickard Time Discussed With Above Provider: 18:15 Instructed by Provider To: Other - Discussed case with Dr. Pickard, recommends blood cultures, Vancomycin 1gm empirically, confirm catheter placement, usual treatment for new onset afib - Critical Care Time Critical Care Time: 30-74 min - 30 mins Discharge - Sign-Out/Discharge Documenting (check all that apply): Patient Departure - admit - Discharge Plan Condition: Stable Disposition: ADMITTED TO [facility] - Billing Disposition and Condition Condition: STABLE Disposition: Admitted to [facility] - Attestation Statements Document Initiated by Berkleye: Yes Documenting Scribe: Kleber Stewart Provider For Whom Delmy is Documenting (Include Credential): Dr. Yola Li MD Scribe Attestation: Kleber Beavers scribed for Dr. Yola Li MD on 08/08/18 at 1337. Scribe Documentation Reviewed: Yes Provider Attestation: The documentation as recorded by the Kleber al accurately reflects the service I personally performed and the decisions made by me, Dr. Yola Li MD Status of Scribe Document: Viewed Consult Consult: At 18:[address] Howe, surgery. At 18:[address] Howe, surgery, who claims that the catheter is in the proper location. At 19:[address] Moreno, who accepted the patient for admission.
[2018-08-01 17:53] LABS: Albumin 3.9 g/dL (3.2-5.2); Albumin/Globulin Ratio 1.4 (1-3); BUN/Creatinine Ratio 6.6 (8-20); Calcium 9.7 mg/dL (8.6-10.3); EGFR Non-African American 10.6 (>60); Globulin 2.7 g/dL (2-4); Magnesium 2.3 mg/dL (1.9-2.7); Potassium 4.2 mmol/L (3.5-5.0); Total Bilirubin 0.3 mg/dL (0.2-1.0); Total Protein 6.6 g/dL (6.4-8.9)
[2018-08-01] MEDS ORDERED: Metoprolol Tartrate IV* 1 MG/ML 5 ML VIAL IV ONE (18:14)
[2018-08-01] MEDS ORDERED: Vancomycin(*) 1,000 MG in NS 0.9% 250 ML* 250 ML IVPB ONE (18:28)
[2018-08-01 18:44] LABS: INR 0.94 (0.77-1.02)
[2018-08-01] MEDS ORDERED: Ondansetron INJ* 2 MG/ML VIAL IV PRN (19:12)
[2018-08-01] MEDS ORDERED: Acetaminophen TAB* 325 MG PO PRN (19:12)
[2018-08-01] MEDS ORDERED: Diltiazem IV* 5 MG/ML 5 ML VIAL (for loading dose/IV Push) (25 MG) IV SLOW PU ONE (19:17)
[2018-08-01 20:39] LABS: Urine Appearance Clear; Urine Bacteria Absent (Absent); Urine Bilirubin Negative (Negative); Urine Blood 1+ (Negative); Urine Color Straw; Urine Glucose 2+(150 mg/dL) (Negative); Urine Ketones Negative (Negative); Urine Nitrite Negative (Negative); Urine Protein 2+(100 mg/dL) (Negative); Urine Red Blood Cell Trace(0-2/hpf) (Absent); Urine Specific Gravity 1.004 (1.010-1.030); Urine Urobilinogen Negative (Negative); Urine White Blood Cell Trace(0-5/hpf) (Absent)
[2018-08-01] MEDS: Diltiazem IV VIAL* 125 MG in NS 0.9% 100 ML* 100 ML IVPB ONE ×2 (21:14→21:54)
--- NOTE | 2018-08-01 21:47 | HP ---
CC: Dr. Hunter; Dr. Connor Pickard, Nephrology * ADMISSION HISTORY AND PHYSICAL: DATE OF ADMISSION: 08/01/18 PRIMARY CARE PROVIDER: Dr. Connor Hunter. ATTENDING FOR THIS ADMISSION: Dr. Veronika Braxton.* (DICTATED BY DAIN ALVARADO, DELROY) CHIEF COMPLAINT: Atrial fibrillation during dialysis today. HISTORY OF PRESENT ILLNESS: This is a very pleasant 68-year-old male patient who has had a couple of recent admissions, most notably he was discharged on for hypertensive urgency, possible bacteremia secondary to dialysis cath insertion, and also some demand ischemia with elevated troponin. The patient was home in his usual state of health. He went to dialysis today. He reports no issues during his dialysis time. He returned home and stated he had taken a nap. He does wear a Fitbit device and noted that he had some elevated heart rate earlier in the week, but was not persistently elevated. When the patient was going to nap today, he reports that his catheter in his right chest wall had slid under his armpit and he felt that it got caught. When he moved the catheter over, he felt some fluttering in his chest and then noted his heart rate on his Fitbit device was elevated in the 100s, approximately in the 140s and irregular. The patient waited for his to get home. He states he remained asymptomatic during that time. Denied any chest pain. No shortness of breath. No nausea, no vomiting, no diaphoresis, no abdominal pains, no dizziness, and no further constitutional complaints. PAST MEDICAL HISTORY: His past medical history as stated above is significant for: 1. End-stage renal disease. 2. Recent bacteremia. 3. Anemia of chronic disease. 4. Neurogenic bladder. 5. Hypertension. 6. Elevated troponins. PAST SURGICAL HISTORY: His past surgical history is significant for tonsillectomy as a child and right chest catheter insertion. HOME MEDICATIONS: 1. Amlodipine 10 mg p.o. daily. 2. Bicitra 30 mL p.o. t.i.d. 3. Renvela 800 mg p.o. t.i.d. 4. Metoprolol succinate XL 25 mg p.o. daily. 5. Rocaltrol 0.25 mcg p.o. b.i.d. 6. Bumex 2 mg p.o. daily. 7. Aspirin 81 mg daily. FAMILY HISTORY: Noncontributory. SOCIAL HISTORY: He is retired. Lives at home with his . Reports no smoking, no illicit drug use, and no alcohol use. His healthcare proxy is his , who is at bedside. REVIEW OF SYSTEMS: A 10-point review of systems is negative, except as otherwise noted in HPI. PHYSICAL EXAMINATION GENERAL: Reveals a well-appearing male in no acute distress. VITAL SIGNS: Currently, blood pressure 110/76, heart rate 114, respiratory rate between 12 and 16, O2 saturation 96% on room air with a temperature of 97.9. HEENT: The patient is atraumatic, normocephalic. PERRLA, with nonicteric sclerae. Oral mucosa is moist. Tongue is midline. NECK: Supple, nontender. No JVD noted. No carotid bruits auscultated. No thyromegaly appreciated. LUNGS: Clear bilaterally to auscultation with no wheezing, rhonchi, or rales. CARDIOVASCULAR: S1, S2 present. Rate is tachycardic. Rhythm is irregular. He remains in atrial fibrillation on telemetry. ABDOMEN: Soft, nontender, nondistended. Positive bowel sounds in all 4 quadrants. No organomegaly noted. : Deferred. MUSCULOSKELETAL: There is no clubbing and no cyanosis. He does have trace ankle edema, primarily on the medial portion of his ankles, nonpitting in nature. He has got full range of motion. NEUROLOGIC: He is grossly intact with no focal deficits. PSYCHIATRIC: He is pleasant, cooperative, and appropriate. DIAGNOSTIC STUDIES/LABORATORY DATA: WBC 6.5, RBC is 3.16, hemoglobin 9.4, hematocrit 28, platelets 376. Sodium 136, potassium 4.2, chloride 96. BUN 36, creatinine 5.43. GFR 10.6. Glucose 118. Lactic acid is 0.7. Calcium 9.7. Magnesium 2.3. Bilirubin 0.30. AST 21, ALT 15, alk phos 55. Troponin is negative at 0.03. Protein 6.6, albumin 3.9, globulin 2.7. D-dimer is 348. INR is 0.94. Chest x-ray is pending read. However, chest x-ray appears to be no acute cardiopulmonary process. Lung lopes are clear. The right chest dialysis catheter is in place. IMPRESSION: This is a very pleasant 68-year-old male patient with new onset atrial fibrillation, being admitted for same. DIAGNOSES: 1. New onset atrial fibrillation. The patient received 5 mg of IV Lopressor in the ER which was unsuccessful. He has since gotten 10 mg of Cardizem and I have started him on a Cardizem drip at 5 mg. His rate has slowed. He remains in atrial fibrillation. Our hope is that the patient will convert while he is on Cardizem drip. If the patient does not convert, we can consider talking with Cardiology in the morning to see if the patient is a candidate for cardioversion. In terms of anticoagulation, the patient reports that this just happened today. He does not appear to have been in atrial fibrillation for a long time. We will evaluate need for anticoagulation after discussing with Cardiology. 2. For his end-stage renal disease, he is currently on hemodialysis Sunday, , and Sunday at 5:30 in the morning. The patient was dialyzed today. He will redo on Sunday. If he is still hospitalized, he will have dialysis in the hospital. The patient will be continued on his Renvela, his Bicitra, and his Bumex. 3. For his history of hypertension, he will be continued on his metoprolol XL. Also, continue his diuretic. We will hold his amlodipine in light of the Cardizem drip. Blood pressure is currently stable. This may be restarted or adjusted as needed. The patient also takes a daily baby aspirin and this will be continued. 4. At this point, the patient is stable for admission to telemetry. He is hemodynamically stable. I do not feel that he warrants ICU admission at this time. Again, if the patient does not convert, we will consult Cardiology in the morning given his other comorbid conditions. The rest of the patient's course will be determined by further diagnostics, laboratories and any other input from other providers as warranted during this admission. 5. Diet: Heart-healthy diet as tolerated. 6. Fluid, electrolytes, and nutrition. The patient does not require IV fluids at this time. 7. DVT prophylaxis. The patient will be placed on heparin subcu. If the need arises for systemic anticoagulation, that will be addressed and heparin will be discontinued. DISPOSITION: Admit to Telemetry. This plan has been discussed with the attending Dr. Braxton who is in agreement with admission plan. TIME SPENT: 60 minutes. DAIN ALVARADO, DELROY [id number]/[facility] #: [id number] [facility]ALTH SYSTEMGus
--- NOTE | 2018-08-01 21:59 | PN ---
Progress Note - Progress Note Date of Service: 08/01/18 Note: 68 yr old with ESRD presents with rapid afib. On diltiazem drip. Discussed starting heparin drip for possible cardioversion in AM if he does not convert. Will consult Cardiology and make patient NPO after MDN. CHADSVASC score is two. Recommend follow up with cardiology regarding terminal block assembler anticoagulation if not requiring anticoagulation. Will hold starting coumadin at this time.
[2018-08-01] MEDS ORDERED: Heparin VIAL(*) 5000 UNITS/ML VIAL (FIVE THOUSAND) IV SCH (22:00)
[2018-08-01] MEDS: Heparin DRIP 25,000 UNITS(*) 25,000 UNITS/500 ML BAG IV SCH (23:06)
[2018-08-01] MEDS: Sevelamer TAB* 800 MG PO SCH (23:17)
[2018-08-01] MEDS: LORazepam TAB(*) 0.5 MG PO PRN (23:17)
[2018-08-01] MEDS: Docusate CAP* 100 MG PO SCH (23:17)
[2018-08-01] MEDS: Sodium Citrate/Citric Acid* 15 ML UDC PO SCH (23:17)
[2018-08-01] MEDS: Calcitriol CAP* 0.25 MCG PO SCH (23:45)
[2018-08-02] MEDS ORDERED: Diltiazem IV VIAL* 125 MG in NS 0.9% 100 ML* 100 ML IV SCH ×3 (03:00→15:00)
[2018-08-02 05:32] LABS: ABS Basophils 0.1 10^3/ul (0-0.2); ABS Eosinophils 0.1 10^3/ul (0-0.6); ABS Lymphocytes 1.3 10^3/ul (1.0-4.8); ABS Monocytes 0.8 10^3/ul (0-0.8); ABS Neutrophils 5.6 10^3/ul (1.5-7.7); ABS Nucleated RBC 0 10^3/ul; Eosinophil % 1.2 %; Hematocrit 25 % (42-52); Hemoglobin 8.4 g/dl (14.0-18.0); Lymphocyte % 16.9 %; Mean Corpuscular HGB Conc 33 g/dl (31-36); Mean Corpuscular Hemoglobin 30 pg (27-31); Mean Corpuscular Volume 89 fL (80-94); Mean Platelet Volume 6.7 fL (7.4-10.4); Nucleated Red Blood Cells % 0; Platelet Count 331 10^3/ul (150-450); Red Blood Count 2.83 10^6/ul (4.00-5.40); Red Cell Distribution Width 15 % (10.5-15)
[2018-08-02 05:49] LABS: Albumin 3.5 g/dL (3.2-5.2); Albumin/Globulin Ratio 1.4 (1-3); BUN/Creatinine Ratio 6.4 (8-20); Calcium 9.6 mg/dL (8.6-10.3); EGFR Non-African American 8.3 (>60); Globulin 2.5 g/dL (2-4); Potassium 4.3 mmol/L (3.5-5.0); Total Bilirubin 0.3 mg/dL (0.2-1.0)
[2018-08-02] MEDS ORDERED: amLODIPine TAB* 5 MG PO SCH (09:00)
[2018-08-02] MEDS ORDERED: Metoprolol Succinate XL TAB* 25 MG PO SCH (09:00)
[2018-08-02] MEDS ORDERED: Epoetin Alfa (NF) 10,000 UNITS/ML VIAL - ten thousand IV ONE (14:00)
[2018-08-02] MEDS ORDERED: Heparin DIALYSIS ONLY(*) 1,000 UNITS/ML VIAL DIALYSIS ONE (14:00)
--- NOTE | 2018-08-02 14:35 | PN ---
Subjective Date of Service: 08/02/18 Interval History: Patient seen and examined. No acute overnight events. Patient states he did not sleep well, remains in afib with no changes. Denies chest pain, no palpitations , no SOB, no fevers or chills. Objective Active Medications: Acetaminophen (Tylenol Tab*) 650 mg PO Q4H PRN PRN Reason: FEVER/PAIN Aspirin (Aspirin Ec Tab*) 81 mg PO DAILY [facility] Bumetanide (Bumex Tab*) 2 mg PO DAILY [facility] Calcitriol (Rocaltrol Cap*) 0.25 mcg PO BID [facility] Last Admin: 08/01/18 23:45 Dose: 0.25 mcg Citric Acid/Sodium Citrate (Bicitra*) 30 ml PO TID [facility] Last Admin: 08/01/18 23:17 Dose: 30 ml Docusate Sodium (Colace Cap*) 100 mg PO BID [facility] Last Admin: 08/01/18 23:17 Dose: 100 mg Heparin Sodium (Porcine) (Heparin Vial(*)) 0 units IV .PER PROTOCOL [facility] Heparin Sodium/Dextrose (Heparin Drip 25,000 Units(*)) 25,000 units in 500 mls @ 0 mls/hr IV PER RATE [facility]; Protocol Last Admin: 08/01/18 23:06 Dose: 23 mls/hr Diltiazem HCl 125 mg/ Sodium (Chloride) 125 mls @ 10 mls/hr IV .INITIAL RATE [facility]; Protocol Lorazepam (Ativan Tab(*)) 0.5 mg PO Q8HR PRN PRN Reason: ANXIETY Last Admin: 08/01/18 23:17 Dose: 0.5 mg Metoprolol Succinate (Toprol Xl Tab*) 25 mg PO DAILY [facility] Ondansetron HCl (Zofran Inj*) 4 mg IV Q4H PRN PRN Reason: NAUSEA/VOMITING Pharmacy Profile Note (Coumadin Per Pharmacy*) 1 note FOLLOW UP .PER PHARMACY PROTOC [facility]; Protocol Sevelamer Carbonate (Renvela Tab*) 800 mg PO TID [facility] Last Admin: 08/01/18 23:17 Dose: 800 mg Warfarin Sodium (Coumadin Tab(*)) 5 mg PO 1700 [facility]; Protocol Stop: 08/02/18 23:00 Vital Signs - 8 hr 08/02/18 08/02/18 08/02/18 07:08 07:44 08:00 Temperature 98.3 F Respiratory 16 16 Rate Blood Pressure 144/93 (mmHg) O2 Sat by Pulse 98 Oximetry 08/02/18 08/02/18 08/02/18 08:08 09:08 10:07 Temperature Respiratory Rate Blood Pressure 103/77 134/81 139/93 (mmHg) O2 Sat by Pulse Oximetry 08/02/18 08/02/18 08/02/18 11:08 12:09 13:09 Temperature Respiratory Rate Blood Pressure 132/83 163/93 127/81 (mmHg) O2 Sat by Pulse Oximetry Oxygen Devices in Use Now: None Appearance: alert, NAD Eyes: No Scleral Icterus, PERRLA Ears/Nose/Mouth/Throat: NL Teeth, Lips, Gums, Mucous Membranes Moist Neck: NL Appearance and Movements; NL JVP, Trachea Midline Respiratory: Symmetrical Chest Expansion and Respiratory Effort, Clear to Auscultation Cardiovascular: NL Sounds; No Murmurs; No JVD, RRR Extremities: No Clubbing, Cyanosis, - - trace ankle edema at baseline Skin: No Rash or Ulcers Neurological: Alert and Oriented x 3, NL Sensation, NL Gait Nutrition: Taking PO's Result Diagrams: 08/02/18 05:26 08/02/18 05:26 Additional Lab and Data: Lab Results 08/01/18 Range/Units 17:16 WBC 6.5 (3.5-10.8) 10^3/ul RBC 3.16 L (4.00-5.40) 10^6/ul Hgb 9.4 L (14.0-18.0) g/dl Hct 28 L (42-52) % MCV 89 (80-94) fL MCH 30 (27-31) pg MCHC 34 (31-36) g/dl RDW 15 (10.5-15) % Plt Count 376 (150-450) 10^3/ul MPV 6.9 L (7.4-10.4) fL Neut % (Auto) 66.2 % Lymph % (Auto) 17.5 % [place] % (Auto) 12.5 % Eos % (Auto) 2.5 % Baso % (Auto) 1.3 % Absolute Neuts (auto) 4.3 (1.5-7.7) 10^3/ul Absolute Lymphs (auto) 1.1 (1.0-4.8) 10^3/ul Absolute Monos (auto) 0.8 (0-0.8) 10^3/ul Absolute Eos (auto) 0.2 (0-0.6) 10^3/ul Absolute Basos (auto) 0.1 (0-0.2) 10^3/ul Absolute Nucleated RBC 0 10^3/ul Nucleated RBC % 0.1 Assess/Plan/Problems-Billing Assessment: This is a 68 year old male with history of ESRD on HD , , Sun, and HTN that presented to ED with complaint of tachycardia, found to be in afib with RVR. - Patient Problems (1) Atrial fibrillation with RVR Code(s): I48.91 - UNSPECIFIED ATRIAL FIBRILLATION SNOMED Code(s): 125622866520304 Comment: - On metoprolol, however no history of afib in the past - s/p cardizem bolus, drip at 5mg/hr, will increase to 10mg/hr, as rate is low 100's today - transition to oral cardizem tomorrow if feasible - Continue heparin drip, start coumadin bridge this evening for AC - Follow INRs - Discussed plan with Dr. Donovan, he will see in follow up as outpatient within a week of discharge; not a candidate for DAVID with cardioversion until he is fully anticoagulated (patient has been asymptomatic of this rhythm and may have been in PAF for some time) (2) Anemia Code(s): D64.9 - ANEMIA, UNSPECIFIED SNOMED Code(s): 769428714 Comment: - Chronic 2/2 ESRD - Epoetin in dialysis as per Dr. Pickard (3) Renal failure Onset Date: 06/27/14 Comment: - [facility] dialysis , , Sun - Had dialysis on 08/01 as an outpatient, per nephrology will dialyze today (4) Obstructive uropathy Code(s): N13.9 - OBSTRUCTIVE AND REFLUX UROPATHY, UNSPECIFIED SNOMED Code(s): 8205297 Comment: - Neurogenic bladder, continue self cath PRN (5) Elevated troponin Code(s): R74.8 - ABNORMAL LEVELS OF OTHER SERUM ENZYMES SNOMED Code(s): 465850193 Comment: - No chest pain, likely demand in the setting of ESRD and new afib - Trops flat, will not continue trending (6) Hypertension Code(s): I10 - ESSENTIAL (PRIMARY) HYPERTENSION SNOMED Code(s): 46419079 Comment: - Hold amlodipine while on cardizem drip - Continue BB if BP stable (7) DVT prophylaxis Code(s): CVY1180 - SNOMED Code(s): 935741068 Comment: - Heparin coumadin bridge (8) Full code status Code(s): Z78.9 - OTHER SPECIFIED HEALTH STATUS SNOMED Code(s): 105162180 Status and Disposition: Remain inpatient while titrating cardizem and initiating AC.
[2018-08-02] MEDS: Calcitriol CAP* 0.25 MCG PO SCH ×2 (16:13→20:13)
[2018-08-02] MEDS: Bumetanide TAB* 2 MG PO SCH (16:13)
[2018-08-02] MEDS: Docusate CAP* 100 MG PO SCH ×2 (16:13→20:13)
[2018-08-02] MEDS: Sevelamer TAB* 800 MG PO SCH ×2 (16:13→17:12)
[2018-08-02] MEDS: Sodium Citrate/Citric Acid* 15 ML UDC PO SCH ×2 (16:13→20:12)
[2018-08-02] MEDS: Aspirin EC TAB* 81 MG TAB.EC PO SCH (16:13)
[2018-08-02] MEDS ORDERED: Warfarin TAB(*) 5 MG PO SCH (17:00)
--- NOTE | 2018-08-02 18:11 | ECHO ---
Patient: MABLE YOUNGER [facility] Rec#: [id number] : 1950 Date: 08/02/2018 Age: 68y Height: 180 cm / 70.9 in Weight: 79.2 kg / 174.6 lbs Sex: M BSA: 2 Admit Date#: 08/01/2018 Type: Inpatient Referring: Jeny Alston Reading: Janessa Petersen MD Duty Officer: Aliza Renteria RN RDCS CC: Connor Hunter MD Transthoracic Echocardiogram Indication: New onset A. fib BP: 134/81 HR: 117 Rhythm: A-Fib Findings History: HTN, chronic anemia, ESRD. Technical Comments: The study quality is fair. Left Ventricle: The left ventricular chamber size is normal. Moderate concentric left ventricular hypertrophy is observed. There is global hypokinesis of the left ventricle with minor regional variation. There is mildly decreased left ventricular systolic function. The estimated ejection fraction is 45-50%. The assessment of diastolic function is non-diagnostic. Left Atrium: The left atrium is mildly dilated. Right Ventricle: The right ventricular chamber size and systolic function are within normal limits. Right Atrium: The right atrium is mildly dilated. Aortic Valve: The aortic valve is trileaflet. The aortic valve leaflets are mildly thickened. There is aortic annular calcification. There is mild to moderate aortic regurgitation. There is no evidence of aortic stenosis. Mitral Valve: The mitral valve leaflets are mildly thickened. There is mild to moderate mitral regurgitation. There is no evidence of mitral stenosis. Tricuspid Valve: The tricuspid valve leaflets are normal. There is mild tricuspid regurgitation. No pulmonary hypertension is noted. There is no tricuspid stenosis. Pulmonic Valve: The pulmonic valve appears normal. There is trace to mild pulmonic regurgitation. There is no pulmonic stenosis. Pericardium: There is no significant pericardial effusion. Aorta: There is no dilatation of the ascending aorta. There is no dilatation of the aortic arch. There is no dilation of the aortic root. Pulmonary Artery: The main pulmonary artery is not well visualized. Venous: The inferior vena cava appears normal in size. There is an approximate 50% respiratory change in the inferior vena cava dimension. Summary: There are no significant changes when compared to the previous study done on 07/14/2018, no overt significant changes noticed. Conclusions The left ventricular chamber size is normal. Moderate concentric left ventricular hypertrophy is observed. There is global hypokinesis of the left ventricle with minor regional variation. The estimated ejection fraction is 45-50%. The assessment of diastolic function is non-diagnostic. The left atrium is mildly dilated. The right atrium is mildly dilated. There is mild to moderate aortic regurgitation. There is mild to moderate mitral regurgitation. There is mild tricuspid regurgitation. No pulmonary hypertension is noted. There is trace to mild pulmonic regurgitation. Measurements Name Value Normal Range RVDdMajor (2D) 3.1 cm (2.2 - 4.4) RAd ISD 4CH 5.5 cm (3.4 - 4.9) RA (A4C)W 3.8 cm (2.9 - 4.6) IVSd (2D) 1.5 cm (0.6 - 1) LVPWd (2D) 1.6 cm (0.6 - 1) LVIDd (2D) 4.6 cm (3.6 - 5.4) LVIDs (2D) 3 cm - LV FS (2D) 35 % (25 - 45) Aortic Annulus 2.4 cm (1.4 - 2.6) Ao root diameter (2D) 3.1 cm (2.1 - 3.5) Ascending Ao 3.2 cm (2.1 - 3.4) Aortic arch 2.4 cm (1.8 - 3.4) LA dimension (AP) 2D 4.1 cm (2.3 - 3.8) LAd ISD 4CH 5.6 cm (2.9 - 5.3) LA ISD 4CH W 5.3 cm (2.5 - 4.5) Name Value Normal Range LA ESV BP (A/L) index 34.1 ml/m2 - Name Value Normal Range MV E-wave Vmax 1.2 m/sec - MV deceleration time 157 msec - LV septal e' Vmax 0.09 m/sec - LV lateral e' Vmax 0.17 m/sec - LV E:e' septal ratio 13.3 ratio - LV E:e' lateral ratio 7.1 ratio - Name Value Normal Range AV Vmax 1.5 m/sec - AV VTI 24.3 cm - AV peak gradient 9 mmHg - AV mean gradient 6 mmHg - LVOT Vmax 1.1 m/sec - LVOT VTI 17.6 cm - LVOT peak gradient 5 mmHg - LVOT mean gradient 3 mmHg - AR PHT 393 msec - GANGA Vmax 1.1 m/sec - Name Value Normal Range TR Vmax 2.3 m/sec - TR peak gradient 21 mmHg - RAP 8 mmHg - RVSP 29 mmHg - IVC diameter 2.1 cm - Name Value Normal Range PV Vmax 0.82 m/sec -
[2018-08-02] MEDS: Diltiazem CD CAP* 180 MG PO SCH (20:14)
[2018-08-02] MEDS: LORazepam TAB(*) 0.5 MG PO PRN (22:06)
[2018-08-02] MEDS: Heparin DRIP 25,000 UNITS(*) 25,000 UNITS/500 ML BAG IV SCH (23:07)
[2018-08-03] MEDS: Metoprolol Tartrate TAB* 25 MG PO SCH ×3 (04:20→21:01)
[2018-08-03 05:59] LABS: Activated Partial Thrombo Time 42.9 seconds (26.0-36.3); INR 1.02 (0.77-1.02)
[2018-08-03 06:01] LABS: EGFR Non-African American 9.6 (>60)
[2018-08-03] MEDS: Bumetanide TAB* 2 MG PO SCH (08:10)
[2018-08-03] MEDS: Diltiazem CD CAP* 180 MG PO SCH (08:10)
[2018-08-03] MEDS: Sodium Citrate/Citric Acid* 15 ML UDC PO SCH ×3 (08:10→21:01)
[2018-08-03] MEDS: Sevelamer TAB* 800 MG PO SCH ×3 (08:10→17:05)
[2018-08-03] MEDS: Docusate CAP* 100 MG PO SCH ×2 (08:10→21:02)
[2018-08-03] MEDS: Aspirin EC TAB* 81 MG TAB.EC PO SCH (08:11)
[2018-08-03] MEDS: Calcitriol CAP* 0.25 MCG PO SCH ×2 (08:12→21:01)
--- NOTE | 2018-08-03 10:22 | PN ---
Subjective Date of Service: 08/03/18 Interval History: Mr. Gould denies complaint today. He specifically denies chest pain or SOB. He further denies nausea or abdominal pain and is tolerating oral intake well. He has been ambulating independently on the unit throughout the day. Objective Active Medications: Acetaminophen (Tylenol Tab*) 650 mg PO Q4H PRN Aspirin (Aspirin Ec Tab*) 81 mg PO DAILY [facility] Bumetanide (Bumex Tab*) 2 mg PO DAILY [facility] Calcitriol (Rocaltrol Cap*) 0.25 mcg PO BID [facility] Citric Acid/Sodium Citrate (Bicitra*) 30 ml PO TID [facility] Diltiazem HCl (Cardizem Cd Cap*) 180 mg PO DAILY [facility] Docusate Sodium (Colace Cap*) 100 mg PO BID [facility] Heparin Sodium (Porcine) (Heparin Vial(*)) 0 units IV .PER PROTOCOL [facility] Heparin Sodium/Dextrose (Heparin Drip 25,000 Units(*)) 25,000 units in 500 mls @ 0 mls/hr IV PER RATE [facility]; Protocol Lorazepam (Ativan Tab(*)) 0.5 mg PO Q8HR PRN Metoprolol Tartrate (Lopressor Tab*) 25 mg PO BID [facility] Ondansetron HCl (Zofran Inj*) 4 mg IV Q4H PRN Pharmacy Profile Note (Coumadin Per Pharmacy*) 1 note FOLLOW UP .PER PHARMACY PROTOC [facility]; Protocol Sevelamer Carbonate (Renvela Tab*) 800 mg PO TID WITH MEALS [facility] Vital Signs: Temp Pulse Resp BP Pulse Ox 98.5 F 82 16 161/89 97 08/03/18 07:23 08/03/18 07:23 08/03/18 08:00 08/03/18 07:23 08/03/18 07:23 Oxygen Devices in Use Now: None Appearance: Male sitting up in chair in NAD Eyes: No Scleral Icterus Ears/Nose/Mouth/Throat: Mucous Membranes Moist Neck: Trachea Midline Respiratory: Symmetrical Chest Expansion and Respiratory Effort, Clear to Auscultation Cardiovascular: NL Sounds; No Murmurs; No JVD, No Edema Abdominal: NL Sounds; No Tenderness; No Distention Lymphatic: No Cervical Adenopathy Extremities: No Edema Skin: No Rash or Ulcers Neurological: Alert and Oriented x 3, NL Muscle Strength and Tone Nutrition: Taking PO's Result Diagrams: 08/02/18 05:26 08/03/18 05:24 Additional Lab and Data: . Microbiology and Other Data: . Assess/Plan/Problems-Billing Assessment: Mr. Gould is a 68 year old male with history of ESRD on HD T, , Sat, and HTN that presented to ED with complaint of tachycardia, found to be in afib with RVR. - Patient Problems (1) Atrial fibrillation with RVR Comment: - New onset - Converted to SR, continue oral cardizem - Continue heparin drip bridge, continue coumadin follow INRs. - Discussed plan with Dr. Donovan, he will see in follow up as outpatient within a week of discharge; not a candidate for DAVID with cardioversion until he is fully anticoagulated (patient has been asymptomatic of this rhythm and may have been in PAF for some time) (2) Renal failure Comment: - [facility] dialysis T, , Sat - Had dialysis on 08/01 as an outpatient, continue per routine (3) Elevated troponin Comment: - No chest pain, likely demand in the setting of ESRD and new afib (4) Hypertension Comment: - SBP 160-170s. - Continue newly started cardizem, continue metoprolol and resume amlodipine (5) Chronic anemia Comment: - Stable at baseline. - Continue epogen. (6) Metabolic acidosis Comment: - Continue bicitra (7) Obstructive uropathy Comment: - Neurogenic bladder, continue self cath PRN (8) DVT prophylaxis Comment: - Heparin coumadin bridge (9) Full code status Comment: Status and Disposition: Remain inpatient for heparin bridge to coumadin.
[2018-08-03] MEDS: amLODIPine TAB* 5 MG PO SCH (11:44)
[2018-08-03] MEDS ORDERED: Warfarin TAB(*) 5 MG PO ONE (17:00)
[2018-08-03] MEDS: LORazepam TAB(*) 0.5 MG PO PRN (19:22)
[2018-08-03] MEDS: Heparin DRIP 25,000 UNITS(*) 25,000 UNITS/500 ML BAG IV SCH (23:43)
[2018-08-04 06:09] LABS: Activated Partial Thrombo Time 51.9 seconds (26.0-36.3); INR 1.06 (0.77-1.02)
[2018-08-04] MEDS: Metoprolol Tartrate TAB* 25 MG PO SCH ×2 (08:24→21:13)
[2018-08-04] MEDS: Sevelamer TAB* 800 MG PO SCH ×3 (08:24→17:06)
[2018-08-04] MEDS: Diltiazem CD CAP* 180 MG PO SCH (08:24)
[2018-08-04] MEDS: Bumetanide TAB* 2 MG PO SCH (08:24)
[2018-08-04] MEDS: Calcitriol CAP* 0.25 MCG PO SCH ×2 (08:25→21:12)
[2018-08-04] MEDS: amLODIPine TAB* 5 MG PO SCH (08:25)
[2018-08-04] MEDS: Sodium Citrate/Citric Acid* 15 ML UDC PO SCH ×3 (08:25→21:14)
[2018-08-04] MEDS: Docusate CAP* 100 MG PO SCH ×2 (08:25→21:14)
[2018-08-04] MEDS: Aspirin EC TAB* 81 MG TAB.EC PO SCH (08:25)
--- NOTE | 2018-08-04 12:06 | PN ---
Subjective Date of Service: 08/04/18 Interval History: Mr. Gould denies complaint other than frustration at the fact that he needs to stay in the hospital for initiation of anticoagulation. Objective Active Medications: Acetaminophen (Tylenol Tab*) 650 mg PO Q4H PRN Amlodipine Besylate (Norvasc Tab*) 10 mg PO DAILY [facility] Aspirin (Aspirin Ec Tab*) 81 mg PO DAILY [facility] Bumetanide (Bumex Tab*) 2 mg PO DAILY [facility] Calcitriol (Rocaltrol Cap*) 0.25 mcg PO BID [facility] Citric Acid/Sodium Citrate (Bicitra*) 30 ml PO TID [facility] Diltiazem HCl (Cardizem Cd Cap*) 180 mg PO DAILY [facility] Docusate Sodium (Colace Cap*) 100 mg PO BID [facility] Heparin Sodium (Porcine) (Heparin Vial(*)) 0 units IV .PER PROTOCOL [facility] Heparin Sodium/Dextrose (Heparin Drip 25,000 Units(*)) 25,000 units in 500 mls @ 0 mls/hr IV PER RATE [facility]; Protocol Lorazepam (Ativan Tab(*)) 0.5 mg PO Q8HR PRN Metoprolol Tartrate (Lopressor Tab*) 25 mg PO BID [facility] Ondansetron HCl (Zofran Inj*) 4 mg IV Q4H PRN Pharmacy Profile Note (Coumadin Per Pharmacy*) 1 note FOLLOW UP .PER PHARMACY PROTOC [facility]; Protocol Sevelamer Carbonate (Renvela Tab*) 800 mg PO TID WITH MEALS [facility] Vital Signs: Temp Pulse Resp BP Pulse Ox 98.5 F 68 16 143/76 100 08/04/18 07:47 08/04/18 07:47 08/04/18 08:00 08/04/18 07:47 08/04/18 07:47 Oxygen Devices in Use Now: None Appearance: Male ambulating in hallway in [facility] Eyes: No Scleral Icterus Ears/Nose/Mouth/Throat: Mucous Membranes Moist Neck: Trachea Midline Respiratory: Symmetrical Chest Expansion and Respiratory Effort, Clear to Auscultation Cardiovascular: NL Sounds; No Murmurs; No JVD, No Edema Abdominal: NL Sounds; No Tenderness; No Distention Extremities: No Edema Skin: No Rash or Ulcers Neurological: Alert and Oriented x 3, NL Muscle Strength and Tone Result Diagrams: 08/02/18 05:26 01/05/19 05:24 Additional Lab and Data: . Microbiology and Other Data: . Assess/Plan/Problems-Billing Assessment: Mr. Gould is a 68 year old male with history of ESRD on HD , , Sun, and HTN that presented to ED with complaint of tachycardia, found to be in afib with RVR. - Patient Problems (1) Atrial fibrillation with RVR Comment: - New onset - Converted to SR, continue oral cardizem - Continue heparin drip bridge, continue coumadin follow INRs. - Discussed plan with Dr. Donovan, he will see in follow up as outpatient within a week of discharge; not a candidate for DAVID with cardioversion until he is fully anticoagulated (patient has been asymptomatic of this rhythm and may have been in PAF for some time) (2) Renal failure Comment: - [facility] dialysis , , Sun - Had dialysis on 08/01 as an outpatient, continue per routine (3) Elevated troponin Comment: - No chest pain, likely demand in the setting of ESRD and new afib (4) Hypertension Comment: - SBP 140s. - Continue newly started cardizem, continue metoprolol and amlodipine (5) Chronic anemia Comment: - Stable at baseline. - Continue epogen. (6) Metabolic acidosis Comment: - Continue bicitra (7) Obstructive uropathy Comment: - Neurogenic bladder, continue self cath PRN (8) DVT prophylaxis Comment: - Heparin coumadin bridge (9) Full code status Comment: Status and Disposition: Remain inpatient for heparin bridge to coumadin.
[2018-08-04] MEDS ORDERED: Warfarin TAB(*) 7.5 MG PO ONE (17:00)
[2018-08-04] MEDS: Heparin DRIP 25,000 UNITS(*) 25,000 UNITS/500 ML BAG IV SCH (21:13)
[2018-08-04] MEDS: LORazepam TAB(*) 0.5 MG PO PRN (21:13)
[2018-08-05 06:28] LABS: Activated Partial Thrombo Time 78.5 seconds (26.0-36.3); INR 1.68 (0.77-1.02)
[2018-08-05] MEDS: Aspirin EC TAB* 81 MG TAB.EC PO SCH (08:06)
[2018-08-05] MEDS: Bumetanide TAB* 2 MG PO SCH (08:06)
[2018-08-05] MEDS: Sevelamer TAB* 800 MG PO SCH ×3 (08:06→16:42)
[2018-08-05] MEDS: Metoprolol Tartrate TAB* 25 MG PO SCH ×2 (08:06→20:45)
[2018-08-05] MEDS: amLODIPine TAB* 5 MG PO SCH (08:06)
[2018-08-05] MEDS: Docusate CAP* 100 MG PO SCH ×2 (08:06→20:45)
[2018-08-05] MEDS: Diltiazem CD CAP* 180 MG PO SCH (08:06)
[2018-08-05] MEDS: Calcitriol CAP* 0.25 MCG PO SCH ×2 (08:07→20:44)
[2018-08-05] MEDS: Sodium Citrate/Citric Acid* 15 ML UDC PO SCH ×3 (08:07→20:45)
[2018-08-05] MEDS ORDERED: Epoetin Alfa (NF) 10,000 UNITS/ML VIAL - ten thousand IV ONE (13:00)
[2018-08-05] MEDS ORDERED: Heparin DIALYSIS ONLY(*) 1,000 UNITS/ML VIAL DIALYSIS ONE (13:00)
--- NOTE | 2018-08-05 16:23 | PN ---
Subjective Date of Service: 08/05/18 Interval History: Mr. Gould denies any complaint today. He is happy that his INR is rising now and hopeful for discharge soon. Objective Active Medications: Acetaminophen (Tylenol Tab*) 650 mg PO Q4H PRN Amlodipine Besylate (Norvasc Tab*) 10 mg PO DAILY [facility] Aspirin (Aspirin Ec Tab*) 81 mg PO DAILY [facility] Bumetanide (Bumex Tab*) 2 mg PO DAILY [facility] Calcitriol (Rocaltrol Cap*) 0.25 mcg PO BID [facility] Citric Acid/Sodium Citrate (Bicitra*) 30 ml PO TID [facility] Diltiazem HCl (Cardizem Cd Cap*) 180 mg PO DAILY [facility] Docusate Sodium (Colace Cap*) 100 mg PO BID [facility] Heparin Sodium (Porcine) (Heparin Vial(*)) 0 units IV .PER PROTOCOL [facility] Heparin Sodium/Dextrose (Heparin Drip 25,000 Units(*)) 25,000 units in 500 mls @ 0 mls/hr IV PER RATE [facility]; Protocol Lorazepam (Ativan Tab(*)) 0.5 mg PO Q8HR PRN Metoprolol Tartrate (Lopressor Tab*) 25 mg PO BID [facility] Ondansetron HCl (Zofran Inj*) 4 mg IV Q4H PRN Pharmacy Profile Note (Coumadin Per Pharmacy*) 1 note FOLLOW UP .PER PHARMACY PROTOC [facility]; Protocol Sevelamer Carbonate (Renvela Tab*) 800 mg PO TID WITH MEALS [facility] Warfarin Sodium (Coumadin Tab(*)) 3 mg PO ONCE@1700 ONE Vital Signs: Temp Pulse Resp BP Pulse Ox 98.3 F 68 16 146/82 100 08/05/18 16:14 08/05/18 16:14 08/05/18 16:14 08/05/18 16:14 08/05/18 16:14 Oxygen Devices in Use Now: None Appearance: Male ambulating in hallways in [facility] Eyes: No Scleral Icterus Ears/Nose/Mouth/Throat: Mucous Membranes Moist Neck: Trachea Midline Respiratory: Symmetrical Chest Expansion and Respiratory Effort, Clear to Auscultation Cardiovascular: NL Sounds; No Murmurs; No JVD, No Edema Abdominal: NL Sounds; No Tenderness; No Distention Extremities: No Edema Skin: No Rash or Ulcers Neurological: Alert and Oriented x 3, NL Muscle Strength and Tone Nutrition: Taking PO's Result Diagrams: 08/02/18 05:26 08/05/18 05:57 Additional Lab and Data: . Microbiology and Other Data: . Assess/Plan/Problems-Billing Assessment: Mr. Gould is a 68 year old male with history of ESRD on HD T, Th, Sat, and HTN that presented to ED with complaint of tachycardia, found to be in afib with RVR. - Patient Problems (1) Atrial fibrillation with RVR Comment: - New onset - Converted to SR, continue oral cardizem - Continue heparin drip bridge, continue coumadin follow INRs. - Discussed plan with Dr. Donovan, he will see in follow up as outpatient within a week of discharge; not a candidate for DAVID with cardioversion until he is fully anticoagulated (patient has been asymptomatic of this rhythm and may have been in PAF for some time) (2) Renal failure Comment: - [facility] dialysis T, Th, Sat - Had dialysis on 08/01 as an outpatient, continue per routine (3) Elevated troponin Comment: - No chest pain, likely demand in the setting of ESRD and new afib (4) Hypertension Comment: - SBP 140s. - Continue newly started cardizem, continue metoprolol and amlodipine (5) Chronic anemia Comment: - Stable at baseline. - Continue epogen. (6) Metabolic acidosis Comment: - Continue bicitra (7) Obstructive uropathy Comment: - Neurogenic bladder, continue self cath PRN (8) DVT prophylaxis Comment: - Heparin coumadin bridge (9) Full code status Comment: Status and Disposition: Remain inpatient for heparin bridge to coumadin.
[2018-08-05] MEDS ORDERED: Warfarin TAB(*) 3 MG PO ONE (17:00)
[2018-08-05] MEDS: Heparin DRIP 25,000 UNITS(*) 25,000 UNITS/500 ML BAG IV SCH (20:50)
[2018-08-06] MEDS: LORazepam TAB(*) 0.5 MG PO PRN (01:20)
[2018-08-06 06:56] LABS: Activated Partial Thrombo Time 60.1 seconds (26.0-36.3); INR 2.79 (0.77-1.02)
[2018-08-06] MEDS: Bumetanide TAB* 2 MG PO SCH (08:20)
[2018-08-06] MEDS: amLODIPine TAB* 5 MG PO SCH (08:20)
[2018-08-06] MEDS: Docusate CAP* 100 MG PO SCH (08:20)
[2018-08-06] MEDS: Metoprolol Tartrate TAB* 25 MG PO SCH (08:20)
[2018-08-06] MEDS: Aspirin EC TAB* 81 MG TAB.EC PO SCH (08:20)
[2018-08-06] MEDS: Sevelamer TAB* 800 MG PO SCH (08:20)
[2018-08-06] MEDS: Diltiazem CD CAP* 180 MG PO SCH (08:20)
[2018-08-06] MEDS: Calcitriol CAP* 0.25 MCG PO SCH (08:24)
[2018-08-06] MEDS: Sodium Citrate/Citric Acid* 15 ML UDC PO SCH (08:28)
[2018-08-06] MEDS ORDERED: Sodium Citrate/Citric Acid* 15 ML UDC ONE (08:31)
[2018-08-06 11:16] VITALS: BP 146/76
[2018-08-06] MEDS ORDERED: Warfarin TAB(*) 1 MG PO ONE (17:00)
--- NOTE | 2018-08-06 21:02 | DS ---
CC: Dr. Connor Hunter; Dr. Milad Prasad * DISCHARGE SUMMARY: DATE OF ADMISSION: 08/01/18 DATE OF DISCHARGE: 08/06/18 PRIMARY CARE PROVIDER: Dr. Connor Hunter. SOFTWOOD FALLER: Dr. Milad Prasad. ATTENDING FOR THIS ADMISSION: Dr. Roya Avila.* (DICTATED BY DAIN ALVARADO NP) HOSPITAL COURSE: Please refer to admitting H and P dated 08/01/18 for details, but in short, this is a very pleasant 68-year-old gentleman with a history of renal failure, on hemodialysis who noted while he was at home by checking his Fitbit device that he had some tachycardia after having dialysis that morning. The patient stated his heart rate seemed irregular to him. It was in the rate of 140s. He waited for his to come home and came to the emergency department for evaluation. Upon evaluation in the ER, he was found to be in atrial fibrillation with rapid ventricular response. He received a bolus of Cardizem and was started on Cardizem drip. At that time, had a discussion with Cardiology regarding anticoagulation and possibility of cardioversion and it was determined that the patient should be anticoagulated and then cardioversion be planned for a later date given that it is unclear whether the patient had prior episodes of AFib and at that point would be at higher risk for cardioversion if he had been in AFib longer than 24 hours. Because the patient is on dialysis, his only option for anticoagulation will be Coumadin. He will be started on heparin, Coumadin bridge. He also had an echocardiogram of the heart on 08/02/18. His echo at that time showed EF of 45% to 50%, mild dilatation of the left atrium and the right atrium. There was some global hypokinesis of the left ventricle, moderate concentric left ventricular hypertrophy was observed, mild to moderate aortic regurg, mild to moderate mitral regurg, mild tricuspid regurg, no pulmonary hypertension noted and there was trace mild pulmonic regurgitation. The patient was already on a beta- rhonda; however, when he finally converted on the Cardizem drip, he was started on long-acting Cardizem, which seemed to give him decent rate control. His beta-rhonda was actually increased as well to 2 times a day. Blood pressure was maintained and controlled. The patient had daily INRs recorded. His INR on day of discharge was 2.79, showing him to be in therapeutic range. The patient was readied for discharge on the morning of 08/06/18. The patient had mildly elevated troponin levels; however, he did not have any chest pain and given his renal dysfunction and his tachycardic rate with his atrial fibrillation, his troponin was likely bumped secondary to his tachycardia. TSH was normal as were the rest of the patient's labs that were all within his baseline. DISCHARGE DIAGNOSES: 1. New onset atrial fibrillation. 2. History of renal failure, on hemodialysis. 3. History of hypertension, controlled. 4. History of obstructive uropathy with neurogenic bladder. 5. Chronic anemia secondary to chronic renal dysfunction, stable. 6. Persistent metabolic acidosis secondary to renal dysfunction. 7. Mildly elevated troponin. DISCHARGE MEDICATIONS: Include: 1. Amlodipine 10 mg daily. 2. Bicitra 30 mL 3 times a day. 3. Renvela 800 mg p.o. 3 times a day. 4. Rocaltrol 0.25 mcg p.o. 2 times a day. 5. Bumex 2 mg p.o. daily. 6. Aspirin 81 mg daily. 7. Warfarin 2 mg p.o. daily. 8. Metoprolol tartrate 25 mg p.o. b.i.d. 9. Ativan 0.5 mg p.o. b.i.d. as needed. 10. Cardizem CD 180 mg p.o. daily. REVIEW OF SYSTEMS: On the day of discharge, the patient denies any fever, fatigue, or chills. No chest pain, no shortness of breath. No nausea, no vomiting. No urinary complaints and no further constitutional complaints. PHYSICAL EXAM: Vital signs today are blood pressure 146/76, heart rate 67, regular sinus rhythm, respiratory rate 16, O2 saturation 99% on room air, temperature of 98.3. HEENT: The patient is atraumatic, normocephalic. PERRLA with nonicteric sclerae. Oral mucosa is moist. Tongue is midline. Neck is supple, nontender. No JVD noted. No carotid bruits auscultated. Cardiovascular: The patient has a positive S1, S2. Rate and rhythm are currently regular. No murmurs, gallops, or rubs noted. Lungs are clear bilaterally to auscultation with no wheezing, rhonchi, or rales. Chest: Right chest port noted for dialysis. Dressing is clean, dry, and intact. Skin: There is no erythema or drainage noted at the site. Abdomen is soft, nontender , nondistended. Positive bowel sounds in all 4 quadrants. is deferred. Musculoskeletal: There is no clubbing, no cyanosis, and no edema. He has +2 distal pulses palpable. Full range of motion. Steady gait. Gross motor and sensation intact. Neurologic: Grossly intact with no focal deficits. Psychiatric: He is cooperative and appropriate. LABORATORY DATA: WBCs 8.0, RBCs 2.83, hemoglobin 8.4, hematocrit 25, platelets 331,000. Sodium 139, potassium 4.3, chloride 102, CO2 of 30, BUN 75, creatinine 8.83, GFR 6.0, glucose 104. Lactic acid 0.7. Magnesium 2.3. Bilirubin 0.30, AST 18, ALT 14, alk phos 48. Protein 6.0, albumin 3.5, globulin 2.5. TSH 2.87. Troponins were 0.03, 0.08, 0.06. DISPOSITION: The patient will be discharged to home in stable condition. All questions were answered. DISCHARGE FOLLOWUP: The patient was instructed to follow up with Dr. Hunter, his primary care provider as needed. He was also instructed to follow up with either Dr. Prasad or Dr. Petersen of Cardiology in the office to continue to reassess his need for cardioversion in the future. TIME SPENT: Approximately 35 minutes interfacing with the patient and coordinating discharge plan. DAIN ALVARADO NP [id number]/CPS #: [id number] [place]
== END 2018-08-06 12:57 | disposition home or self-care (01) | DRG 308 ==
LOC: ED 16:45 → MEDTELE 19:12
PROVIDERS: ADMIT Pediatrics; ATTEND Internal Medicine
PROC: 5A1D70Z Performance of Urinary Filtration, Intermittent, Less than 6 Hours Per Day (ICD-10-PCS; principal; 2018-08-02)
PROC: 5A1D70Z Performance of Urinary Filtration, Intermittent, Less than 6 Hours Per Day (ICD-10-PCS; 2018-08-05)
DX: I48.91 Unspecified atrial fibrillation (principal); N18.6 End stage renal disease; I12.0 Hypertensive chronic kidney disease with stage 5 chronic kidney disease or end stage renal disease; E87.2 Acidosis; N31.9 Neuromuscular dysfunction of bladder, unspecified; N13.9 Obstructive and reflux uropathy, unspecified; D63.1 Anemia in chronic kidney disease; I08.3 Combined rheumatic disorders of mitral, aortic and tricuspid valves; R74.8 Abnormal levels of other serum enzymes; Z79.82 Long term (current) use of aspirin; Z99.2 Dependence on renal dialysis; Z79.899 Other long term (current) drug therapy
CPT/HCPCS: 36415; 71045; 80053; 81003; 81015; 82565; 83605; 83735; 84443; 84484; 84520; 85025; 85379; 85610; 85730; 87040; 87086; 93005; 93306; 99283; A9270-GY; J0885; J1644; J3370; J3490

== ENCOUNTER 2018-08-17 17:12 | Inpatient (IN) | payer MEDICARE, OTHER ==
[2018-08-17] MEDS ORDERED: Acetaminophen TAB* 325 MG PO ONE ×3 (17:39→18:24)
--- NOTE | 2018-08-17 17:39 | ED ---
HPI Febrile Illness - HPI Summary HPI Summary: This patient is a 68 year old M presenting to [facility] accompanied by his with a chief complaint of a fever of 100.7 after dialysis roughly three hours ago. Patient denies CP, SOB, cough, pain at chest catheter, and changes in urine. reports a history of A-fib with previous infections. Fever upon triage at 102.3. - History of Current Complaint Chief Complaint: EDFever Time Seen by Provider: 08/17/18 17:25 Hx Obtained From: Patient, Family/Wardrobe Custodian Onset/Duration: Started Hours Ago Timing: Constant Temperature: 100.7 F Initial Severity: Mild Current Severity: Moderate Pain Intensity: 0 Associated Signs and Symptoms: Other: - negative CP, SOB, cough, valentine at chest catheter, and urine changes - Additional Pertinent History Primary Care Physician: SUN - Allergy/Home Medications Allergies/Adverse Reactions: Allergies Allergy/AdvReac Type Severity Reaction Status Date / Time No Known Allergies Allergy Verified 08/17/18 17:19 PMH/Surg Hx/FS Hx/Imm Hx Endocrine/Hematology History: Reports: Hx Anemia - on Epogen with dialysis Denies: Hx Anticoagulant Therapy Cardiovascular History: Reports: Hx Hypertension, Other Cardiovascular Problems/ Disorders - elevated troponins on 06/2018 admission, global hypokinesis on ECHO Denies: Hx Pacemaker/ICD Respiratory History: Reports: Hx Pleural Effusion Denies: Other Respiratory Problems/Disorders History: Reports: Hx Acute Renal Failure, Hx Dialysis - via Permcath since , Other Problems/Disorders - self cath at home, due to neurogenic bladder since 2013 Denies: Hx Benign Prostatic Hyperplasia, Hx Chronic Renal Failure, Hx Kidney Infection, Hx Kidney Stones Sensory History: Reports: Hx Contacts or Glasses Denies: Hx Cataracts, Hx Eye Injury, Hx Eye Prosthesis, Hx Glaucoma, Hx Legally Blind, Hx Macular Degeneration, Hx Vision Problem, Hx Deafness, Hx Hearing Aid, Hx Hearing Problem, Other Sensory Impairments Opthamlomology History: Reports: Hx Contacts or Glasses Denies: Hx Cataracts, Hx Eye Injury, Hx Eye Prosthesis, Hx Glaucoma, Hx Legally Blind, Hx Macular Degeneration, Hx Vision Problem, Other Sensory Impairments Psychiatric History: Reports: Hx Anxiety Denies: Hx Panic Disorder - Surgical History Surgery Procedure, Year, and Place: tonsillectomy Infectious Disease History: No Infectious Disease History: Denies: Traveled Outside the [place] in Last 30 Days - Family History Known Family History: Negative: Renal Disease - Social History Alcohol Use: None Substance Use Type: Reports: None Hx Tobacco Use: No Smoking Status (MU): Never Smoked Tobacco Have You Smoked in the Last Year: No Review of Systems Positive: Fever Negative: Chest Pain Negative: Shortness Of Breath, Cough Positive: no symptoms reported All Other Systems Reviewed And Are Negative: Yes Physical Exam - Summary Physical Exam Summary: Appearance: ill-appearing, no pain distress Skin: warm, dry, reflects adequate perfusion Head/face: normal Eyes: EOMI, JAYLENE ENT: normal Neck: supple, non-tender Respiratory: CTA, breath sounds present Cardiovascular: RRR, pulses symmetrical Abdomen: non-tender, soft Musculoskeletal: strength/ROM intact, Chest Catheter present with mild erythema at insertion site Neuro: normal, sensory motor intact, A&Ox3 Triage Information Reviewed: Yes Vital Signs On Initial Exam: Initial Vitals Temp Pulse Resp BP Pulse Ox 102.3 F 90 16 164/78 98 08/17/18 17:14 08/17/18 17:14 08/17/18 17:14 08/17/18 17:14 08/17/18 17:14 Vital Signs Reviewed: Yes Diagnostics - Vital Signs Vital Signs Temp Pulse Resp BP Pulse Ox 08/17/18 17:14 102.3 F 90 16 164/78 98 - Laboratory Result Diagrams: 08/17/18 18:12 08/17/18 18:12 Lab Statement: Any lab studies that have been ordered have been reviewed, and results considered in the medical decision making process. - Radiology CXR Radiology Interpretation Completed By: ED Physician Summary of Radiographic Findings: No acute disease. - EKG 1743 Cardiac Rate: NL - 95 BPM EKG Rhythm: Sinus Rhythm Summary of EKG Findings: No acute disease. Course/Dx - Course Course Of Treatment: 68 year old M presenting with a fever of 100.7 after dialysis roughly three hours ago. Patient denies CP, SOB, cough, pain at chest catheter, and changes in urine. reports a history of A-fib with previous infections. Fever upon triage at 102.3. Site of chest catheter has mild erythema. Patient is gien 650mg of Tylenol PO, 975mg of Tylenol PO, and 325mg of Tylenol PO. Bloodwork reveals WBC of 19.3. IV abx are ordered immediately after lab results. UA is WNL. An EKG reveals no acute disease. Flu swabs are negative. CXR reveals no acute disease. Discussed case with Dr. Pickard, patient 's knifer up, and informed of plan to admit. Dr. Moreno, hospitalist agrees to admit. - Febrile Illness Differential Diagnoses: Cellulitis, Sepsis - Diagnoses Provider Diagnoses: Sepsis, End stage renal disease, Catheter-related bloodstream infection - Provider Notifications Discussed Care Of Patient With: Veronika Moreno - hospitalist Time Discussed With Above Provider: 19:25 Instructed by Provider To: Admit As Inpatient Discharge - Sign-Out/Discharge Documenting (check all that apply): Patient Departure - admit - Discharge Plan Condition: Stable Disposition: ADMITTED TO [facility] Referrals: Connor Hunter MD [Primary Care Provider] - - Billing Disposition and Condition Condition: STABLE Disposition: Admitted to [facility] - Attestation Statements Document Initiated by Scribe: Yes Documenting Scribe: Talisha Tolliver Provider For Whom Berkleye is Documenting (Include Credential): Kyle Denis MD Scribe Attestation: Talisha Beavers, scribed for Kyle Denis MD on 08/17/18 at 1959. Scribe Documentation Reviewed: Yes Provider Attestation: The documentation as recorded by the Talisha al accurately reflects the service I personally performed and the decisions made by Kyle herrera MD Status of Scribe Document: Viewed
[2018-08-17] MEDS ORDERED: NS 0.9% 250 ML* 250 ML IV ONE (18:20)
[2018-08-17 18:29] LABS: ABS Basophils 0.1 10^3/ul (0-0.2); ABS Eosinophils 0.1 10^3/ul (0-0.6); ABS Lymphocytes 0.4 10^3/ul (1.0-4.8); ABS Monocytes 1.3 10^3/ul (0-0.8); ABS Neutrophils 17.4 10^3/ul (1.5-7.7); ABS Nucleated RBC 0 10^3/ul; Eosinophil % 0.4 %; Hematocrit 28 % (42-52); Mean Corpuscular HGB Conc 32 g/dl (31-36); Mean Corpuscular Hemoglobin 28 pg (27-31); Mean Corpuscular Volume 86 fL (80-94); Nucleated Red Blood Cells % 0.1; Platelet Count 311 10^3/ul (150-450); Red Blood Count 3.27 10^6/ul (4.00-5.40); Red Cell Distribution Width 15 % (10.5-15); White Blood Count 19.3 10^3/ul (3.5-10.8)
[2018-08-17 18:37] LABS: Influenza A Molecular NEGATIVE (Negative); Influenza B Molecular NEGATIVE (Negative)
[2018-08-17 18:39] LABS: Activated Partial Thrombo Time 26.4 seconds (26.0-36.3); INR 1.25 (0.77-1.02)
[2018-08-17 18:50] LABS: Albumin 4.2 g/dL (3.2-5.2); Albumin/Globulin Ratio 1.4 (1-3); Calcium 9.4 mg/dL (8.6-10.3); EGFR African American 13.3 (>60); Potassium 3.9 mmol/L (3.5-5.0); Total Bilirubin 0.4 mg/dL (0.2-1.0); Total Protein 7.2 g/dL (6.4-8.9)
[2018-08-17] MEDS ORDERED: Piperacillin/Tazobac ADVAN(*) 3.375 GM in NS 0.9% 100 ML* 100 ML IVPB ONE (18:54)
[2018-08-17] MEDS ORDERED: Vancomycin(*) 1,000 MG VIAL IVPB SCH (19:00)
[2018-08-17 19:14] LABS: Urine Appearance Clear; Urine Color Yellow
[2018-08-17 19:15] LABS: Urine Ketones NEG (Negative); Urine Protein 3+(>=500 mg/dL) (Negative); Urine Specific Gravity 1.005 (1.010-1.030); Urine Urobilinogen NEG (Negative)
[2018-08-17 19:16] LABS: Urine Blood NEG (Negative)
[2018-08-17 19:17] LABS: Urine Bilirubin Negative (Negative); Urine Glucose Negative (Negative); Urine Nitrite Negative (Negative)
[2018-08-17 19:22] LABS: Urine Bacteria Absent (Absent); Urine Red Blood Cell Trace(0-2/hpf) (Absent); Urine Squamous Epithelial Cell Present (Absent); Urine White Blood Cell 1+(6-10/hpf) (Absent)
[2018-08-17] MEDS ORDERED: Acetaminophen TAB* 325 MG PO PRN (20:12)
[2018-08-17] MEDS ORDERED: Vancomycin(*) 1,000 MG in NS 0.9% 250 ML* 250 ML IVPB ONE (20:17)
[2018-08-17] MEDS ORDERED: Ondansetron INJ* 2 MG/ML VIAL IV PRN (20:17)
[2018-08-17] MEDS ORDERED: NS 0.9% 250 ML* 250 ML ONE (20:28)
[2018-08-17] MEDS ORDERED: NS 0.9% 1000 ML* 1,000 ML IV SCH (20:30)
[2018-08-17] MEDS ORDERED: LORazepam TAB(*) 0.5 MG PO PRN (20:31)
[2018-08-17] MEDS ORDERED: Vancomycin per Pharmacy* NOTE FOLLOW UP PRN (20:37)
[2018-08-17] MEDS ORDERED: Vancomycin(*) 1,250 MG IV x ONCE IVPB ONE ×2 (21:00)
[2018-08-17] MEDS ORDERED: Cefepime 1 GM in Dextrose(*) 1 GM/50 ML BAG IV SCH (21:00)
[2018-08-17 21:04] LABS: C Reactive Protein 3.04 mg/L (<8.01)
[2018-08-17] MEDS ORDERED: Heparin DRIP 25,000 UNITS(*) 25,000 UNITS/500 ML BAG ONE (21:14)
[2018-08-17] MEDS ORDERED: Heparin VIAL(*) 5000 UNITS/ML VIAL (FIVE THOUSAND) ONE ×2 (21:14→21:28)
[2018-08-17] MEDS: Heparin VIAL(*) 5000 UNITS/ML VIAL (FIVE THOUSAND) IV SCH (21:23)
[2018-08-17] MEDS: Heparin DRIP 25,000 UNITS(*) 25,000 UNITS/500 ML BAG IV SCH (21:31)
[2018-08-17 21:32] LABS: Erythrocyte Sed Rate 48 mm/Hr (0-40)
[2018-08-17] MEDS: Metoprolol Tartrate TAB* 25 MG PO SCH (23:51)
[2018-08-17] MEDS: Calcitriol CAP* 0.25 MCG PO SCH (23:51)
[2018-08-17] MEDS: Sevelamer TAB* 800 MG PO SCH (23:51)
[2018-08-17] MEDS: Sodium Citrate/Citric Acid* 15 ML UDC PO SCH (23:58)
--- NOTE | 2018-08-18 00:13 | HP ---
CC: Dr. Hunter; Dr. Chapman; Dr. Pickard * HISTORY AND PHYSICAL: DATE OF ADMISSION: 08/17/18 PRIMARY CARE PROVIDER: Dr. Hunter. CONSULTING OPERATIONS MGR: Dr. Chapman. MY ATTENDING PHYSICIAN WHILE IN THE HOSPITAL: Dr. Veronika Braxton * (report dictated by Ghulam Duque NP). CHIEF COMPLAINT: 1. Chills. 2. Fever. 3. Not feeling well. HISTORY OF PRESENT ILLNESS: Mr. Gould is a 68-year-old male patient, who recently was admitted here in the hospital for atrial fibrillation. He was discharged about 10 days ago. He comes in today stating that he went to dialysis today, he was feeling well. When he got home though, he noted that he was having chills; he was sweaty; he was shaking; he was rigoring; he just could not get warm. His checked his temperature; she noted that it was over 100. They were concerned and took him immediately to the hospital. In discussing with him, he denies having any open skin lesions, denies having any erythema, denies having any abdominal pain. There has been no nausea, vomiting , or diarrhea. He denied having any URI symptoms. He denied having any flu- like symptoms. He says that the only thing he has noticed is he has had some crust at his catheter site, but it is not tender. He noticed a little bit of discharge there, but it did not look purulent or did not look like pus to him. He came into the ED and it was noted that he had a fever of 102. His white count was 19,000. There was concern for possible sepsis with an unclear source. So, we were asked to evaluate for admission. PAST MEDICAL HISTORY: Significant for: 1. Atrial fibrillation. 2. End-stage renal disease, on hemodialysis via tunneled catheter. 3. Neurogenic bladder. He does self-cath. 4. Chronic anemia. 5. Metabolic acidosis secondary to renal dysfunction. 6. Hypertension. PAST SURGICAL HISTORY: 1. He has had tonsillectomy. 2. Tunneled catheter placement for dialysis. HOME MEDICATIONS: We are going to clarify this list, but according to last discharge summary includes: 1. Amlodipine 10 mg daily. 2. Warfarin 2 mg daily. 3. Bicitra 30 cc t.i.d. 4. Renvela 800 mg p.o. t.i.d. 5. Metoprolol 25 mg p.o. b.i.d. 6. Diltiazem 180 mg daily. 7. Calcitriol 0.25 mcg p.o. b.i.d. 8. Bumex 2 mg p.o. daily. 9. Aspirin 81 mg daily. 10. Ativan 0.5 mg p.o. b.i.d. ALLERGIES TO MEDICATIONS: Include no known drug allergies. FAMILY HISTORY: He says neither of his parents had kidney trouble; both are now . SOCIAL HISTORY: He says that he does not smoke. He does not drink alcohol. Surrogate decision maker is his . REVIEW OF SYSTEMS: There is a documented fever here. He denies having any significant weight change. There was no double vision. He denied having any ear discharge. There is no rhinorrhea. There is no sore throat. No thyroid enlargement. He denied having any chest pain. There was no orthopnea. There was no nocturnal dyspnea. There was no abdominal pain. There was no nausea, no vomiting. There was no dysuria, no frequency, no seizure, no loss of consciousness, no pruritus, and no skin ulcerations. Review of 14 systems completed, all others negative. PHYSICAL EXAMINATION GENERAL: At this time, Mr. Gould is a 68-year-old male patient. He is sitting in the ED stretcher. He does not appear to be in any acute distress. He appears to be well nourished and well developed. VITAL SIGNS: Blood pressure 149/71 with a pulse of 86, respirations were 18, O2 sat 94%, temperature 102.3. HEENT: Head: Atraumatic and normocephalic. Eyes: EOMs intact. Sclerae anicteric and not pale. Throat: Oral mucosa appears to be dry. No oropharyngeal erythema. NECK: Supple. LUNGS: Clear to auscultation bilaterally. There were no wheezes, rales, or rhonchi. HEART: Sounds S1, S2. Regular rate and rhythm. No murmurs, rubs, or gallops. ABDOMEN: Soft. It was flat. It was nontender. Bowel sounds were present. EXTREMITIES: He had 2+ edema in the lower extremities. He had 5/5 strength. NEUROLOGICAL: He is awake. He is alert. He is oriented x3. Speech was clear. He had no gross obvious focal deficits. SKIN: Grossly intact. He does have a small area of erythema near the tunneled catheter. It was not tender. There did not appear to be any discharge. LABORATORY DATA/DIAGNOSTIC STUDIES: He did have an EKG obtained today, which showed a normal sinus rhythm. He did have ST depression in lead I and lead II and V6 as well. No elevation was noted. No T-wave inversions. He did appear to have LVH. When we look at the previous EKG, that ST depression pattern is similar with exception of V6. He had an echo recently done on the 08/02/18, which showed EF of 45 to 50%. Chest x-ray obtained today. When I reviewed it, I did not appreciate any acute infiltrate. He does have what appears to be pulmonary vascular congestion. On review of the previous chest x-ray, to me, it appears to be similar. No pleural effusions were noted. No infiltrates. Old medical records were reviewed. ASSESSMENT AND PLAN: Mr. Gould is a 68-year-old male patient coming into the ED today with complaints of chills and fever. On evaluation, found to have evidence of sepsis with unclear source. He will be admitted under inpatient status for: 1. Sepsis. Etiology of this is unclear. I am concerned for a line infection. I have asked the ED staff to send off a culture from the line and 2 peripheral cultures to follow. He does have some slight erythema there, although it is nontender. He has had flu swab, which is negative. His urine to me appears to be unimpressive. He does have 1 white cell, 1 leukocyte esterase, but no bacteria. I will wait for culture. I think he needs to be put on vancomycin and cefepime. I am not going to give him the 30 cc/kg bolus as his blood pressure when he came in was 164/81. He is not showing any signs of end-stage organ dysfunction, and he says he is feeling better. He did receive fluid in the ED. Certainly, if he does have any changes or the blood pressure trends down, then obviously we will bolus him as needed, but I think we can hold off at this point. 2. History of end-stage renal disease. We will touch base with Nephrology tomorrow and dialyze him as indicated. He does not appear to have any need for emergent dialysis currently. 3. Hypertension. Continue meds as prescribed. 4. Atrial fibrillation. Continue meds as prescribed. I do note that his INR is subtherapeutic. I am going to put him on a heparin drip as I am concerned that this is a line infection, and if that is the case, then he may need further procedure, so I think heparin in the interim and then converting him back to Coumadin when it is appropriate. 5. DVT prophylaxis: Again, he will be placed on heparin drip. 6. Code status: Full code. 7. Fluids, electrolytes, and nutrition: He can have a renal diet. TIME SPENT: Time spent on the admission was 60 minutes, greater than half the time spent [id number] with the patient, other half time spent going over the plan of care with the patient and implementing plan of care. I did discuss the plan of care with my attending, Dr. Braxton and she is in agreement. GHULAM DUQUE, DELROY [id number]/CPS #: [id number]
[2018-08-18 06:24] LABS: ABS Basophils 0.1 10^3/ul (0-0.2); ABS Eosinophils 0.1 10^3/ul (0-0.6); ABS Lymphocytes 1.5 10^3/ul (1.0-4.8); ABS Monocytes 1.3 10^3/ul (0-0.8); ABS Neutrophils 15.2 10^3/ul (1.5-7.7); ABS Nucleated RBC 0 10^3/ul; Eosinophil % 0.6 %; Hematocrit 25 % (42-52); Hemoglobin 7.9 g/dl (14.0-18.0); Lymphocyte % 8.3 %; Mean Corpuscular HGB Conc 32 g/dl (31-36); Mean Corpuscular Hemoglobin 27 pg (27-31); Mean Corpuscular Volume 85 fL (80-94); Mean Platelet Volume 7.1 fL (7.4-10.4); Nucleated Red Blood Cells % 0; Platelet Count 265 10^3/ul (150-450); Red Blood Count 2.91 10^6/ul (4.00-5.40); Red Cell Distribution Width 15 % (10.5-15); White Blood Count 18.2 10^3/ul (3.5-10.8)
[2018-08-18 06:40] LABS: Activated Partial Thrombo Time 89.1 seconds (26.0-36.3); INR 1.51 (0.77-1.02)
[2018-08-18 06:46] LABS: BUN/Creatinine Ratio 8.5 (8-20); EGFR African American 10.5 (>60); EGFR Non-African American 8.7 (>60); Potassium 3.8 mmol/L (3.5-5.0)
[2018-08-18] MEDS ORDERED: Vancomycin Random Level* NOTE FOLLOW UP ONE (09:00)
[2018-08-18] MEDS: Cefepime 1 GM in Dextrose(*) 1 GM/50 ML BAG IV SCH (09:13)
[2018-08-18] MEDS: Calcitriol CAP* 0.25 MCG PO SCH ×3 (09:13→21:08)
[2018-08-18] MEDS: Sodium Citrate/Citric Acid* 15 ML UDC PO SCH ×3 (09:15→20:59)
[2018-08-18] MEDS: Diltiazem CD CAP* 180 MG PO SCH (09:15)
[2018-08-18] MEDS: Aspirin EC TAB* 81 MG TAB.EC PO SCH (09:15)
[2018-08-18] MEDS: amLODIPine TAB* 5 MG PO SCH (09:15)
[2018-08-18] MEDS: Sevelamer TAB* 800 MG PO SCH ×3 (09:15→20:59)
[2018-08-18] MEDS: Bumetanide TAB* 2 MG PO SCH (09:15)
[2018-08-18] MEDS: Metoprolol Tartrate TAB* 25 MG PO SCH ×2 (09:16→20:59)
--- NOTE | 2018-08-18 13:40 | PN ---
Subjective Date of Service: 08/18/18 Objective Active Medications: Acetaminophen (Tylenol Tab*) 650 mg PO Q6H PRN PRN Reason: FEVER/PAIN Amlodipine Besylate (Norvasc Tab*) 10 mg PO DAILY [facility] Last Admin: 08/18/18 09:15 Dose: 10 mg Aspirin (Aspirin Ec Tab*) 81 mg PO DAILY [facility] Last Admin: 08/18/18 09:15 Dose: 81 mg Bumetanide (Bumex Tab*) 2 mg PO DAILY [facility] Last Admin: 08/18/18 09:15 Dose: 2 mg Calcitriol (Rocaltrol Cap*) 0.25 mcg PO BID [facility] Last Admin: 08/18/18 09:13 Dose: Not Given Citric Acid/Sodium Citrate (Bicitra*) 30 ml PO TID [facility] Last Admin: 08/18/18 12:56 Dose: 30 ml Diltiazem HCl (Cardizem Cd Cap*) 180 mg PO DAILY [facility] Last Admin: 08/18/18 09:15 Dose: 180 mg Heparin Sodium (Porcine) (Heparin Vial(*)) 0 units IV .PER PROTOCOL [facility] Last Admin: 08/17/18 21:23 Dose: 5,450 units Heparin Sodium/Dextrose (Heparin Drip 25,000 Units(*)) 25,000 units in 500 mls @ 0 mls/hr IV PER RATE [facility]; Protocol Last Admin: 08/17/18 21:31 Dose: 23 mls/hr Cefepime HCl (Maxipime 1 Gm In Dextrose Duplex (*)) 1 gm in 50 mls @ 100 mls/ hr IV Q24H [facility] Last Admin: 08/18/18 09:13 Dose: 100 mls/hr Vancomycin HCl / Sodium (Chloride) 250 mls @ 166.667 mls/hr IVPB .CONTINUE PROTOCOL [facility]; Protocol Lorazepam (Ativan Tab(*)) 0.5 mg PO BID PRN PRN Reason: ANXIETY Metoprolol Tartrate (Lopressor Tab*) 25 mg PO BID [facility] Last Admin: 08/18/18 09:16 Dose: 25 mg Ondansetron HCl (Zofran Inj*) 4 mg IV Q6H PRN PRN Reason: NAUSEA Pharmacy Consult (Vancomycin Per Pharmacy*) 1 note FOLLOW UP . PRN PRN Reason: PER PROTOCOL Sevelamer Carbonate (Renvela Tab*) 800 mg PO TID [facility] Last Admin: 08/18/18 12:56 Dose: 800 mg Vital Signs - 8 hr 08/18/18 08/18/18 08/18/18 06:00 08:59 09:50 Temperature 98.4 F 99.0 F Pulse Rate 70 73 Respiratory 18 16 16 Rate Blood Pressure 140/69 145/79 (mmHg) O2 Sat by Pulse 99 99 Oximetry Oxygen Devices in Use Now: None Eyes: No Scleral Icterus Ears/Nose/Mouth/Throat: Clear Oropharnyx Neck: NL Appearance and Movements; NL JVP Respiratory: Symmetrical Chest Expansion and Respiratory Effort, Clear to Auscultation Cardiovascular: NL Sounds; No Murmurs; No JVD, RRR Abdominal: NL Sounds; No Tenderness; No Distention Extremities: No Edema, - - 1+ Edema bilaterally Skin: No Rash or Ulcers Neurological: Alert and Oriented x 3 Lines/Tubes/Other Access: Clean, Dry and Intact Central Line Result Diagrams: 08/18/18 05:52 08/18/18 05:52 Microbiology and Other Data: Microbiology 08/17/18 17:43 Influenza Types A,B Antigen - Final Nasopharyngeal Specimen received for Influenza A/B Molecular testing Assess/Plan/Problems-Billing Assessment: - Patient Problems (1) Sepsis Current Visit: Yes Status: Acute Comment: Continue Vanco and Cefepime Responding, clinically no fever and no further rigors Walking around the floor and reports feeling much better today Urine and blood cultures pending Possible Line infection If Line infection, will need exchange/replacement and can consider line holiday for 24-48h if warranted based on cultures,organism and dialysis needs (2) ESRD (end stage renal disease) Current Visit: Yes Status: Acute Code(s): N18.6 - END STAGE RENAL DISEASE SNOMED Code(s): 65443925 Comment: Dialysed 08/17/18 full run no problems during dialysis No evidence of toxemia or volume overload (3) Metabolic acidosis Current Visit: Yes Status: Acute Code(s): E87.2 - ACIDOSIS SNOMED Code(s) : 62419072 Comment: Continue Bicitra (4) A-fib Current Visit: Yes Status: Acute Code(s): I48.91 - UNSPECIFIED ATRIAL FIBRILLATION SNOMED Code(s): 34874225 Comment: Continue rate control meds Holding Coumadin that was sub therapeutic and currently on heparin drip if needs another line (5) Hypertension Current Visit: Yes Status: Acute Code(s): I10 - ESSENTIAL (PRIMARY) HYPERTENSION SNOMED Code(s): 66540095 Comment: continue current management
[2018-08-18] MEDS ORDERED: Vancomycin(*) 500 MG in NS 0.9% 250 ML* 250 ML IVPB ONE (14:30)
--- NOTE | 2018-08-18 18:55 | CONS ---
NEPHROLOGY CONSULTATION NOTE: DATE OF CONSULT: 08/17/18 REQUESTING PROVIDER: Ghulam Duque NP SERVICE: [facility] Nephrology. REASON FOR CONSULT: ESRD dialysis management and sepsis. HISTORY OF PRESENT ILLNESS: A 68-year-old male with history of atrial fibrillation, end-stage renal disease on hemodialysis which was initiated recently via a tunneled dialysis catheter, comes in to [facility] with complaints of fevers, chills, had a fever of 102 in the ER. His white count was note d to be 19,000. The patient reports rigors at home. The patient was dialyzed earlier this morning o n Sunday and completed his full run with no problems. The patient reports that his symptoms starte d 3 hours after coming back from dialysis. The patient was initiated on dialysis less than a month a go with a tunneled dialysis catheter. Etiology of his renal failure was thought to be secondary to r eflux and chronic scarring from reflux and the patient was also noted to have nephrotic syndrome. [facility] patient has a history of neurogenic bladder and self-caths himself for many years. PAST MEDICAL HISTORY: 1. Atrial fibrillation. 2. End-stage renal disease, likely on hemodialysis via a tunneled dialysis catheter. 3. Neurogenic bladder. 4. Chronic anemia. 5. Metabolic acidosis secondary to renal dysfunction. 6. Hypertension. PAST SURGICAL HISTORY: 1. Tonsillectomy. 2. Tunneled catheter placement for dialysis. HOME MEDICATIONS: Prior to admission: 1. Amlodipine 10 mg. 2. Aspirin 81 mg daily. 3. Warfarin 2.5 mg p.o. daily. 4. Bicitra 30 mL p.o. t.i.d. 5. Sevelamer 800 mg p.o. t.i.d. 6. Sertraline 25 mg p.o. daily. 7. Metoprolol 25 mg p.o. b.i.d. 8. Cardizem 180 mg p.o. daily. 9. Bumex 2 mg p.o. daily. FAMILY HISTORY: No known history of kidney disease in the family. SOCIAL HISTORY: Does not smoke, does not drink alcohol. REVIEW OF SYSTEMS: As described in the HPI, with fevers, rigors, feeling poorly. No shortness of dylan ath, no chest pain. Other 14-point review of systems noted to be negative. PHYSICAL EXAM: Vitals: Blood pressure 149/71, pulse 86, respirations 18, O2 sat is 94%, temp 102.3. HEENT: NC/AT. Heart: S1, S2 present, regular at time of exam, tachycardic at time of exam. Abdo men: Soft, nontender. No rebound, no guarding. Lungs: Clear to auscultation bilaterally. No whee zes, rales, or rhonchi. Neck: Supple. No JVD at time of exam. Extremities: 2+ edema in lower ext remities, 5/5 strength. Neurologic: Awake, alert, oriented. Speech clear. No focal deficits. Ski n: Slight erythema around the tunneled catheter, nontender, no discharge. DIAGNOSTIC STUDIES/LAB DATA: WBC 19.3, hemoglobin 9, hematocrit 28, platelets noted to be 311,000. Sodium 135, potassium 3.9, chloride 96, CO2 of 29, BUN 42, creatinine 5.24, glucose noted to be 119. The patient continues to make urine and continues to self-cath himself. ASSESSMENT AND PLAN: 1. Sepsis, etiology not fully certain; however, line infection is certainly possible in the setting of his dialysis catheter. Recommended the inpatient team to panculture with blood cultures and urine and we will check cultures from the catheter site, culture any drainage around, and also get periphe ral cultures. Chest x-ray to be performed. Flu swab noted to be negative. Recommend broad- spectrum gram positive and gram-negative coverage at this time until the organism is speciated. The patient' s blood pressure and vitals noted to be stable at this time. 2. End-stage renal disease. The patient was initiated on dialysis recently with progressive chronic kidney disease, stage 5. The patient follows closely with Dr. Pickard and discussion ongoing with e patient about further transplant evaluation and workup. At this time, the patient was dialyzed on Sunday and currently has no signs of volume overload or toxemia. We will wait on cultures and if i t is assessed to be line infection or blood cultures come back positive, can consider line removal an d based on dialysis needs, may be able to hold off for 24 to 48 hours and attempt replacement of line . We will decide further based on cultures and also depending on the organism. 3. Hypertension. Recommend continuation of current medications. 4. Atrial fibrillation. Agree with plan to place on a heparin drip as the patient may need procedur e and INR also noted to be therapeutic. We will continue the patient's rate control medications. 5. Metabolic acidosis. Continue Bicitra. TIME SPENT: Total time spent with the patient is equal to 45 minutes. [id number]/[facility] #: [id number]
[2018-08-18] MEDS: Heparin DRIP 25,000 UNITS(*) 25,000 UNITS/500 ML BAG IV SCH ×2 (21:00→23:41)
[2018-08-18] MEDS: Heparin VIAL(*) 5000 UNITS/ML VIAL (FIVE THOUSAND) IV SCH (23:37)
[2018-08-19 06:35] LABS: ABS Basophils 0.1 10^3/ul (0-0.2); ABS Eosinophils 0.5 10^3/ul (0-0.6); ABS Lymphocytes 1.4 10^3/ul (1.0-4.8); ABS Monocytes 0.8 10^3/ul (0-0.8); ABS Neutrophils 7.7 10^3/ul (1.5-7.7); ABS Nucleated RBC 0 10^3/ul; Eosinophil % 5.1 %; Hematocrit 28 % (42-52); Hemoglobin 8.9 g/dl (14.0-18.0); Mean Corpuscular HGB Conc 33 g/dl (31-36); Mean Corpuscular Hemoglobin 28 pg (27-31); Mean Corpuscular Volume 85 fL (80-94); Mean Platelet Volume 7.2 fL (7.4-10.4); Nucleated Red Blood Cells % 0; Platelet Count 268 10^3/ul (150-450); Red Blood Count 3.22 10^6/ul (4.00-5.40); Red Cell Distribution Width 15 % (10.5-15); White Blood Count 10.4 10^3/ul (3.5-10.8)
[2018-08-19 06:41] LABS: INR 1.31 (0.77-1.02)
[2018-08-19 07:03] LABS: BUN/Creatinine Ratio 9.5 (8-20); Calcium 9.7 mg/dL (8.6-10.3); EGFR African American 7.8 (>60); EGFR Non-African American 6.4 (>60); Potassium 4.1 mmol/L (3.5-5.0)
[2018-08-19] MEDS: Bumetanide TAB* 2 MG PO SCH (08:58)
[2018-08-19] MEDS: amLODIPine TAB* 5 MG PO SCH (08:58)
[2018-08-19] MEDS: Diltiazem CD CAP* 180 MG PO SCH (08:59)
[2018-08-19] MEDS: Aspirin EC TAB* 81 MG TAB.EC PO SCH (08:59)
[2018-08-19] MEDS: Sevelamer TAB* 800 MG PO SCH ×3 (08:59→20:15)
[2018-08-19] MEDS: Metoprolol Tartrate TAB* 25 MG PO SCH ×2 (08:59→20:15)
[2018-08-19] MEDS: Calcitriol CAP* 0.25 MCG PO SCH (09:00)
[2018-08-19] MEDS: Cefepime 1 GM in Dextrose(*) 1 GM/50 ML BAG IV SCH (09:00)
[2018-08-19] MEDS: Sodium Citrate/Citric Acid* 15 ML UDC PO SCH ×3 (09:00→20:15)
[2018-08-19] MEDS ORDERED: EPOETIN ALFA-EPBX * 10,000 UNIT/ML VIAL IV ONE (13:15)
--- NOTE | 2018-08-19 13:33 | CONS ---
CONSULTATION REPORT: DATE OF CONSULT: 08/19/18 REQUESTING PHYSICIAN: Yecenia Chester MD. CONSULTING SERVICE: Infectious Disease. REASON FOR CONSULTATION: Fever. IMPRESSION: 1. Fever after dialysis via right tunneled catheter on Sunday, had associated rigors and sweats. All symptoms resolved on broad-spectrum antibiotics. Going to have dialysis again today. Blood cultures are negative at 24 hours, could be a slow-growing organism present. He does still urinate. Last straight catheter urinalysis showed no blood, 1+ leukocyte esterase, he has now a change in his urine and urine cultures negative, seems less likely to be urinary tract infection. He has no other prostatic material present. 2. Stage 5 chronic kidney disease. Hemodialysis for the 6 weeks. 3. Atrial fibrillation. 4. Obstructive uropathy. 5. Hypertension. RECOMMENDATION: Agree with broad-spectrum antibiotics. We will hold the blood cultures for 5 days. Plan on completing a week's worth of vancomycin post hemodialysis assuming all the cultures are negative. HISTORY OF PRESENT ILLNESS: This is a 68-year-old man on hemodialysis is doing well until Sunday. A couple of hours after dialysis, he woke from a nap with fever, shaking chills, and sweats. Temp was 102. His brought him to the emergency room. He had a white blood cell count of 19,000. He was started on vancomycin and cefepime. Blood cultures were went. They were negative for 24 hours. His white count is down to 10 today. He has been afebrile other than the first night. He has no focal pain. He has no nausea, vomiting, diarrhea, or abdominal pain. PAST MEDICAL HISTORY: 1. Stage 5 chronic kidney disease, right tunneled IJ catheter. 2. Atrial fibrillation. 3. Obstructive uropathy, self catheterizes. 4. Chronic anemia. 5. Hypertension. 6. Status post tonsillectomy. MEDICATIONS: 1. Tylenol. 2. Amlodipine. 3. Aspirin. 4. Bumex. 5. Calcitriol. 6. Diltiazem. 7. Heparin infusion. 8. Lorazepam. 9. Cefepime 1 g IV daily. 10. Metoprolol. 11. Sevelamer. 12. Vancomycin. ALLERGIES: No known drug allergies. FAMILY HISTORY: Both parents . SOCIAL HISTORY: He lives with his in [place]. They have some dogs; no puppies. No cats. No sick contacts. No travel. REVIEW OF SYSTEMS: All negative except as noted above to a 14-point review. PHYSICAL EXAM: Vital Signs: Temperature 36, heart rate 60, respiratory rate 18 , blood pressure 150/70, oxygen saturation is 100% on room air. In general, he is awake, not in distress. Neurologic: He is oriented x3, follows all commands. HEENT: There is no conjunctival hemorrhage. Oropharynx is without lesions. Neck is supple, without mass. Heart has regular rate and rhythm, without murmurs, rubs, or gallops. Lungs are clear to auscultation bilaterally. Abdomen: Soft, nontender, and nondistended. There are bowel sounds present. Skin: There is no rash or splinter hemorrhage. The right tunneled IJ catheter site slight crust; there is no erythema or fluctuance. Musculoskeletal: There is no spine tenderness to palpation. DIAGNOSTIC STUDIES/LAB DATA: White blood cell count 10, hemoglobin 8.9, platelets 268. Creatinine is 8, potassium 4, bicarb 25, anion gap 15. Please see impression and recommendations outlined above. Thank you for asking me to see Mr. Gould in consultation. [id number]/[facility] #: [id number] [facility]
--- NOTE | 2018-08-19 17:13 | PN ---
Subjective Date of Service: 08/19/18 Interval History: HD # 3 on 08/19/18 68 yo M with PMH A fib on AC, ESRD 2/2 CKD on HD, HTn, anxiety who presented after fever/rigors in outpt HD, cultures with NGTD Overnight, no acute events, remains afebrile, VS otherwise stable satting well on RA, BP 140s-150s/80s, HR 50s-70s. Tolerating diet, voiding freely. This morning seen with at bedside prior to HD, feels well, no acute complaints. Discussed case and lack of compelling culture data, will have ID and Nephrology consult together, no contraindications to dialysis today. Objective Active Medications: Acetaminophen (Tylenol Tab*) 650 mg PO Q6H PRN PRN Reason: FEVER/PAIN Amlodipine Besylate (Norvasc Tab*) 10 mg PO DAILY [facility] Last Admin: 08/19/18 08:58 Dose: 10 mg Aspirin (Aspirin Ec Tab*) 81 mg PO DAILY [facility] Last Admin: 08/19/18 08:59 Dose: 81 mg Bumetanide (Bumex Tab*) 2 mg PO DAILY [facility] Last Admin: 08/19/18 08:58 Dose: 2 mg Calcitriol (Rocaltrol Cap*) 0.25 mcg PO BID [facility] Last Admin: 08/19/18 09:00 Dose: Not Given Citric Acid/Sodium Citrate (Bicitra*) 30 ml PO TID [facility] Last Admin: 08/19/18 13:23 Dose: 30 ml Diltiazem HCl (Cardizem Cd Cap*) 180 mg PO DAILY [facility] Last Admin: 08/19/18 08:59 Dose: 180 mg Heparin Sodium (Porcine) (Heparin Vial(*)) 0 units IV .PER PROTOCOL [facility] Last Admin: 08/18/18 23:37 Dose: 2,750 units Heparin Sodium/Dextrose (Heparin Drip 25,000 Units(*)) 25,000 units in 500 mls @ 0 mls/hr IV PER RATE [facility]; Protocol Last Admin: 08/18/18 23:41 Dose: 23 mls/hr Cefepime HCl (Maxipime 1 Gm In Dextrose Duplex (*)) 1 gm in 50 mls @ 100 mls/ hr IV Q24H [facility] Last Admin: 08/19/18 09:00 Dose: 100 mls/hr Lorazepam (Ativan Tab(*)) 0.5 mg PO BID PRN PRN Reason: ANXIETY Metoprolol Tartrate (Lopressor Tab*) 25 mg PO BID [facility] Last Admin: 08/19/18 08:59 Dose: 25 mg Ondansetron HCl (Zofran Inj*) 4 mg IV Q6H PRN PRN Reason: NAUSEA Pharmacy Consult (Vancomycin Per Pharmacy*) 1 note FOLLOW UP . PRN PRN Reason: PER PROTOCOL Sertraline HCl (Zoloft*) 25 mg PO DAILY [facility] Sevelamer Carbonate (Renvela Tab*) 800 mg PO TID [facility] Last Admin: 08/19/18 13:23 Dose: 800 mg Vital Signs - 8 hr 08/19/18 11:31 Temperature 97.5 F Pulse Rate 60 Respiratory 18 Rate Blood Pressure 152/70 (mmHg) O2 Sat by Pulse 100 Oximetry Oxygen Devices in Use Now: None Appearance: Well man in NAD Eyes: No Scleral Icterus, PERRLA Ears/Nose/Mouth/Throat: NL Teeth, Lips, Gums, Mucous Membranes Moist Neck: NL Appearance and Movements; NL JVP Respiratory: Symmetrical Chest Expansion and Respiratory Effort, Clear to Auscultation Cardiovascular: NL Sounds; No Murmurs; No JVD, RRR Abdominal: NL Sounds; No Tenderness; No Distention Lymphatic: No Cervical Adenopathy Extremities: No Edema Skin: No Rash or Ulcers Neurological: Alert and Oriented x 3 Lines/Tubes/Other Access: Clean, Dry and Intact Central Line - HD, Tunneled Cath Result Diagrams: 08/19/18 06:24 08/19/18 06:24 Microbiology and Other Data: Microbiology 08/17/18 17:43 Influenza Types A,B Antigen - Final Nasopharyngeal Specimen received for Influenza A/B Molecular testing Blood Cx: NGTD 08/17 Urine Cx: NGTD 08/17 Assess/Plan/Problems-Billing Assessment: 68 yo M with PMH A fib on AC, ESRD 2/2 CKD on HD, HTn, anxiety who presented after fever/rigors in outpt HD, cultures with NGTD - Patient Problems (1) Sepsis Current Visit: Yes Status: Acute Comment: Resolved -Culture data with NGTD, d/c Cefipime, continue post HD Vanco x 1 week -Will hold cultures for 24 -If Line infection, will need exchange/replacement and can consider line holiday for 24-48h if warranted based on cultures,organism and dialysis needs (2) A-fib Current Visit: Yes Status: Acute Code(s): I48.91 - UNSPECIFIED ATRIAL FIBRILLATION SNOMED Code(s): 44038235 Comment: Continue rate control meds -Resume Warfarin 2.5mg, subtherapeutic, can stop heparin gtt in AM -Subtherpeutic inr not acute hospitlization indication (3) ESRD (end stage renal disease) Current Visit: Yes Status: Acute Code(s): N18.6 - END STAGE RENAL DISEASE SNOMED Code(s): 34550246 Comment: Dialysed today 08/19 wihtou problems during dialysis No evidence of toxemia or volume overload -Can hold PO calcitrol (4) Hypertension Current Visit: Yes Status: Acute Code(s): I10 - ESSENTIAL (PRIMARY) HYPERTENSION SNOMED Code(s): 49819878 Comment: continue Dilt, Amlodipine (5) Chronic anemia Current Visit: No Status: Acute Code(s): D64.9 - ANEMIA, UNSPECIFIED SNOMED Code(s): 975122418 Comment: - Stable at baseline. (6) Anxiety Current Visit: Yes Status: Acute Code(s): F41.9 - ANXIETY DISORDER, UNSPECIFIED SNOMED Code(s): 42813926 Comment: -Sertraline, low dose ativan as per home med (7) Distended bladder Current Visit: No Status: Acute Code(s): N32.89 - OTHER SPECIFIED DISORDERS OF BLADDER SNOMED Code(s): 39370126 Comment: Self caths at baseline (8) DVT prophylaxis Current Visit: No Status: Acute Code(s): QUR1291 - SNOMED Code(s): 178914737 Comment: - Heparin coumadin bridge Status and Disposition: Likely stable for d/c tomorrow
[2018-08-19] MEDS: Warfarin TAB(*) 2.5 MG PO SCH (18:14)
[2018-08-19] MEDS: Sertraline* 25 MG TAB PO SCH (18:14)
[2018-08-19] MEDS ORDERED: Vancomycin(*) 500 MG in NS 0.9% 250 ML* 250 ML IVPB ONE (18:30)
[2018-08-19] MEDS: Heparin DRIP 25,000 UNITS(*) 25,000 UNITS/500 ML BAG IV SCH (21:10)
[2018-08-20 07:36] VITALS: BP 154/74
[2018-08-20] MEDS: Sertraline* 25 MG TAB PO SCH (07:36)
[2018-08-20] MEDS: Sodium Citrate/Citric Acid* 15 ML UDC PO SCH (07:36)
[2018-08-20] MEDS: Warfarin TAB(*) 2.5 MG PO SCH (07:37)
[2018-08-20] MEDS: amLODIPine TAB* 5 MG PO SCH (07:37)
[2018-08-20] MEDS: Sevelamer TAB* 800 MG PO SCH (07:37)
[2018-08-20] MEDS: Bumetanide TAB* 2 MG PO SCH (07:37)
[2018-08-20] MEDS: Diltiazem CD CAP* 180 MG PO SCH (07:38)
[2018-08-20] MEDS: Metoprolol Tartrate TAB* 25 MG PO SCH (07:38)
[2018-08-20] MEDS: Aspirin EC TAB* 81 MG TAB.EC PO SCH (07:38)
[2018-08-20 08:45] LABS: ABS Basophils 0.1 10^3/ul (0-0.2); ABS Eosinophils 0.6 10^3/ul (0-0.6); ABS Lymphocytes 1.4 10^3/ul (1.0-4.8); ABS Monocytes 0.7 10^3/ul (0-0.8); ABS Neutrophils 6.1 10^3/ul (1.5-7.7); ABS Nucleated RBC 0 10^3/ul; Eosinophil % 6.3 %; Hematocrit 30 % (42-52); Hemoglobin 9.8 g/dl (14.0-18.0); Lymphocyte % 15.4 %; Mean Corpuscular HGB Conc 33 g/dl (31-36); Mean Corpuscular Hemoglobin 28 pg (27-31); Mean Corpuscular Volume 86 fL (80-94); Mean Platelet Volume 7.4 fL (7.4-10.4); Nucleated Red Blood Cells % 0; Platelet Count 328 10^3/ul (150-450); Red Blood Count 3.49 10^6/ul (4.00-5.40); Red Cell Distribution Width 15 % (10.5-15); White Blood Count 8.8 10^3/ul (3.5-10.8)
[2018-08-20 09:02] LABS: BUN/Creatinine Ratio 7.9 (8-20); Calcium 10.1 mg/dL (8.6-10.3); EGFR African American 11.3 (>60); EGFR Non-African American 9.3 (>60); Potassium 4.8 mmol/L (3.5-5.0)
--- NOTE | 2018-08-20 09:16 | PN ---
Subjective Date of Service: 08/20/18 Interval History: HD # 4 on 08/20/18 68 yo M with PMH A fib on AC, ESRD 2/2 CKD on HD, HTn, anxiety who presented after fever/rigors in outpt HD, cultures with NGTD Overnight, no acute events, remains afebrile, VS stable, mild HTN 154/90. Tolerating diet, voiding freely. This morning seen at beside feels well, no acute complaints. Discussed case and lack of compelling culture data, will have ID and Nephrology consulted and agree on 1 week post HD Vanco, discussed with Dr. Pickard Objective Active Medications: Acetaminophen (Tylenol Tab*) 650 mg PO Q6H PRN PRN Reason: FEVER/PAIN Amlodipine Besylate (Norvasc Tab*) 10 mg PO DAILY [facility] Last Admin: 08/20/18 07:37 Dose: 10 mg Aspirin (Aspirin Ec Tab*) 81 mg PO DAILY [facility] Last Admin: 08/20/18 07:38 Dose: 81 mg Bumetanide (Bumex Tab*) 2 mg PO DAILY [facility] Last Admin: 08/20/18 07:37 Dose: 2 mg Citric Acid/Sodium Citrate (Bicitra*) 30 ml PO TID [facility] Last Admin: 08/20/18 07:36 Dose: 30 ml Diltiazem HCl (Cardizem Cd Cap*) 180 mg PO DAILY [facility] Last Admin: 08/20/18 07:38 Dose: 180 mg Heparin Sodium (Porcine) (Heparin Vial(*)) 0 units IV .PER PROTOCOL [facility] Last Admin: 08/18/18 23:37 Dose: 2,750 units Lorazepam (Ativan Tab(*)) 0.5 mg PO BID PRN PRN Reason: ANXIETY Metoprolol Tartrate (Lopressor Tab*) 25 mg PO BID [facility] Last Admin: 08/20/18 07:38 Dose: 25 mg Ondansetron HCl (Zofran Inj*) 4 mg IV Q6H PRN PRN Reason: NAUSEA Pharmacy Consult (Vancomycin Per Pharmacy*) 1 note FOLLOW UP . PRN PRN Reason: PER PROTOCOL Sertraline HCl (Zoloft*) 25 mg PO DAILY [facility] Last Admin: 08/20/18 07:36 Dose: 25 mg Sevelamer Carbonate (Renvela Tab*) 800 mg PO TID [facility] Last Admin: 08/20/18 07:37 Dose: 800 mg Warfarin Sodium (Coumadin Tab(*)) 2.5 mg PO DAILY [facility]; Protocol Last Admin: 08/20/18 07:37 Dose: 2.5 mg Vital Signs - 8 hr 08/20/18 08/20/18 03:41 07:26 Temperature 98.1 F 98.7 F Pulse Rate 56 70 Respiratory 18 18 Rate Blood Pressure 141/62 154/74 (mmHg) O2 Sat by Pulse 99 99 Oximetry Oxygen Devices in Use Now: None Appearance: well man in NAD Eyes: No Scleral Icterus, PERRLA Ears/Nose/Mouth/Throat: NL Teeth, Lips, Gums, Mucous Membranes Moist Neck: NL Appearance and Movements; NL JVP Respiratory: Symmetrical Chest Expansion and Respiratory Effort, Clear to Auscultation Cardiovascular: NL Sounds; No Murmurs; No JVD, RRR Abdominal: NL Sounds; No Tenderness; No Distention, No Hepatosplenomegaly Lymphatic: No Cervical Adenopathy Extremities: No Edema Skin: No Rash or Ulcers Neurological: Alert and Oriented x 3 Result Diagrams: 08/20/18 08:26 08/20/18 08:26 Microbiology and Other Data: Microbiology 08/17/18 17:43 Influenza Types A,B Antigen - Final Nasopharyngeal Specimen received for Influenza A/B Molecular testing Blood Cx: NGTD 08/17 Urine Cx: NGTD 08/17 Assess/Plan/Problems-Billing Assessment: 68 yo M with PMH A fib on AC, ESRD 2/2 CKD on HD, HTn, anxiety who presented after fever/rigors in outpt HD, cultures with NGTD - Patient Problems (1) Sepsis Current Visit: Yes Status: Acute Comment: Resolved -Culture data with NGTD, d/c Cefipime, continue post HD Vanco x 1 week -Will hold cultures for 5 days (2) A-fib Current Visit: Yes Status: Acute Code(s): I48.91 - UNSPECIFIED ATRIAL FIBRILLATION SNOMED Code(s): 64214518 Comment: Continue rate control meds -Resume Warfarin 2.5mg, subtherapeutic, can stop heparin gtt, INr pending from this AM likelyhome on 5mg on Sun/, 2.5mg on other days, FU in 1 week -Subtherpeutic inr not acute hospitlization indication (3) ESRD (end stage renal disease) Current Visit: Yes Status: Acute Code(s): N18.6 - END STAGE RENAL DISEASE SNOMED Code(s): 11909266 Comment: Dialysed 08/19 wihtou problems during dialysis No evidence of toxemia or volume overload -Can hold PO calcitrol (4) Hypertension Current Visit: Yes Status: Acute Code(s): I10 - ESSENTIAL (PRIMARY) HYPERTENSION SNOMED Code(s): 04168974 Comment: continue Dilt, Amlodipine (5) Chronic anemia Current Visit: No Status: Acute Code(s): D64.9 - ANEMIA, UNSPECIFIED SNOMED Code(s): 432853535 Comment: - Stable at baseline. (6) Anxiety Current Visit: Yes Status: Acute Code(s): F41.9 - ANXIETY DISORDER, UNSPECIFIED SNOMED Code(s): 43365897 Comment: -Sertraline, low dose ativan as per home med (7) Distended bladder Current Visit: No Status: Acute Code(s): N32.89 - OTHER SPECIFIED DISORDERS OF BLADDER SNOMED Code(s): 38098147 Comment: Self caths at baseline (8) DVT prophylaxis Current Visit: No Status: Acute Code(s): EOX1114 - SNOMED Code(s): 411154760 Comment: - Heparin coumadin bridge Status and Disposition: Likely stable for d/c
[2018-08-20 09:28] LABS: INR 1.1 (0.77-1.02)
[2018-08-20 09:53] LABS: Vancomycin Random 16.4 mcg/mL
--- NOTE | 2018-08-20 22:39 | DS ---
CC: Dr. Hunter* DISCHARGE SUMMARY: DATE OF ADMISSION: 08/17/18. DATE OF DISCHARGE: 08/20/18 PRIMARY CARE PROVIDER: Dr. Hunter. PRIMARY DIAGNOSIS: Fever. SECONDARY DIAGNOSES: 1. End-stage renal disease, on hemodialysis through tunneled catheter. 2. Atrial fibrillation 3. Neurogenic bladder with self cath. 4. Chronic anemia. 5. Metabolic acidosis secondary to renal dysfunction. 6. Hypertension. MEDICATIONS ON DISCHARGE: Are as follows: 1. Amlodipine 5 mg p.o. b.i.d. per his home medication. 2. Sertraline 25 mg p.o. daily. 3. Sevelamer 800 mg p.o. t.i.d. 4. Bicitra 30 mL p.o. t.i.d. 5. Dialyvite 1 tab p.o. daily. 6. Aspirin 81 mg p.o. daily. 7. Bumex or bumetanide 2 mg p.o. daily. 8. Diltiazem CD 180 mg p.o. daily. 9. Lorazepam 0.5 mg p.o. b.i.d. p.r.n. 10. Metoprolol tartrate 25 mg p.o. b.i.d. 11. Warfarin 2 to 5 mg p.o. daily depending on INR dosing. The medication changes on this discharge are as follows: He will be dosed with vancomycin post hemodialysis for an additional week after hospitalization. HISTORY OF PRESENT ILLNESS AND HOSPITAL COURSE: Are as follows: This is a 68-year-old man with above past medical history, who presented to the emergency room on 08/17/18, who was noted to have fever after hemodialysis session. He was having chills and sweaty. His checked his temperature and she noted that was over 100. In the emergency room, he was febrile to 102. He was in atrial fibrillation, the rate controlled in the low 100s. He was satting well on room air. His blood pressure was stable. His labs were notable for white blood cell count of 19,000. He had a H and H that was notable for a mild anemia and platelets were unremarkable. His BMP was consistent with a patient with ESRD with elevated creatinine and not particularly off baseline. Damon cultures were drawn in the emergency room including a chest x-ray, which did not show any infiltrate. An EKG was done that showed an ST depression pattern that was similar to prior. He was admitted to the medical service for further evaluation and treatment. While on the medical floor, his hospital course by problem is as follows: 1. Sepsis with fever, elevated heart rate and white blood cell count. His criteria met for sepsis of unclear source, which was thought initially to be from a line infection, although he does self-catheterize at baseline. He had urine cultures, blood cultures drawn, which were no growth to date. For his entire hospitalization, he was placed on vancomycin and cefepime initially, although that was narrowed to vancomycin alone, as the urine cultures came back negative. He completed successful hemodialysis on 08/19/18 without any febrile events. ID was consulted on this case to determine the appropriateness of line exchange in a patient with tunneled catheterization with fever and sepsis of unknown source. Given his dramatic improvement on vancomycin with negative blood cultures prior to administration of antibiotics, the decision was made not to remove the line at this time, which Nephrology was in agreement with. Ultimately, the decision to dose the patient with vancomycin for 1 week additional after discharge was made and if fever were to spike again during hemodialysis plan for line exchange would occur. 2. ESRD. As noted from above, he was dialyzed in the hospital without complications. 3. Hypertension. His home meds were continued. 4. Atrial fibrillation. Of note, his INR is subtherapeutic on admission. He was placed on heparin drip while we attempted to bridge to Coumadin. His Coumadin dose was increased slightly and his INR at time of discharge was 1.44. He was discharged on a higher dose of Coumadin and will need to follow up with primary care provider to continue titration of his slightly subtherapeutic INR with a goal of 2 to 3. For atrial fibrillation, he plans on stopping into a family medicine later this week. No other active problems were managed in this hospitalization. Discussion with Infectious Disease and Nephrology happened on multiple days, and ultimately the decision was to discharge the patient to home with plan to provide vancomycin at hemodialysis for 1 week afterwards. His vitals on day of discharge were as follows: He was normotensive and afebrile. He remained afebrile throughout his hospitalization after the ER. Pulse rate was in the 70s, respiratory rate 18, satting 99% on room air. His physical exam is notable for a very well-appearing man, in no acute distress. His lungs are clear to auscultation bilaterally. Cardiovascular, he is regular rate and rhythm. No murmurs, rubs or gallops. His belly is soft, nontender, nondistended. He has no edema. He has a tunneled catheter in place at right. Otherwise, his skin is without rash or ulcer. He is alert and oriented x3. LABORATORY DATA: His labs on day of discharge were notable for a mild normocytic anemia at 9.8/30. Otherwise, white count was 8.8 and platelets 328. BMP was notable for sodium of 138, potassium 4.8, chloride 102, bicarb 24, BUN 48, and creatinine of 6.06, which is his baseline given this is an ESRD patient. Microbiology of note was negative for influenza. Blood cultures were no growth to date since 08/17/18. Urine cultures were no growth to date since 08/17/18. Imaging done included a chest x-ray, which was unremarkable. REVIEW OF SYSTEMS: Review of systems done on day of discharge negative for a 10 - point review of systems. Discussion with he and his they felt comfortable with the plan to discharge to home and continue to monitor his symptoms with plan to continue vancomycin per ID recommendations at hemodialysis and Dr. Pickard is in agreement with this plan on day of discharge is contacted by phone. Primary care provider, who is Dr. Hunter is CC'd on this note. Issues to follow up on post hospitalization. 1. Subtherapeutic INR. He was told to take 5 mg of Coumadin on Tuesdays and with additional days at 2 mg, which is his home dose. He will follow up later this week to do self check [facility] and they will plan on dose adjusting from there. 2. Fever in the setting of recent hemodialysis. He has no obvious infectious source for the fever, although certainly could be viral in nature. Out of abundance of precaution, vancomycin will be dosed post HD by Dr. Pickard for the next week, and he is aware of this plan and can be dosed and ordered by the Nephrology Team. Otherwise, no active problems were managed. Please do not hesitate to contact us if there are any questions regarding the care of this patient during this hospitalization. [id number]/[facility] #: [id number] [facility]
== END 2018-08-20 11:15 | disposition home or self-care (01) | DRG 871 ==
LOC: ED 17:12 → MED 20:09
PROVIDERS: ADMIT Internal Medicine; ATTEND Internal Medicine
PROC: 5A1D70Z Performance of Urinary Filtration, Intermittent, Less than 6 Hours Per Day (ICD-10-PCS; principal; 2018-08-19)
DX: A41.9 Sepsis, unspecified organism (principal); N18.6 End stage renal disease; I12.0 Hypertensive chronic kidney disease with stage 5 chronic kidney disease or end stage renal disease; E87.2 Acidosis; I48.91 Unspecified atrial fibrillation; N31.9 Neuromuscular dysfunction of bladder, unspecified; D64.9 Anemia, unspecified; N13.9 Obstructive and reflux uropathy, unspecified; R79.1 Abnormal coagulation profile; Z99.2 Dependence on renal dialysis; Z79.01 Long term (current) use of anticoagulants; Z79.82 Long term (current) use of aspirin; Z79.899 Other long term (current) drug therapy
CPT/HCPCS: 36415; 71045; 80048; 80053; 80202; 81003; 81015; 83605; 85025; 85610; 85652; 85730; 86140; 87040; 87086; 93005; 99284; A9270-GY; J0692; J1644; J2543; J3370

== ENCOUNTER → 2019-03-05 09:41 | Day surgery (SDC) | payer MEDICARE, OTHER ==
--- NOTE | 2019-02-25 14:45 | HP ---
AMENDED REPORT NOW INCLUDES DESIGNATED COSIGNER CC: Dr. Hunter; Dr. Petersen at Cardiology; Dr. Pickard; Meghan Garcia, activity coordinator at [facility] in [place] ADMISSION HISTORY AND PHYSICAL: DATE OF ADMISSION: 03/05/19 ATTENDING SURGEON: Dr. Milad Lau.* (DICTATED BY DONTA MONTES DE OCA) CHIEF COMPLAINT: End stage renal disease; desire for peritoneal dialysis access. HISTORY OF PRESENT ILLNESS: This is a 68-year-old male with history of obstructive uropathy leading to acute kidney injury in 2013 for which he required temporary hemodialysis. He was again found to have a declining kidney function in 2018 with fluid retention and decreased creatinine clearance requiring re-initiation of hemodialysis. He was also found in early July this year to be in atrial fibrillation and has been on anticoagulation since that time. He was also admitted later in July from 08/17/18 to 08/20/18 for sepsis without clear defined etiology. He responded well to the antibiotics and did not require removal or replacement of his hemodialysis catheter. He is currently maintained on a Sunday, , and Sunday hemodialysis schedule and was seen by Dr. Lau on 01/28/19 for consideration of PD cath replacement. He has not had any prior abdominal surgeries. He is under consideration for future transplantation. He was considered or recommended for an AV fistula, but he refused. PAST MEDICAL HISTORY: End stage renal disease as noted above; arbitral fibrillation, on chronic anticoagulation (see below for medication changes perioperatively), hypertension, BPH, seasonal allergies, and anxiety. PAST SURGICAL HISTORY: His only surgeries have been tonsillectomy removal and placement of a tunneled hemodialysis catheter. No complications reported. MEDICATIONS: 1. Cardia XL 300 mg once daily. 2. Sodium citrate 30 mL t.i.d. 3. Aspirin 81 mg q. day (he will continue perioperative). 4. Bumex 2 mg once daily. 5. Metoprolol succinate 25 mg b.i.d. 6. Renvela 800 mg t.i.d. 7. Amlodipine 5 mg b.i.d. 8. Calcitriol 3 times weekly at dialysis. 9. Sertraline 25 mg once daily. 10. Multivitamin once daily. 11. Coumadin 5 mg once daily with the exception of Sunday's when he takes 2.5 mg. His last dose will be 02/26/19 and will be resumed postoperatively at Dr. Lau's direction. He will also be bridged with Lovenox 40 mg once daily beginning on 03/01/19 and continuing up to his last dose on 03/02/19. ALLERGIES: Unknown. FAMILY HISTORY: Noncontributory in terms of anesthesia problems, bleeding, or clotting disorders. SOCIAL HISTORY: The patient is . He is a non-smoker, does not drink alcohol or use any recreational drugs REVIEW OF SYSTEMS: General: No additional constitutional symptoms other than as noted above including his 2 hospitalizations in July. HEENT: No problems reported. Cardiovascular: History of hypertension. No chest pain or palpitations, see also Dr. Petersen's note regarding recent cardiac workup and testing. Respiratory: No history of asthma, chronic cough or shortness of breath. GI: No problems reported. Colonoscopy completed recently with removal of benign polyps. : As above. He underwent recent prostate biopsy, which he states was benign. He does self catheterize because of neurogenic bladder. Endocrine: No diabetes or thyroid dysfunction. PHYSICAL EXAMINATION GENERAL: He is well-nourished, well-developed male, in no acute distress. Skin warm and dry. No suspicious rashes or lesions. VITAL SIGNS: Height 71 inches, weight 178 pounds, blood pressure 158/70, pulse 60, respirations 16. HEENT: Pupils are equal, round, and reactive. EOMs intact. No conjunctival pallor. Oropharynx: Teeth in good repair. No intraoral lesions. NECK: No lymphadenopathy, thyromegaly, or masses. LUNGS: Clear to auscultation. No rales or wheezes. He has a right upper chest tunneled catheter in place. Dressing is clean and dry. HEART: Regular rate and rhythm. No murmur noted. ABDOMEN: Soft, nontender to palpation. No palpable masses or organomegaly. GENITAL: Not done. RECTAL: Not done. BACK: No spinous process or CVA tenderness. EXTREMITIES: No edema through his compression stockings which he wears daily. NEUROLOGICAL: Grossly intact. IMPRESSION: Endstage renal disease with desire for peritoneal dialysis access. PLAN: Laparoscopic placement of peritoneal dialysis catheter. DONTA MONTES DE OCA [id number]/[facility] #: [id number] MONTRELL
[~2019-03-05 09:41] MED LIST: Acetaminophen TAB* 325 MG PO PRN; Buffered Lidocaine 1% SYRIN* 1 ML/SYRINGE INTRADERM ONE; Bupivacaine 0.25% EPI 200,000* 30 ML SDV ONE; Bupivacaine 0.25% W/EPI* 10 ML SDV ONE; Cisatracurium* 2 MG/ML MDV 5 ML ONE; Dexamethasone IV* 4 MG/ML 1 ML (4 MG) IV SLOW PU ONE; Dexamethasone IV* 4 MG/ML 1 ML (4 MG) ONE; DiMENhydriNATE IV* 50 MG/ML VIAL IV PUSH PRN; EPHEDrine (Pressors)* 50 MG/ML VIAL ONE; Glycopyrrolate IV* 0.2 MG/ML 1 ML VIAL ONE; Heparin DIALYSIS ONLY(*) 1,000 UNITS/ML VIAL ONE; Heparin VIAL(*) 5000 UNITS/ML VIAL (FIVE THOUSAND) ONE; Lidocaine 2% PF * 5 ML VIAL ONE; Midazolam* 1 MG/ML 2 ML VIAL (2 MG) ONE; NS 0.45% 1000 ML BAG* 1,000 ML IV SCH; Naloxone* 0.4 MG/ML 1 ML VIAL IV PRN; Neostigmine Methylsulfate* 3 MG/3 ML SYRINGE ONE; Ondansetron INJ* 2 MG/ML VIAL ONE; Propofol* 10 MG/ML 20 ML BTL ONE; ceFAZolin 2 GM in NS PREMIX(*) 2 GM/100 ML BAG IVPB ONE; fentaNYL* 50 MCG/ML 2 ML VIAL (100 MCG VIAL) IV PRN; fentaNYL* 50 MCG/ML 2 ML VIAL (100 MCG VIAL) ONE; oxyCODONE/Acetamin 5/325 MG* TAB PO PRN
--- NOTE | 2019-03-05 13:39 | BRIEFOPN ---
Brief Operative Note - Surgery Procedures: Procedures Pre-OP Diagnoses: ESRD Post-op Diagnosis: same Procedure: Laparoscopic placement of peritoneal dialysis catheter, omentopexy Surgeon: Judi Asst: none Anethesia: DENIA EBL: minimal IVF: minimal Specimen: none Drains: 62cm [facility] [place]
[2019-03-05 14:40] VITALS: BP 155/76
--- NOTE | 2019-03-05 21:19 | OP ---
CC: Dr. Connor Pickard; Dr. Petersen; Dr. Connor Hunter * DATE OF OPERATION: 03/05/19 - SDS DATE OF : 52 PRIMARY CARE PHYSICIAN: Dr. Connor Hunter. SURGEON: Milad Lau MD. LEGAL AID: None. ANESTHESIOLOGIST: Dr. Davison. ANESTHESIA: General anesthesia. PRE-OP DIAGNOSIS: End-stage renal disease. POST-OP DIAGNOSIS: End-stage renal disease. OPERATIVE PROCEDURE: Laparoscopic placement of peritoneal dialysis catheter and omentopexy. ESTIMATED BLOOD LOSS: Minimal blood loss. FLUIDS: Minimal crystalloid fluid given. TUBING: A 62 cm Curl cath placed. DESCRIPTION OF PROCEDURE: The patient was identified in the preoperative area. Belt line marked. He was marked and consent was signed and the patient was taken to the operating room and placed on the operating table in a supine position. Preoperative antibiotics were given. Sequential devices were placed on bilateral lower extremities. General anesthesia was induced. The patient's abdomen was prepped and draped in a standard surgical fashion and the time-out was performed. A incision was made at the Goins's point on the left. This was deepened down the anterior fascia, which was elevated and a Veress needle inserted into the abdominal cavity, which was then allowed to insufflate to a pressure of 15 mmHg. The patient tolerated the insufflation well. An 8-mm optical trocar was then inserted through this incision after removing Veress needle. Review of the abdomen showed no blood. There was no fluid in the abdomen. Small bowel appeared intact. There was no adhesions. It should be noted that the incisions that we made on the skin did bleed easily. The 5-mm trocar was then placed at the left lower quadrant and then omentopexy was performed by placing the omentum at the right upper quadrant using an 0- Vicryl suture anterior abdominal wall using an Endoclose device. Next, a 62-cm Curl cath was inserted through the 8-mm port. This was then positioned in the pelvis and brought out through separate incision through the left rectus muscle that tunneled through this muscle. We then tunneled the tubing in the appropriate fashion to the proposed exit site. We hooked it up to the dialysate and flowed well and emptied easily. Review of the abdomen showed no bleeding, no enteric contents. Before the abdomen was allowed to collapse, we closed the anterior fascia at the 5-mm port site at the left lower quadrant with an 0-Vicryl suture using Endoclose device since there had been oozing at all incision sites. We then collapsed the abdomen and took all the trocars out and then closed the anterior fascia at the left upper quadrant port site with an 0-Vicryl suture in a simple fashion. Wounds were then irrigated and reapproximated with 4-0 Monocryl subcuticular sutures followed by Steri-Strips and sterile dressing. The patient tolerated the procedure well and was woken up in the OR and transferred to the PACU in stable condition. [id number]/[facility] #: [id number] MTDGus
== END | disposition home or self-care (01) ==
LOC: OR 09:41
PROVIDERS: ATTEND Surgery
DX: I12.0 Hypertensive chronic kidney disease with stage 5 chronic kidney disease or end stage renal disease (principal); N18.6 End stage renal disease; Z79.01 Long term (current) use of anticoagulants; N13.9 Obstructive and reflux uropathy, unspecified; I48.91 Unspecified atrial fibrillation; J30.2 Other seasonal allergic rhinitis; F41.9 Anxiety disorder, unspecified; Z79.82 Long term (current) use of aspirin
CPT/HCPCS: 36415; 84132; J0690; J1100; J1644; J2250; J2405; J2704; J2710; J3010

== ENCOUNTER 2023-08-02 10:50 | Observation (INO) ==
[2023-08-02 12:26] LABS: Hematocrit 28.2 % (38-53); Hemoglobin 9.5 g/dL (13.2-16.3); Mean Corpuscular Hemoglobin 31.6 pg (27-33); Mean Corpuscular Hgb Conc 33.8 g/dL (31-36); Mean Corpuscular Volume 93.7 fL (80-97); Mean Platelet Volume 7.7 fL (7.5-11.2); Platelet Count 374 10^3/uL (150-450); Red Blood Count 3.01 10^6/uL (4.06-5.63); Red Cell Distribution Width 17.5 % (12-17); White Blood Count 2.6 10^3/uL (3.6-10.2)
[2023-08-02 12:28] LABS: Urine Appearance Cloudy; Urine Bilirubin Negative (Negative); Urine Blood Negative (Negative); Urine Color Yellow; Urine Glucose Negative (Negative); Urine Ketones Negative (Negative); Urine Nitrite Positive (Negative); Urine Protein Negative (Negative); Urine Specific Gravity 1.011 (1.002-1.030); Urine Urobilinogen Negative (Negative)
[2023-08-02 12:38] LABS: Urine Bacteria 1+ (Absent); Urine Red Blood Cell 2+(6-10/hpf) (Absent); Urine Squamous Epithelial Cell Present (Absent); Urine White Blood Cell 3+(>20/hpf) (Absent)
[2023-08-02 12:42] LABS: Albumin 3.9 g/dL (3.2-5.2); Albumin/Globulin Ratio 1.3 (1-3); C Reactive Protein 2.94 mg/L (<8.01); Calcium 11.7 mg/dL (8.6-10.3); Creatinine, Serum 1.32 mg/dL (0.67-1.17); Globulin 2.9 g/dL (2-4); Potassium 4.6 mmol/L (3.5-5.0); Total Bilirubin 0.5 mg/dL (0.2-1.0); Total Protein 6.8 g/dL (6.4-8.9); eGFR CKD-EPI 57.3 (>60)
[2023-08-02 12:54] LABS: ABS Eosinophils 0.1 10^3/uL (0.0-0.5); ABS Lymphocytes 0.3 10^3/uL (1.0-4.8); ABS Monocytes 0.5 10^3/uL (0.0-1.1); ABS Neutrophils 1.7 10^3/uL (1.5-7.6); ABS Nucleated RBC 0.01 10^3/ul; Eosinophil % 2.9 %; Lymphocyte % 10.3 %; Nucleated Red Blood Cells % 0.2 %/100WBC (0.0-0.8)
[2023-08-02] MEDS ORDERED: Linezolid 600 MG IVPREMIX(*) 600 MG/300 ML BAG IVPB ONE (13:01)
[2023-08-02] MEDS ORDERED: Polyethylene Glycol 3350 BTL 238 GM BTL PO PRN (16:19)
[2023-08-02] MEDS ORDERED: Polyethylene Glycol 3350 17 GM PACKET PO PRN (16:52)
[2023-08-02 19:52] LABS: Mean Corpuscular Hemoglobin 31.5 pg (27-33); Mean Corpuscular Hgb Conc 33.5 g/dL (31-36); Mean Corpuscular Volume 93.9 fL (80-97); Mean Platelet Volume 7.8 fL (7.5-11.2); Platelet Count 419 10^3/uL (150-450); Red Blood Count 3.19 10^6/uL (4.06-5.63); White Blood Count 2.8 10^3/uL (3.6-10.2)
[2023-08-02 20:10] LABS: Creatinine, Serum 1.46 mg/dL (0.67-1.17); eGFR CKD-EPI 50.8 (>60)
[2023-08-02 20:15] LABS: Activated Partial Thrombo Time 34.6 seconds (26.0-38.0); INR 1.1 (0.83-1.13)
[2023-08-02] MEDS: cycloSPORINE Modfied 100mg CAP PO SCH (20:46)
[2023-08-02] MEDS ORDERED: CINACALCET 60 MG PO SCH (21:00)
[2023-08-02 21:01] LABS: ABS Lymphocytes 0.3 10^3/uL (1.0-4.8); ABS Monocytes 0.4 10^3/uL (0.0-1.1); Eosinophil % 0.7 %; Lymphocyte % 11.5 %; Nucleated Red Blood Cells % 0.1 %/100WBC (0.0-0.8)
[2023-08-02] MEDS: Heparin 5000 UNITS/ML 1 mL VIAL SUBCUT SCH (22:08)
[2023-08-03] MEDS: Heparin 5000 UNITS/ML 1 mL VIAL SUBCUT SCH (06:30)
[2023-08-03 07:25] LABS: Calcium 11.2 mg/dL (8.6-10.3); Creatinine, Serum 1.55 mg/dL (0.67-1.17); Magnesium 1.4 mg/dL (1.9-2.7); Potassium 4.1 mmol/L (3.5-5.0); eGFR CKD-EPI 47.3 (>60)
[2023-08-03] MEDS ORDERED: Linezolid 600 MG IVPREMIX(*) 600 MG/300 ML BAG IVPB SCH (07:30)
[2023-08-03] MEDS ORDERED: Aspirin EC 81 mg TAB.EC (enteric coated) PO SCH (09:00)
[2023-08-03] MEDS ORDERED: SOFOSBUVIR PO SCH (09:00)
[2023-08-03] MEDS ORDERED: VELPATASVIR PO SCH (09:00)
[2023-08-03] MEDS: cycloSPORINE Modfied 100mg CAP PO SCH (09:07)
[2023-08-03 10:32] VITALS: BP 148/71
== END 2023-08-03 15:33 ==
LOC: ED 10:50 → INTOOBSV 15:15 → EDHOLD 15:15 → SSU 16:50
PROVIDERS: ADMIT Internal Medicine; ATTEND Internal Medicine

== ENCOUNTER 2023-08-06 21:11 | Observation (INO) ==
[2023-08-06 21:59] LABS: Hematocrit 30.2 % (38-53); Hemoglobin 10.2 g/dL (13.2-16.3); Mean Corpuscular Hemoglobin 30.7 pg (27-33); Mean Corpuscular Hgb Conc 33.6 g/dL (31-36); Mean Corpuscular Volume 91.3 fL (80-97); Mean Platelet Volume 7.8 fL (7.5-11.2); Platelet Count 320 10^3/uL (150-450); Red Blood Count 3.31 10^6/uL (4.06-5.63); Red Cell Distribution Width 17.1 % (12-17); White Blood Count 6.6 10^3/uL (3.6-10.2)
[2023-08-06 22:06] LABS: Urine Appearance Cloudy; Urine Bilirubin Negative (Negative); Urine Blood 2+ (Negative); Urine Color Yellow; Urine Glucose Negative (Negative); Urine Ketones Negative (Negative); Urine Nitrite Negative (Negative); Urine Protein 1+(30 mg/dL) (Negative); Urine Specific Gravity 1.011 (1.002-1.030); Urine Urobilinogen Negative (Negative)
[2023-08-06 22:18] LABS: Albumin 4.2 g/dL (3.2-5.2); Albumin/Globulin Ratio 1.4 (1-3); C Reactive Protein 102.07 mg/L (<8.01); Calcium 11.8 mg/dL (8.6-10.3); Creatinine, Serum 1.67 mg/dL (0.67-1.17); Globulin 3.1 g/dL (2-4); Potassium 4.4 mmol/L (3.5-5.0); Total Bilirubin 0.8 mg/dL (0.2-1.0); Total Protein 7.3 g/dL (6.4-8.9); eGFR CKD-EPI 43.2 (>60)
[2023-08-06 22:20] LABS: ABS Lymphocytes 0.2 10^3/uL (1.0-4.8); ABS Monocytes 1.2 10^3/uL (0.0-1.1); ABS Neutrophils 5.2 10^3/uL (1.5-7.6); ABS Nucleated RBC 0.01 10^3/ul; Lymphocyte % 3.3 %; Nucleated Red Blood Cells % 0.1 %/100WBC (0.0-0.8)
[2023-08-06 22:28] LABS: Urine Bacteria 1+ (Absent); Urine Red Blood Cell 2+(6-10/hpf) (Absent); Urine Squamous Epithelial Cell Present (Absent); Urine White Blood Cell 3+(>20/hpf) (Absent)
[2023-08-06] MEDS ORDERED: NS 0.9% 1000 ml BAG 1,000 ML IV ONE (23:08)
[2023-08-07 05:54] LABS: Hematocrit 22.3 % (38-53); Hemoglobin 7.7 g/dL (13.2-16.3); Mean Corpuscular Hemoglobin 31.4 pg (27-33); Mean Corpuscular Hgb Conc 34.4 g/dL (31-36); Mean Corpuscular Volume 91.1 fL (80-97); Mean Platelet Volume 7.6 fL (7.5-11.2); Platelet Count 234 10^3/uL (150-450); Red Blood Count 2.45 10^6/uL (4.06-5.63); Red Cell Distribution Width 16.7 % (12-17); White Blood Count 4.6 10^3/uL (3.6-10.2)
[2023-08-07 06:10] LABS: C Reactive Protein 102.45 mg/L (<8.01); Calcium 10.4 mg/dL (8.6-10.3); Creatinine, Serum 1.44 mg/dL (0.67-1.17); Potassium 3.7 mmol/L (3.5-5.0); eGFR CKD-EPI 51.6 (>60)
[2023-08-07 06:48] LABS: ABS Lymphocytes 0.2 10^3/uL (1.0-4.8); ABS Neutrophils 3.3 10^3/uL (1.5-7.6); Eosinophil % 0.2 %; Lymphocyte % 4.9 %; Nucleated Red Blood Cells % 0.1 %/100WBC (0.0-0.8)
[2023-08-07] MEDS ORDERED: Polyethylene Glycol 3350 17 GM PACKET PO PRN (06:57)
[2023-08-07] MEDS ORDERED: Petroleum Jelly 1.75 Oz (small jar) TOPICAL PRN (06:59)
[2023-08-07 08:10] LABS: Hematocrit 22.5 % (38-53); Hemoglobin 7.8 g/dL (13.2-16.3); Mean Corpuscular Hemoglobin 31.6 pg (27-33); Mean Corpuscular Hgb Conc 34.5 g/dL (31-36); Mean Corpuscular Volume 91.5 fL (80-97); Mean Platelet Volume 7.9 fL (7.5-11.2); Platelet Count 238 10^3/uL (150-450); Red Blood Count 2.46 10^6/uL (4.06-5.63); Red Cell Distribution Width 17.4 % (12-17); White Blood Count 4.6 10^3/uL (3.6-10.2)
[2023-08-07 08:30] LABS: Creatinine, Serum 1.44 mg/dL (0.67-1.17); eGFR CKD-EPI 51.6 (>60)
[2023-08-07 08:33] LABS: Activated Partial Thrombo Time 32.8 seconds (26.0-38.0); INR 1.28 (0.83-1.13)
[2023-08-07 10:02] LABS: ABS Lymphocytes 0.2 10^3/uL (1.0-4.8); ABS Neutrophils 3.3 10^3/uL (1.5-7.6); ABS Nucleated RBC 0.01 10^3/ul; Eosinophil % 0.4 %; Lymphocyte % 4.9 %; Nucleated Red Blood Cells % 0.1 %/100WBC (0.0-0.8)
[2023-08-07 10:03] LABS: RBC Morphology Normal (Normal)
[2023-08-07] MEDS: Heparin 5000 UNITS/ML 1 mL VIAL SUBCUT SCH ×2 (11:31→20:51)
[2023-08-07] MEDS: SOFOSBUVIR PO SCH (11:44)
[2023-08-07] MEDS: VELPATASVIR PO SCH (11:44)
[2023-08-07] MEDS: cycloSPORINE Modfied 100mg CAP PO SCH ×2 (11:45→20:51)
[2023-08-07] MEDS ORDERED: Heparin 5000 UNITS/ML 1 mL VIAL SUBCUT SCH (14:00)
[2023-08-08 06:22] LABS: Hematocrit 26.6 % (38-53); Mean Corpuscular Hemoglobin 30.7 pg (27-33); Mean Corpuscular Hgb Conc 33.6 g/dL (31-36); Mean Corpuscular Volume 91.4 fL (80-97); Mean Platelet Volume 8.1 fL (7.5-11.2); Platelet Count 270 10^3/uL (150-450); Red Blood Count 2.91 10^6/uL (4.06-5.63); White Blood Count 4.5 10^3/uL (3.6-10.2)
[2023-08-08 06:38] LABS: Calcium 11.1 mg/dL (8.6-10.3); Creatinine, Serum 1.54 mg/dL (0.67-1.17); Magnesium 1.5 mg/dL (1.9-2.7); Potassium 3.4 mmol/L (3.5-5.0); eGFR CKD-EPI 47.6 (>60)
[2023-08-08] MEDS ORDERED: Potassium EFFERVES 25 meq TAB PO ONE (07:27)
[2023-08-08] MEDS ORDERED: Magnesium Sulf 4 GM/100 ML IV 4,000 MG/100 ML BAG IVPB ONE (08:00)
[2023-08-08 08:05] LABS: ABS Eosinophils 0.1 10^3/uL (0.0-0.5); ABS Lymphocytes 0.3 10^3/uL (1.0-4.8); ABS Neutrophils 3.1 10^3/uL (1.5-7.6); ABS Nucleated RBC 0.01 10^3/ul; Eosinophil % 1.6 %; Nucleated Red Blood Cells % 0.2 %/100WBC (0.0-0.8)
[2023-08-08 08:06] LABS: RBC Morphology Normal (Normal)
[2023-08-08] MEDS ORDERED: Influenza vaccine *QUAD* *2023-24* 0.5 ML SYRINGE IM ONE (09:00)
[2023-08-08] MEDS: cycloSPORINE Modfied 100mg CAP PO SCH (09:10)
[2023-08-08] MEDS: Heparin 5000 UNITS/ML 1 mL VIAL SUBCUT SCH (09:11)
[2023-08-08] MEDS: VELPATASVIR PO SCH (12:18)
[2023-08-08] MEDS: SOFOSBUVIR PO SCH (12:18)
[2023-08-08 12:24] LABS: Ferritin 1481.8 ng/mL (24-336)
[2023-08-08 12:31] VITALS: BP 121/66
[2023-08-08 14:09] LABS: Tacrolimus <1.0 ng/mL
== END 2023-08-08 14:04 ==
LOC: ED 21:11 → EDHOLD 21:11 → SUATTDRO 08-07 00:44 → MEDTELE 08-07 07:40
PROVIDERS: ADMIT Hospitalist; ATTEND Student in an Organized Health Care Education/Training Program